=== PATIENT | female | born 1935 | race Caucasian/White ===

== ENCOUNTER 2018-08-01 14:00 | Inpatient (IN) | payer OTHER ==
[2018-08-01] MEDS ORDERED: Nitroglycerin TAB 0.4 MG* 0.4 MG TAB SL ONE (15:15)
[2018-08-01] MEDS ORDERED: Aspirin 81 mg CHEW TAB* 81 MG TAB.CHEW PO ONE (15:15)
[2018-08-01 15:33] LABS: ABS Basophils 0 10^3/ul (0-0.2); ABS Eosinophils 0.1 10^3/ul (0-0.6); ABS Lymphocytes 2.5 10^3/ul (1.0-4.8); ABS Monocytes 0.6 10^3/ul (0-0.8); ABS Neutrophils 3.7 10^3/ul (1.5-7.7); ABS Nucleated RBC 0 10^3/ul; Eosinophil % 1.2 %; Hematocrit 37 % (35-47); Hemoglobin 12.7 g/dl (12.0-16.0); Lymphocyte % 36.4 %; Mean Corpuscular HGB Conc 34 g/dl (31-36); Mean Corpuscular Hemoglobin 30 pg (27-31); Mean Corpuscular Volume 88 fL (80-97); Nucleated Red Blood Cells % 0; Platelet Count 200 10^3/ul (150-450); Red Blood Count 4.25 10^6/ul (4.00-5.40); Red Cell Distribution Width 14 % (10.5-15); White Blood Count 6.9 10^3/ul (3.5-10.8)
[2018-08-01 15:39] LABS: Activated Partial Thrombo Time 29.1 seconds (26.0-36.3); INR 0.9 (0.77-1.02)
--- NOTE | 2018-08-01 15:44 | ED ---
HPI Chest Pain - HPI Summary HPI Summary: An 83 y/o female presents to [facility] with a chief complaint of CP which she describes as a pressure since 07/30/18. She claims her pain worsens with deep breaths. She currently feels tachycardic. She rates her pain as 6/10. She has a Hx of CA, bypass and had a cardiac cath in August 2017 which reportedly did not find any issues. The patient also has a Hx of depression, but has not been taking her medication. She also c/o SOB and had PNA a few years ago. She does not take water pills. She denies pain or swelling in legs, Fever, Chills, Erythema (eyes), Sore throat, Cough, Abdominal pain, Vomiting, Nausea,Dysuria, Hematuria, Myalgia, Edema, Rash and Dizziness. 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 - History of Current Complaint Chief Complaint: EDShortnessOfBreath Time Seen by Provider: 08/01/18 14:30 Hx Obtained From: Patient, Family/Flight Agent Onset/Duration: Started Days Ago, Still Present Timing: Constant Initial Severity: Moderate Current Severity: Moderate Pain Intensity: 6 Pain Scale Used: 0-10 Numeric Chest Pain Location: Diffuse Chest Pain Radiates: No Character: Pressure/Squeezing Aggravating Factor(s): Deep Breaths Alleviating Factor(s): Nothing Associated Signs and Symptoms: Positive: Shortness of Breath. Negative: Dizziness, Fever, Chills, Nausea, Cough, Vomiting, Edema - Allergy/Home Medications Allergies/Adverse Reactions: Allergies Allergy/AdvReac Type Severity Reaction Status Date / Time Penicillins Allergy Unknown Verified 08/01/18 14:22 Reaction Details Home Medications: Home Medications Allopurinol TAB* [Zyloprim 100 MG TAB*] 200 mg PO DAILY 08/01/18 [History Confirmed 08/01/18] Aspirin EC TAB* [Ecotrin EC Low Dose 81 MG*] 81 mg PO DAILY 08/01/18 [History Confirmed 08/01/18] Citalopram TAB* [Celexa TAB*] 20 mg PO DAILY 08/01/18 [History Confirmed ] Nitroglycerin 0.3 MG/HR PATCH* [Nitroglycerin 7.5 MG PATCH*] 1 patch TRANSDERM DAILY 08/01/18 [History Confirmed 08/01/18] traZODone TAB* [Desyrel TAB*] 50 mg PO BEDTIME 08/01/18 [History Confirmed 08/01] PMH/Surg Hx/FS Hx/Imm Hx Cardiovascular History: Reports: Hx Angina, Hx Coronary Artery Disease, Hx Hypercholesterolemia, Hx Hypertension, Hx Myocardial Infarction - Immunization History Immunizations Up to Date: Yes Infectious Disease History: No Infectious Disease History: Denies: Traveled Outside the [place] in Last 30 Days - Family History Known Family History: Positive: Unknown - Pt reports parents young and is unsure of FHx - Social History Alcohol Use: None Substance Use Type: Reports: None Smoking Status (MU): Never Smoked Tobacco Have You Smoked in the Last Year: No Review of Systems Negative: Fever, Chills Negative: Erythema Negative: Sore Throat Positive: Chest Pain Positive: Shortness Of Breath. Negative: Cough Negative: Abdominal Pain, Vomiting, Nausea Negative: dysuria, hematuria Negative: Myalgia - leg, Edema - leg Negative: Rash Neurological: Negative - dizziness All Other Systems Reviewed And Are Negative: Yes Physical Exam - Summary Physical Exam Summary: Constitutional: Well-developed, Well-nourished, Alert. (-) Distressed Skin: Warm, Dry HENT: Normocephalic; Atraumatic Eyes: Conjunctiva normal Neck: Musculoskeletal ROM normal neck. (-) JVD, (-) Stridor, (-) Tracheal deviation Cardio: Rhythm regular, rate normal, Heart sounds normal; Intact distal pulses; The pedal pulses are 2+ and symmetric. Radial pulses are 2+ and symmetric. (-) Murmur Pulmonary/Chest wall: Effort normal. (-) Respiratory distress, (-) Wheezes, (+) Rales in both lungs Abd: Soft, (-) epigastric tenderness, (-) Distension, (-) Guarding, (-) Rebound Musculoskeletal: (-) Edema Lymph: (-) Cervical adenopathy Neuro: Alert, Oriented x3 Psych: Mood and affect Normal Triage Information Reviewed: Yes Vital Signs On Initial Exam: Initial Vitals Temp Pulse Resp BP Pulse Ox 97.8 F 94 18 134/66 97 08/01/18 14:17 08/01/18 14:17 08/01/18 14:17 08/01/18 14:17 08/01/18 14:17 Vital Signs Reviewed: Yes Diagnostics - Vital Signs Vital Signs Temp Pulse Resp BP Pulse Ox 08/01/18 14:17 97.8 F 94 18 134/66 97 - Laboratory Lab Results: Lab Results 08/01/18 Range/Units 15:12 WBC 6.9 (3.5-10.8) 10^3/ul RBC 4.25 (4.00-5.40) 10^6/ul Hgb 12.7 (12.0-16.0) g/dl Hct 37 (35-47) % MCV 88 (80-97) fL MCH 30 (27-31) pg MCHC 34 (31-36) g/dl RDW 14 (10.5-15) % Plt Count 200 (150-450) 10^3/ul MPV 8.0 (7.4-10.4) fL Neut % (Auto) 53.4 % Lymph % (Auto) 36.4 % [place] % (Auto) 8.5 % Eos % (Auto) 1.2 % Baso % (Auto) 0.5 % Absolute Neuts (auto) 3.7 (1.5-7.7) 10^3/ul Absolute Lymphs (auto) 2.5 (1.0-4.8) 10^3/ul Absolute Monos (auto) 0.6 (0-0.8) 10^3/ul Absolute Eos (auto) 0.1 (0-0.6) 10^3/ul Absolute Basos (auto) 0 (0-0.2) 10^3/ul Absolute Nucleated RBC 0 10^3/ul Nucleated RBC % 0 Result Diagrams: 08/04/18 06:00 08/04/18 05:59 Lab Statement: Any lab studies that have been ordered have been reviewed, and results considered in the medical decision making process. - Radiology CXR Radiology Interpretation Completed By: Radiologist Summary of Radiographic Findings: No active cardiopulmonary disease is noted. ED physician has reviewed this imaging report. - CT chest/thorax CTA CT Interpretation Completed By: Radiologist Summary of CT Findings: 1. No pulmonary embolism. 2. Patchy groundglass opacity in bilateral lungs. Etiology can be. edema/infectious. ED physician has reviewed this imaging report. - EKG 18:25 Cardiac Rate: NL - 74 bpm EKG Rhythm: Sinus Rhythm Summary of EKG Findings: no STEMI. Re-Evaluation - Re-Evaluation First Eval Re-Evaluation Time: 20:15 Change: Unchanged Comment: Spoke to Pt about results and plan Chest Pain Course/Dx - Course Course Of Treatment: An 83 y/o female presents to [facility] with a chief complaint of CP which she describes as a pressure since 07/30/18. She claims her pain worsens with deep breaths. She rates her pain as 6/10. She has a Hx of CA, bypass and had a cardiac cath in August 2017 which reportedly did not find any issues. The patient also has a Hx of depression, but has not been taking her medication. She also c/o SOB and had PNA a few years ago. She does not take water pills. She denies pain or swelling in legs, Fever, Chills, Erythema (eyes) , Sore throat, Cough, Abdominal pain, Vomiting, Nausea,Dysuria, Hematuria, Myalgia, Edema, Rash and Dizziness. 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 Her Physicial exam was remarkable with rales in both lungs. CXR impression: No active cardiopulmonary disease is noted. Chest/thorax CTA impression: 1. No pulmonary embolism. 2. Patchy groundglass opacity in bilateral lungs. Etiology can be. edema/infectious. EKG showed NSR at 74 bpm. In the ED course the patient was given Aspirin and NTG PO. Lab results obtained and were WNL. Dx: CP , PNA. The patient will be admitted to Dr. Beebe. - Diagnoses Provider Diagnoses: Chest pain, PNA (pneumonia) - Provider Notifications Discussed Care Of Patient With: Anya Beebe Time Discussed With Above Provider: 20:00 Instructed by Provider To: Admit As Inpatient Discharge - Sign-Out/Discharge Documenting (check all that apply): Patient Departure - admit - Discharge Plan Condition: Fair Disposition: ADMITTED TO [facility] - Billing Disposition and Condition Condition: FAIR Disposition: Admitted to [facility] - Attestation Statements Document Initiated by Bere: Yes Documenting Scribe: Raulito Contreras Provider For Whom Bere is Documenting (Include Credential): Ulises Fenton MD Scribe Attestation: Raulito Santos scribed for Ulises Fenton MD on 08/10/18 at 1208. Scribe Documentation Reviewed: Yes Provider Attestation: The documentation as recorded by the Raulito smith accurately reflects the service I personally performed and the decisions made by me, Ulises Fenton MD Status of Scribe Document: Viewed
[2018-08-01 16:02] LABS: Albumin 4.1 g/dL (3.2-5.2); Albumin/Globulin Ratio 1.6 (1-3); BUN/Creatinine Ratio 32.4 (8-20); Calcium 9.5 mg/dL (8.6-10.3); Globulin 2.5 g/dL (2-4); Total Bilirubin 0.4 mg/dL (0.2-1.0); Total Protein 6.6 g/dL (6.4-8.9)
[2018-08-01] MEDS ORDERED: Iodixanol* (CONTRAST) 320 MG/ML 100 ML SDV IV ONE (19:01)
[2018-08-01] MEDS ORDERED: cefTRIAXone(*) 1 GM in NS 0.9% 50 ML* 50 ML IVPB ONE (20:15)
[2018-08-01] MEDS ORDERED: Azithromycin IV(*) 500 MG in NS 0.9% 250 ML* 250 ML IVPB ONE (20:15)
[2018-08-01] MEDS ORDERED: Al Hydrox/Mg Hydrox/Simet LIQ* 30 ML UDC PO PRN (20:50)
[2018-08-01] MEDS ORDERED: Acetaminophen TAB* 325 MG PO PRN (20:50)
[2018-08-01] MEDS ORDERED: Nitroglycerin TAB 0.4 MG* 0.4 MG TAB SL PRN (20:55)
[2018-08-01] MEDS: traZODone TAB* 50 MG TAB PO SCH (22:37)
[2018-08-01] MEDS: amLODIPine TAB* 5 MG PO SCH (22:38)
[2018-08-01] MEDS: Heparin VIAL(*) 5000 UNITS/ML VIAL (FIVE THOUSAND) SUBCUT SCH (22:38)
[2018-08-01 23:31] LABS: Urine Appearance Clear; Urine Bilirubin Negative (Negative); Urine Blood Negative (Negative); Urine Color Straw; Urine Glucose Negative (Negative); Urine Ketones Negative (Negative); Urine Nitrite Negative (Negative); Urine Protein Negative (Negative); Urine Specific Gravity 1.032 (1.010-1.030); Urine Urobilinogen Negative (Negative)
--- NOTE | 2018-08-02 05:01 | HP ---
CC: Dr. Jess Norman.* HISTORY AND PHYSICAL: DATE OF ADMISSION: 08/01/18 PROVIDER: Zarina Everett NP PRIMARY CARE PROVIDER: Dr. Jess Norman. ATTENDING PHYSICIAN WHILE IN THE HOSPITAL: Dr. Uyen Small* (dictated by Zarina Everett NP). CHIEF COMPLAINT: 1. Chest pressure. 2. Shortness of breath. HISTORY OF PRESENT ILLNESS: History of present illness was obtained from her daughter as the patient only speaks fluent [place]ian. Per the daughter, the patient reports that her blood pressure had been lower than normal and had an increased heart rate in the 90s and was feeling lousy at home. The patient reports that she has had chest pressure x1 week worse for the past 3 days and increased shortness of breath over the past 2 days. The patient reports that it is hard to take a deep breath, it caused increased chest pain. Denies any cough or fever. Denies any chills. Denies any nausea, vomiting, or diarrhea. Denies any gross hematuria or dysuria. Denies any focal weakness or sensory loss. Denies any visual complaints. Denies any dysphagia. Denies any arthralgias or myalgias. Denies any rashes or lesions. Denies any psychosis. Does report increased anxiety. Due to the patient's history of CABG with 5 vessel bypass and her complaint of chest pressure and CT scan that showed bilateral patchy pneumonia we were asked to see and evaluate her for admission. PAST MEDICAL HISTORY: 1. CAD with cardiac bypass. 2. ME in 2002. 3. Mitral valve disease. 4. Gout. 5. Nephrolithiasis. 6. Diabetes type 2. PAST SURGICAL HISTORY: 1. CABG x5 vessel. 2. Appendectomy. 3. Cataract. 4. Carpal tunnel. 5. Kidney stone. MEDICATIONS: Home Medications include: 1. Trazodone 50 mg p.o. at bedtime. 2. Omeprazole 20 mg p.o. daily. 3. Nitroglycerin 0.4 mg sublingual q.5 minutes p.r.n. 4. Nitroglycerin 0.3 patch, one patch transdermally. 5. Metoprolol 75 mg p.o. daily. 6. Losartan 100 mg p.o. daily. 7. Diltiazem 120 mg p.o. daily. 8. Celexa 20 mg p.o. daily. 9. Atorvastatin 20 mg p.o. daily. 10. Amlodipine 5 mg p.o. b.i.d. 11. Aspirin 81 mg p.o. daily. 12. Allopurinol 200 mg p.o. daily. 13. Irbesartan 75 mg p.o. daily. ALLERGIES TO MEDICATIONS: PENICILLIN. FAMILY HISTORY: Mother with a history of stroke and hypertension. No diabetes or cancer reported within the family. SOCIAL HISTORY: The patient denies any alcohol, tobacco, or illicit drug use. She is . She lives alone. Surrogate decision maker in the event she is unable to make her own decisions is her daughter, Mei Darby, her number is [phone]. She is a full code. REVIEW OF SYSTEMS: There is no documented fever. There has been no significant weight change. No double vision. There was no ear discharge, no rhinorrhea. No sore throat. Denies any cough, congestion, or hemoptysis. She does report chest pressure, worse with deep breath and shortness of breath. Denies any nausea, vomiting, or diarrhea. Denies any gross hematuria or dysuria. Denies any focal weakness or sensory loss. No visual complaints. No dysphagia. No arthralgias or myalgias. No rashes or lesions. No depression, but does report increased anxiety. PHYSICAL EXAMINATION GENERAL: At this time, Ms. Gonzalez is an 83-year-old female who appears well, sitting on the stretcher in the emergency room. She does not appear to be in acute distress. VITAL SIGNS: Blood pressure 138/77, heart rate is 72, respirations are 20, O2 saturation 96%, temperature was 97.8. HEENT: Head is atraumatic and normocephalic. Eyes: EOMs are intact. Sclerae anicteric and not pale. Oral mucosa appears to be moist. NECK: Supple. LUNGS: Clear to auscultation bilaterally with a few scattered crackles on the bases. No wheezes or rales. CARDIAC: S1 and S2. Regular rate and rhythm. No murmurs, rubs, or gallops. ABDOMEN: Soft and nontender. Bowel sounds are present x4. EXTREMITIES: Pulses are +2 bilaterally. She has no edema. She is able to move all 4 extremities with 5/5 strength. NEUROLOGIC: She is awake, alert, and oriented x3. Speech is clear, mentation is intact. No gross focal deficits. SKIN: Intact. DIAGNOSTIC STUDIES AND LABORATORY DATA: WBCs were 6.9, RBCs 4.25, hemoglobin was 12.7, hematocrit was 37, platelet count was 200, INR was 0.90, APTT was 29.1 , D- dimer was 85. Sodium 139, potassium 4.0, chloride 111, carbon dioxide was 20, anion gap was 8, BUN was 33, creatinine 1.02, glucose was 104, lactic acid was 0.9, calcium 9.5. AST were 10, ALTs were 8, alkaline phosphatase was 68. Troponin was 0.02 and 0.01. BNP was 92. Procalcitonin was less than 1. She had a chest x-ray. Radiologist Impression: No active cardiopulmonary disease. EKG shows sinus rhythm at a rate of 74. 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 CT of the chest shows no pulmonary embolism, patchy ground glass opacity in bilateral lungs, etiology can be edema versus infectious. ASSESSMENT AND PLAN: Ms. Gonzalez is an 83-year-old female who presented to the emergency room today with complaints of chest pressure x1 week and fluctuation in her blood pressure and heart rate. She will be admitted under observation for: 1. Bilateral pneumonia. I suspect this is related to her shortness of breath and chest pressure she has experienced over the past week. I will place her on azithromycin and ceftriaxone antibiotics. Her procalcitonin was negative. I will send a urine for legionella, Strep pneumoniae, as well as a UA. The patient is not requiring oxygen at this time. Her O2 saturation is 96% on room air. We will continue to monitor overnight and treat symptoms as needed. 2. Chest pressure. We will continue to trend her troponins; at this point her troponins are negative. I will repeat an EKG in the morning. The patient has a STAR score of 4, giving her 20% risk at 14 days of all cause mortality resulting in recurrent ischemia requiring urgent revascularization. If her troponin is to bump, I would recommend considering echocardiogram and further evaluation in the a.m. 3. History of coronary artery disease. I would recommend continuing on aspirin , nitro patch, diltiazem, losartan, atorvastatin as previously prescribed. 4. History of gout. Continue allopurinol 200 mg p.o. daily. 5. Hyperlipidemia. She will continue on atorvastatin as previously prescribed. 6. DVT prophylaxis. I will place her on heparin subcu. 7. Code status. She is a full code. 8. Fluids, electrolytes, and nutrition. She can have a heart-healthy, decaf okay diet. TIME SPENT: Time spent on this admission was 60 minutes, greater than half that time was spent [id number] with the patient obtaining my history and physical, the other half the time was spent going over my plan of care and implementing my plan of care. I discussed this with my attending, Dr. Uyen Small, she is in agreement with my plan. ZARINA EVERETT, GEOVANNI [id number]/[facility] #: [id number] MTDD
[2018-08-02] MEDS: Heparin VIAL(*) 5000 UNITS/ML VIAL (FIVE THOUSAND) SUBCUT SCH ×3 (05:10→22:07)
[2018-08-02 07:00] LABS: ABS Basophils 0 10^3/ul (0-0.2); ABS Eosinophils 0.1 10^3/ul (0-0.6); ABS Lymphocytes 2.4 10^3/ul (1.0-4.8); ABS Monocytes 0.5 10^3/ul (0-0.8); ABS Neutrophils 2.5 10^3/ul (1.5-7.7); ABS Nucleated RBC 0 10^3/ul; Eosinophil % 2.3 %; Hematocrit 36 % (35-47); Lymphocyte % 43.3 %; Mean Corpuscular HGB Conc 34 g/dl (31-36); Mean Corpuscular Hemoglobin 30 pg (27-31); Mean Corpuscular Volume 89 fL (80-97); Mean Platelet Volume 7.9 fL (7.4-10.4); Nucleated Red Blood Cells % 0.3; Platelet Count 167 10^3/ul (150-450); Red Blood Count 4.02 10^6/ul (4.00-5.40); Red Cell Distribution Width 14 % (10.5-15); White Blood Count 5.5 10^3/ul (3.5-10.8)
[2018-08-02 07:18] LABS: BUN/Creatinine Ratio 28.8 (8-20); Calcium 9.1 mg/dL (8.6-10.3); EGFR Non-African American 68.8 (>60); Potassium 4.1 mmol/L (3.5-5.0)
[2018-08-02] MEDS: Aspirin EC TAB* 81 MG TAB.EC PO SCH (08:22)
[2018-08-02] MEDS: Allopurinol TAB* 100 MG PO SCH (08:23)
[2018-08-02] MEDS: Citalopram TAB* 20 MG PO SCH (08:23)
[2018-08-02] MEDS: Omeprazole CAP (NF) 20 MG CAP.DR PO SCH (08:23)
[2018-08-02] MEDS: amLODIPine TAB* 5 MG PO SCH ×2 (08:23→21:08)
[2018-08-02] MEDS: Nitroglycerin 0.3 MG/HR PATCH* (7.5 MG) TRANSDERM SCH (08:24)
[2018-08-02] MEDS: Atorvastatin* 20 MG TAB PO SCH (08:24)
[2018-08-02] MEDS ORDERED: Metoprolol Tartrate TAB* 50 mg PO SCH (09:00)
[2018-08-02] MEDS ORDERED: Diltiazem CD CAP* 120 MG PO SCH (09:00)
[2018-08-02] MEDS ORDERED: Losartan TAB* 25 MG PO SCH ×2 (09:00)
[2018-08-02] MEDS ORDERED: Azithromycin TAB* 250 MG PO SCH (09:00)
[2018-08-02 09:23] LABS: C Reactive Protein 1.11 mg/L (<8.01)
[2018-08-02] MEDS ORDERED: Atropine SYRINGE* 0.1 MG/ML 10 ML SYRINGE (1 MG) IV PUSH SCH (14:00)
--- NOTE | 2018-08-02 14:09 | PN ---
Subjective Date of Service: 08/02/18 Interval History: Pt started having occasional asymptomatic sinus pauses, felt well, denied CPP/ SOB. Went to bathroom by herself (detached personal alarm) and got in asystole with subsequent syncope x 2. when regained consciousness(LOC lasted seconds) pt was in NAD, denies CP, neurologically intact, 02 sat 96% on RA. Pacer pads were applied and pt was transferred to ICU Objective Active Medications: Acetaminophen (Tylenol Tab*) 650 mg PO Q4H PRN PRN Reason: FEVER/PAIN Al Hydrox/Mg Hydrox/Simethicone (Maalox Plus*) 30 ml PO Q6H PRN PRN Reason: INDIGESTION Allopurinol (Zyloprim Tab*) 200 mg PO DAILY [facility] Last Admin: 08/02/18 08:23 Dose: 200 mg Amlodipine Besylate (Norvasc Tab*) 5 mg PO BID [facility] Aspirin (Aspirin Ec Tab*) 81 mg PO DAILY [facility] Last Admin: 08/02/18 08:22 Dose: 81 mg Atorvastatin Calcium (Lipitor*) 20 mg PO DAILY [facility] Last Admin: 08/02/18 08:24 Dose: 20 mg Atropine Sulfate (Atropine Syringe*) 0.5 mg IV PUSH Q1H [facility] Citalopram Hydrobromide (Celexa Tab*) 20 mg PO DAILY [facility] Last Admin: 08/02/18 08:23 Dose: 20 mg Heparin Sodium (Porcine) (Heparin Vial(*)) 5,000 units SUBCUT Q8HR [facility] Last Admin: 08/02/18 13:34 Dose: 5,000 units Nitroglycerin (Nitroglycerin 7.5 Mg Patch*) 1 patch TRANSDERM DAILY [facility] Last Admin: 08/02/18 08:24 Dose: 1 patch Nitroglycerin (Nitroglycerin Tab 0.4 Mg*) 0.4 mg SL Q5M PRN PRN Reason: chest pain Omeprazole (Prilosec Cap*) 20 mg PO DAILY@0730 [facility] Last Admin: 08/02/18 08:23 Dose: 20 mg Pharmacy Profile Note (Nitro Patch/Oint Remove*) 1 note PATCH OFF BEDTIME [facility] Trazodone HCl (Desyrel Tab*) 50 mg PO BEDTIME [facility] Last Admin: 08/01/18 22:37 Dose: 50 mg Vital Signs - 8 hr 08/02/18 08/02/1808/02/18 07:25 08:01 11:39 Temperature 97.3 F 97.8 F Pulse Rate 66 72 Respiratory 16 20 16 Rate Blood Pressure 124/55 101/56 (mmHg) O2 Sat by Pulse 98 95 Oximetry 08/02/18 13:02 Temperature 97.6 F Pulse Rate 68 Respiratory 14 Rate Blood Pressure 112/60 (mmHg) O2 Sat by Pulse 95 Oximetry Oxygen Devices in Use Now: None Appearance: 83 yo F in nAD, aAOx3 Eyes: No Scleral Icterus, PERRLA Ears/Nose/Mouth/Throat: NL Teeth, Lips, Gums, Mucous Membranes Moist Neck: NL Appearance and Movements; NL JVP, Trachea Midline Respiratory: Symmetrical Chest Expansion and Respiratory Effort, Clear to Auscultation Cardiovascular: NL Sounds; No Murmurs; No JVD, RRR Abdominal: NL Sounds; No Tenderness; No Distention Lymphatic: No Cervical Adenopathy Extremities: No Edema, No Clubbing, Cyanosis Skin: No Rash or Ulcers, No Nodules or Sclerosis Neurological: Alert and Oriented x 3, NL Muscle Strength and Tone, - - primarly irish speaking Result Diagrams: 08/02/18 06:53 08/02/18 06:53 Additional Lab and Data: Lab Results 08/01/18 Range/Units 15:12 WBC 6.9 (3.5-10.8) 10^3/ul RBC 4.25 (4.00-5.40) 10^6/ul Hgb 12.7 (12.0-16.0) g/dl Hct 37 (35-47) % MCV 88 (80-97) fL MCH 30 (27-31) pg MCHC 34 (31-36) g/dl RDW 14 (10.5-15) % Plt Count 200 (150-450) 10^3/ul MPV 8.0 (7.4-10.4) fL Neut % (Auto) 53.4 % Lymph % (Auto) 36.4 % [place] % (Auto) 8.5 % Eos % (Auto) 1.2 % Baso % (Auto) 0.5 % Absolute Neuts (auto) 3.7 (1.5-7.7) 10^3/ul Absolute Lymphs (auto) 2.5 (1.0-4.8) 10^3/ul Absolute Monos (auto) 0.6 (0-0.8) 10^3/ul Absolute Eos (auto) 0.1 (0-0.6) 10^3/ul Absolute Basos (auto) 0 (0-0.2) 10^3/ul Absolute Nucleated RBC 0 10^3/ul Nucleated RBC % 0 Assess/Plan/Problems-Billing Assessment: 83 yo F with h/o CAD, CABG 2009,(cath in 10/17 :PEÑALOZA to LAD patent, graft to diagonal and lateral branch patent, graft to OM occluded, LAD, RCA both occluded proximally, collaterals from LAD to RCA, left main 60% distal lesion), chronic angina(SOB and or CP 10 min after walking, 2 pillows at night, uses nitro frequently), HTN, gout, kidney stones, glucose intolerance presented with CP/SOB. - Patient Problems (1) Chest pain Comment: due to chronic angina. troponins neg so far. (2) SOB (shortness of breath) Comment: due to symptoms of CAD CTA shows patchy ground glass opacity, but CRP and procalcitonin neg. will stop Azithro/Ceftriaxone (3) Asystole Comment: and subsequent syncope on 08/02/18 AM Pt transferred to ICU. Lytes OK. will f/u trop, TSH Dr. Palomares consulted. Cardizem, losartan, lopressor -held Azithro could contribute to arrythmias and was d/c'd CT brrain ordered since pt hit head when syncope occured (4) DVT prophylaxis Comment: HSQ Status and Disposition: OBV changed to inpatient
[2018-08-02 14:15] LABS: TSH (Thyroid Stimulating Horm) 2.76 mcIU/mL (0.34-5.60)
[2018-08-02] MEDS ORDERED: Atropine SYRINGE* 0.1 MG/ML 10 ML SYRINGE (1 MG) IV PUSH PRN (15:00)
[2018-08-02 15:48] LABS: Magnesium 1.6 mg/dL (1.9-2.7)
[2018-08-02] MEDS ORDERED: Diazepam TAB(*) 5 MG PO ONE (18:23)
[2018-08-02] MEDS ORDERED: cefTRIAXone(*) 1 GM in NS 0.9% 50 ML* 50 ML IVPB SCH (21:00)
[2018-08-02] MEDS: traZODone TAB* 50 MG TAB PO SCH (21:08)
--- NOTE | 2018-08-02 21:10 | CONS ---
CC: Dr. Link Gamino; Dr. Norman * CARDIOLOGY CONSULTATION: DATE OF CONSULT: 08/02/18 INDICATION FOR CONSULTATION: Asystole, syncope. HISTORY OF PRESENT ILLNESS: The patient is an 83-year-old female with a history of hypertension, history of coronary artery disease, coronary artery bypass surgery who was admitted to the hospital with cough and shortness of breath. She was ultimately diagnosed with pneumonia. She was started on antibiotics. While in the hospital, she had progressively lengthening NC interval and also had episodes of non-conducted P waves. When I was evaluating the patient on the floor, she had a 9- second run of asystole at which time she had a syncopal episode in the bathroom. Before we were able to get out of the bathroom, she had a second episode of 6 seconds of asystole. Ultimately, she was put back on the stretcher and transported down to the intensive care unit. Since being in the intensive care unit, she has had no further episodes of asystole. The patient speaks only Bangladeshi, so I could not get any history from the patient. All history is from the daughter and past medical records. PAST MEDICAL HISTORY: Significant for: 1. Coronary artery disease. 2. Coronary artery bypass surgery in 2009. At that time, she had 5-vessel bypass. 3. She had a repeat cardiac catheterization in September 2017. At that time, her PEÑALOZA to her LAD was patent, saphenous vein graft to the diagonal was patent , saphenous vein graft to the posterolateral branch was patent, and saphenous vein graft to the OM was occluded. Her minto LAD and circumflex artery were occluded. Right coronary artery was occluded. There were collaterals from the LAD to the right coronary artery. OUTPATIENT MEDICATIONS: 1. Nitroglycerin patch. 2. Amlodipine 5 mg a day. 3. Irbesartan 75 mg a day. 4. Metoprolol tartrate 100 mg b.i.d. 5. Diltiazem ER 120 mg a day. 6. Atorvastatin 20 mg a day. 7. Aspirin 81 mg a day. 8. Allopurinol 100 mg a day. 9. Trazodone 50 mg a day. ALLERGIES: To PENICILLIN. SOCIAL HISTORY: She lives with her daughter. Again, she does not speak any Argentine. Denies any tobacco or alcohol use. REVIEW OF SYSTEMS: Could not be done as she does not speak any Argentine. PHYSICAL EXAM: Height is 5 feet 4 inches, weight is 166 pounds. Temperature 97.8, heart rate is 65, blood pressure 128/70, respiratory rate is 14. Sclerae anicteric. Oropharynx is pink without erythema. Carotids are 2+ without bruits. JVD is normal. Thyroid is normal. Cardiac Exam: S1, S2 without any murmurs, rubs, or gallops. Lungs: Clear to auscultation bilaterally. There is no dullness to percussion. Abdomen is soft, nontender, nondistended with normoactive bowel sounds. Extremities show no edema. She has 2+ pulses throughout. The patient is awake, alert, and oriented. LABORATORY/DIAGNOSTIC STUDIES: CBC within normal limits. Chemistry is within normal limits. Troponins are negative x3. TSH 2.79. INR is 0.9. The patient did have an echocardiogram in September 2017, which showed normal LV function with ejection fraction of 55%, diastolic dysfunction, moderate mitral regurgitation. IMPRESSION: This is an 83-year-old female with a history of coronary artery disease who was admitted to the hospital with pneumonia. While in the hospital , she had 2 syncopal episodes associated with long runs of asystole. The question is whether her worsening of her cardiac conduction could have been secondary to her antibiotics. The patient was on azithromycin, which is possibly because of conduction abnormalities. Because of the patient's underlying coronary artery disease and need for both beta- blockers and calcium channel blockers for symptom relief, it is my recommendation that the patient undergo permanent pacemaker implantation because of her episodes. I think if we consider stopping these medications, the patient's angina will be much worse and more difficult to control. I discussed this with the patient's daughter and she agrees to proceed. The patient will likely undergo permanent pacemaker implantation by Dr. De La Torre in the morning. [id number]/[facility] #: [id number] [facility]
[2018-08-02] MEDS: Nitro Patch/OINT Remove PATCH OFF SCH (21:18)
[2018-08-02] MEDS ORDERED: NS 0.9% 1000 ML* 1,000 ML IV SCH (23:55)
[2018-08-03] MEDS: Heparin VIAL(*) 5000 UNITS/ML VIAL (FIVE THOUSAND) SUBCUT SCH ×3 (05:46→21:05)
[2018-08-03 06:12] LABS: ABS Basophils 0 10^3/ul (0-0.2); ABS Eosinophils 0.1 10^3/ul (0-0.6); ABS Lymphocytes 2.4 10^3/ul (1.0-4.8); ABS Monocytes 0.5 10^3/ul (0-0.8); ABS Neutrophils 3.4 10^3/ul (1.5-7.7); ABS Nucleated RBC 0 10^3/ul; Eosinophil % 2.3 %; Hematocrit 34 % (35-47); Hemoglobin 11.6 g/dl (12.0-16.0); Lymphocyte % 36.8 %; Mean Corpuscular HGB Conc 34 g/dl (31-36); Mean Corpuscular Hemoglobin 30 pg (27-31); Mean Corpuscular Volume 88 fL (80-97); Mean Platelet Volume 8.6 fL (7.4-10.4); Nucleated Red Blood Cells % 0.2; Platelet Count 159 10^3/ul (150-450); Red Blood Count 3.87 10^6/ul (4.00-5.40); Red Cell Distribution Width 14 % (10.5-15); White Blood Count 6.4 10^3/ul (3.5-10.8)
[2018-08-03 07:45] LABS: Calcium 8.8 mg/dL (8.6-10.3); Potassium 3.8 mmol/L (3.5-5.0)
[2018-08-03 07:50] LABS: BUN/Creatinine Ratio 29.2 (8-20); EGFR Non-African American 60.9 (>60)
[2018-08-03] MEDS ORDERED: Diazepam TAB(*) 5 MG PO ONE (08:00)
[2018-08-03] MEDS ORDERED: Clindamycin 900 MG/D5W BAG(*) 900 MG/50 ML BAG IVPB ONE ×2 (08:00→11:00)
[2018-08-03] MEDS ORDERED: Magnesium Sulfate 2 GM IV* 2 GM/50 ML BAG IVPB ONE (09:07)
[2018-08-03] MEDS: Nitroglycerin 0.3 MG/HR PATCH* (7.5 MG) TRANSDERM SCH (09:20)
[2018-08-03] MEDS ORDERED: Diazepam TAB(*) 5 MG PO PRN (10:03)
[2018-08-03] MEDS ORDERED: fentaNYL* 50 MCG/ML 2 ML VIAL (100 MCG VIAL) ONE (10:06)
[2018-08-03] MEDS ORDERED: Midazolam* 1 MG/ML 5 ML VIAL (5 MG) ONE (10:06)
[2018-08-03] MEDS ORDERED: Naloxone* 0.4 MG/ML 1 ML VIAL ONE (10:06)
[2018-08-03] MEDS ORDERED: Iohexol 300* (CONTRAST) 10 ML SDV ONE (10:07)
[2018-08-03] MEDS ORDERED: Flumazenil* 0.1 MG/ML 5 ML MDV ONE (10:07)
[2018-08-03] MEDS ORDERED: Lidocaine 1% INJ* 10 MG/ML 30 ML SDV ONE (10:17)
--- NOTE | 2018-08-03 13:48 | PN ---
Subjective Date of Service: 08/03/18 - CC: syncope Interval History: I talked to the patient with her daughter Mei hawk. Not dizzy, no recurrent syncopal episodes, no chest pain. Medications Active Medications: Acetaminophen (Tylenol Tab*) 650 mg PO Q4H PRN PRN Reason: FEVER/PAIN Al Hydrox/Mg Hydrox/Simethicone (Maalox Plus*) 30 ml PO Q6H PRN PRN Reason: INDIGESTION Allopurinol (Zyloprim Tab*) 200 mg PO DAILY [facility] Last Admin: 08/02/18 08:23 Dose: 200 mg Amlodipine Besylate (Norvasc Tab*) 5 mg PO BID [facility] Last Admin: 08/02/18 21:08 Dose: 5 mg Aspirin (Aspirin Ec Tab*) 81 mg PO DAILY [facility] Last Admin: 08/02/18 08:22 Dose: 81 mg Atorvastatin Calcium (Lipitor*) 20 mg PO DAILY [facility] Last Admin: 08/02/18 08:24 Dose: 20 mg Atropine Sulfate (Atropine Syringe*) 0.5 mg IV PUSH .SEE COMMENTS PRN PRN Reason: SEE COMMENTS Citalopram Hydrobromide (Celexa Tab*) 20 mg PO DAILY [facility] Last Admin: 08/02/18 08:23 Dose: 20 mg Diazepam (Valium Tab(*)) 5 mg PO ONCALL PRN PRN 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 Stop: 08/03/18 17:00 Heparin Sodium (Porcine) (Heparin Vial(*)) 5,000 units SUBCUT Q8HR [facility] Last Admin: 08/03/18 05:46 Dose: 5,000 units Sodium Chloride (Ns 0.9% 1000 Ml*) 1,000 mls @ 75 mls/hr IV PER RATE [facility] Last Admin: 08/02/18 23:36 Dose: 75 mls/hr Sodium Chloride (Ns 0.9% 1000 Ml*) 1,000 mls @ 100 mls/hr IV PER RATE [facility] Clindamycin HCl/Dextrose (Cleocin 300 Mg Ivpemix(*)) 300 mg in 50 mls @ 200 mls /hr IV Q8H [facility] Stop: 08/05/18 12:00 Nitroglycerin (Nitroglycerin 7.5 Mg Patch*) 1 patch TRANSDERM DAILY [facility] Last Admin: 08/03/18 09:20 Dose: Not Given Nitroglycerin (Nitroglycerin Tab 0.4 Mg*) 0.4 mg SL Q5M PRN PRN Reason: chest pain Omeprazole (Prilosec Cap*) 20 mg PO DAILY@0730 [facility] Last Admin: 08/02/18 08:23 Dose: 20 mg Pharmacy Profile Note (Nitro Patch/Oint Remove*) 1 note PATCH OFF BEDTIME [facility] Last Admin: 08/02/18 21:18 Dose: Not Given Trazodone HCl (Desyrel Tab*) 50 mg PO BEDTIME [facility] Last Admin: 08/02/18 21:08 Dose: 50 mg Objective Vital Signs: Temp Pulse Resp BP Pulse Ox 96.1 F 77 17 123/62 94 08/03/18 07:57 08/03/18 13:01 08/03/18 13:01 08/03/18 13:01 08/03/18 13:01 Oxygen Devices in Use Now: Nasal Cannula Appearance: older woman, reading in bed, no distress. Eyes: No Scleral Icterus, PERRLA Ears/Nose/Mouth/Throat: Mucous Membranes Moist Neck: NL Appearance and Movements; NL JVP Respiratory: Symmetrical Chest Expansion and Respiratory Effort, Clear to Auscultation Cardiovascular: NL Sounds; No Murmurs; No JVD, RRR Abdominal: NL Sounds; No Tenderness; No Distention, No Hepatosplenomegaly Skin: No Rash or Ulcers Neurological: Alert and Oriented x 3 Lines/Tubes/Other Access: Clean, Dry and Intact Peripheral IV Laboratory Results: 08/03/18 05:50 08/03/18 05:50 INR (Anticoag Therapy) 0.90 (0.77-1.02) 08/01/18 15:13 APTT 29.1 seconds (26.0-36.3) 08/01/18 15:13 Total Bilirubin 0.40 mg/dL (0.2-1.0) 08/01/18 15:12 AST 10 U/L (13-39) L 08/01/18 15:12 ALT 8 U/L (7-52) 08/01/18 15:12 Alkaline Phosphatase 68 U/L (34-104) 08/01/18 15:12 B-Natriuretic Peptide 92 pg/mL (<=100) 08/01/18 15:13 Total Protein 6.6 g/dL (6.4-8.9) 08/01/18 15:12 Albumin 4.1 g/dL (3.2-5.2) 08/01/18 15:12 Globulin 2.5 g/dL (2-4) 08/01/18 15:12 Albumin/Globulin Ratio 1.6 (1-3) 08/01/18 15:12 TSH 2.76 mcIU/mL (0.34-5.60) 08/02/18 06:53 08/01/18 08/01/18 08/02/18 15:12 21:11 00:40 Troponin I 0.02 0.01 0.02 08/02/18 08/02/18 15:15 20:10 Troponin I 0.01 0.01 EKG Data: Telemetry strips: Several episodes of long sinus pauses. Assessment/Plan 83 yo with CAD, presented with pneumonia and had a witnessed syncopal event with long sinus pause. Cardizem and beta dc were held with improvement. Plan was to implant dual chamber pacemaker and resume antianginal meds. Extensive discussions with the patient and her daughter about the pacer implant , details, indications, risks and benefits. Pt underwent an uneventful implant. Post implant CXR shows good lead placement and no pneumothorax. Will resume metoprolol at a lower dose and titrate if needed.
--- NOTE | 2018-08-03 16:58 | PN ---
Subjective Date of Service: 08/03/18 Interval History: Pt feels well, no dizziness, no CP, No SOB, seen this AM prior to pacemaker Objective Active Medications: Acetaminophen (Tylenol Tab*) 650 mg PO Q4H PRN PRN Reason: FEVER/PAIN Al Hydrox/Mg Hydrox/Simethicone (Maalox Plus*) 30 ml PO Q6H PRN PRN Reason: INDIGESTION Allopurinol (Zyloprim Tab*) 200 mg PO DAILY [facility] Last Admin: 08/02/18 08:23 Dose: 200 mg Amlodipine Besylate (Norvasc Tab*) 5 mg PO BID [facility] Last Admin: 08/02/18 21:08 Dose: 5 mg Aspirin (Aspirin Ec Tab*) 81 mg PO DAILY [facility] Last Admin: 08/02/18 08:22 Dose: 81 mg Atorvastatin Calcium (Lipitor*) 20 mg PO DAILY [facility] Last Admin: 08/02/18 08:24 Dose: 20 mg Atropine Sulfate (Atropine Syringe*) 0.5 mg IV PUSH .SEE COMMENTS PRN PRN Reason: SEE COMMENTS Citalopram Hydrobromide (Celexa Tab*) 20 mg PO DAILY [facility] Last Admin: 08/02/18 08:23 Dose: 20 mg Diazepam (Valium Tab(*)) 5 mg PO ONCALL PRN PRN Reason: [employer]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 Stop: 08/03/18 17:00 Heparin Sodium (Porcine) (Heparin Vial(*)) 5,000 units SUBCUT Q8HR [facility] Last Admin: 08/03/18 14:36 Dose: 5,000 units Sodium Chloride (Ns 0.9% 1000 Ml*) 1,000 mls @ 75 mls/hr IV PER RATE [facility] Last Admin: 08/02/18 23:36 Dose: 75 mls/hr Sodium Chloride (Ns 0.9% 1000 Ml*) 1,000 mls @ 100 mls/hr IV PER RATE [facility] Clindamycin HCl/Dextrose (Cleocin 300 Mg Ivpemix(*)) 300 mg in 50 mls @ 200 mls /hr IV Q8H [facility] Stop: 08/05/18 12:00 Nitroglycerin (Nitroglycerin 7.5 Mg Patch*) 1 patch TRANSDERM DAILY [facility] Last Admin: 08/03/18 09:20 Dose: Not Given Nitroglycerin (Nitroglycerin Tab 0.4 Mg*) 0.4 mg SL Q5M PRN PRN Reason: chest pain Omeprazole (Prilosec Cap*) 20 mg PO DAILY@0730 [facility] Last Admin: 08/02/18 08:23 Dose: 20 mg Pharmacy Profile Note (Nitro Patch/Oint Remove*) 1 note PATCH OFF BEDTIME [facility] Last Admin: 08/02/18 21:18 Dose: Not Given Trazodone HCl (Desyrel Tab*) 50 mg PO BEDTIME [facility] Last Admin: 08/02/18 21:08 Dose: 50 mg Vital Signs - 8 hr 08/03/18 08/03/18 08/03/18 09:00 09:01 09:51 Temperature Pulse Rate 84 82 Respiratory 19 22 14 Rate Blood Pressure 148/71 (mmHg) O2 Sat by Pulse 97 94 Oximetry 08/03/18 08/03/18 08/03/18 10:00 12:30 12:31 Temperature Pulse Rate 63 85 88 Respiratory 14 15 20 Rate Blood Pressure 122/70 (mmHg) O2 Sat by Pulse 99 96 95 Oximetry 08/03/18 08/03/18 08/03/18 13:00 13:01 14:00 Temperature Pulse Rate 76 77 70 Respiratory 11 17 16 Rate Blood Pressure 123/62 129/63 (mmHg) O2 Sat by Pulse 95 94 92 Oximetry 08/03/18 08/03/18 15:00 16:00 Temperature 97.8 F Pulse Rate 76 Respiratory 12 Rate Blood Pressure 134/74 (mmHg) O2 Sat by Pulse 98 Oximetry Oxygen Devices in Use Now: Nasal Cannula Appearance: 83 yo F in NAD, AAOx3 Eyes: No Scleral Icterus, PERRLA Ears/Nose/Mouth/Throat: NL Teeth, Lips, Gums, Mucous Membranes Moist Neck: NL Appearance and Movements; NL JVP, Trachea Midline Respiratory: Symmetrical Chest Expansion and Respiratory Effort, Clear to Auscultation Cardiovascular: NL Sounds; No Murmurs; No JVD, RRR Abdominal: NL Sounds; No Tenderness; No Distention Lymphatic: No Cervical Adenopathy Extremities: No Edema, No Clubbing, Cyanosis Skin: No Rash or Ulcers, No Nodules or Sclerosis Neurological: Alert and Oriented x 3, NL Muscle Strength and Tone Result Diagrams: 08/03/18 05:50 08/03/18 05:50 Additional Lab and Data: Lab Results 08/01/18 Range/Units 15:12 WBC 6.9 (3.5-10.8) 10^3/ul RBC 4.25 (4.00-5.40) 10^6/ul Hgb 12.7 (12.0-16.0) g/dl Hct 37 (35-47) % MCV 88 (80-97) fL MCH 30 (27-31) pg MCHC 34 (31-36) g/dl RDW 14 (10.5-15) % Plt Count 200 (150-450) 10^3/ul MPV 8.0 (7.4-10.4) fL Neut % (Auto) 53.4 % Lymph % (Auto) 36.4 % [place] % (Auto) 8.5 % Eos % (Auto) 1.2 % Baso % (Auto) 0.5 % Absolute Neuts (auto) 3.7 (1.5-7.7) 10^3/ul Absolute Lymphs (auto) 2.5 (1.0-4.8) 10^3/ul Absolute Monos (auto) 0.6 (0-0.8) 10^3/ul Absolute Eos (auto) 0.1 (0-0.6) 10^3/ul Absolute Basos (auto) 0 (0-0.2) 10^3/ul Absolute Nucleated RBC 0 10^3/ul Nucleated RBC % 0 Microbiology and Other Data: Microbiology 08/01/18 16:05 Aerobic Blood Culture - Preliminary Blood Venous No Growth Day 2 Anaerobic Blood Culture - Preliminary No Growth Day 2 08/01/18 15:12 Aerobic Blood Culture - Preliminary Blood Venous No Growth Day 2 Anaerobic Blood Culture - Preliminary No Growth Day 2 08/02/18 02:39 Legionella Urinary Antigen - Final Urine Negative Legionella Antigen Streptococcus pneumoniae Ag Screen - Final Negative S. pneumo Antigen Assess/Plan/Problems-Billing Assessment: 83 yo F with h/o CAD, CABG 2009,(cath in 10/17 :PEÑALOZA to LAD patent, graft to diagonal and lateral branch patent, graft to OM occluded, LAD, RCA both occluded proximally, collaterals from LAD to RCA, left main 60% distal lesion), chronic angina(SOB and or CP 10 min after walking, 2 pillows at night, uses nitro frequently), HTN, gout, kidney stones, glucose intolerance presented with CP/SOB. - Patient Problems (1) Chest pain Comment: due to chronic angina. troponins neg so far. (2) SOB (shortness of breath) Comment: due to symptoms of CAD CTA shows patchy ground glass opacity, but CRP and procalcitonin neg. will stop Azithro/Ceftriaxone . Pt used to f/u with Dr. Perry(Pul) in the past for " lung scarring". (3) Asystole Comment: and subsequent syncope on 08/02/18 AM Pt transferred to ICU 08/02/18. [place]ytes OK. F/u trop OK, TSH WNL Dr. Palomares/Britt consulted. Cardizem, losartan, lopressor -held Azithro could contribute to arrythmias and was d/c'd on 08/02/18 Pacer today (4) DVT prophylaxis Comment: HSQ Status and Disposition: inpatient
[2018-08-03] MEDS ORDERED: Omeprazole CAP (NF) 20 MG CAP.DR ONE (17:09)
[2018-08-03] MEDS ORDERED: Aspirin EC TAB* 81 MG TAB.EC ONE (17:09)
[2018-08-03] MEDS ORDERED: Citalopram TAB* 20 MG ONE (17:09)
[2018-08-03] MEDS ORDERED: Atorvastatin* 20 MG TAB ONE (17:10)
[2018-08-03] MEDS ORDERED: amLODIPine TAB* 5 MG ONE (17:10)
[2018-08-03] MEDS: Atorvastatin* 20 MG TAB PO SCH (17:13)
[2018-08-03] MEDS: Citalopram TAB* 20 MG PO SCH (17:13)
[2018-08-03] MEDS: Aspirin EC TAB* 81 MG TAB.EC PO SCH (17:13)
[2018-08-03] MEDS: Omeprazole CAP (NF) 20 MG CAP.DR PO SCH (17:13)
[2018-08-03] MEDS: amLODIPine TAB* 5 MG PO SCH ×2 (17:13→19:08)
[2018-08-03] MEDS: Allopurinol TAB* 100 MG PO SCH (17:15)
[2018-08-03] MEDS: Clindamycin 300 MG IVPREMIX(* 300 MG/50 ML SDV IV SCH (18:29)
[2018-08-03] MEDS: Nitro Patch/OINT Remove PATCH OFF SCH (21:04)
[2018-08-03] MEDS: traZODone TAB* 50 MG TAB PO SCH (21:05)
[2018-08-03] MEDS: Metoprolol Tartrate TAB* 25 MG PO SCH (21:05)
[2018-08-03] MEDS: NS 0.9% 1000 ML* 1,000 ML IV SCH (21:15)
[2018-08-04] MEDS: NS 0.9% 1000 ML* 1,000 ML IV SCH (01:27)
[2018-08-04] MEDS: Clindamycin 300 MG IVPREMIX(* 300 MG/50 ML SDV IV SCH ×2 (01:27→09:34)
[2018-08-04] MEDS: Heparin VIAL(*) 5000 UNITS/ML VIAL (FIVE THOUSAND) SUBCUT SCH (05:54)
[2018-08-04 06:08] LABS: ABS Basophils 0 10^3/ul (0-0.2); ABS Eosinophils 0.1 10^3/ul (0-0.6); ABS Lymphocytes 1.5 10^3/ul (1.0-4.8); ABS Monocytes 0.5 10^3/ul (0-0.8); ABS Neutrophils 4.9 10^3/ul (1.5-7.7); ABS Nucleated RBC 0 10^3/ul; Eosinophil % 1.6 %; Hematocrit 35 % (35-47); Hemoglobin 11.9 g/dl (12.0-16.0); Lymphocyte % 21.2 %; Mean Corpuscular HGB Conc 34 g/dl (31-36); Mean Corpuscular Hemoglobin 30 pg (27-31); Mean Corpuscular Volume 88 fL (80-97); Nucleated Red Blood Cells % 0.1; Platelet Count 162 10^3/ul (150-450); Red Blood Count 3.97 10^6/ul (4.00-5.40); Red Cell Distribution Width 14 % (10.5-15)
[2018-08-04 06:25] LABS: BUN/Creatinine Ratio 21.4 (8-20); Calcium 8.5 mg/dL (8.6-10.3); EGFR Non-African American 80.3 (>60); Magnesium 1.7 mg/dL (1.9-2.7); Potassium 3.9 mmol/L (3.5-5.0)
[2018-08-04] MEDS ORDERED: Magnesium Oxide TAB* 400 MG PO SCH (09:00)
[2018-08-04] MEDS ORDERED: NS 0.9% 100 ML* 100 ML ONE (09:15)
[2018-08-04] MEDS ORDERED: Magnesium Sulfate IV* 3 GM in NS 0.9% 100 ML* 100 ML IVPB ONE (09:30)
[2018-08-04] MEDS: Metoprolol Tartrate TAB* 25 MG PO SCH (09:36)
[2018-08-04] MEDS: Allopurinol TAB* 100 MG PO SCH (09:36)
[2018-08-04] MEDS: Atorvastatin* 20 MG TAB PO SCH (09:36)
[2018-08-04] MEDS: Omeprazole CAP (NF) 20 MG CAP.DR PO SCH (09:36)
[2018-08-04] MEDS: Citalopram TAB* 20 MG PO SCH (09:36)
[2018-08-04] MEDS: amLODIPine TAB* 5 MG PO SCH (09:36)
[2018-08-04] MEDS: Aspirin EC TAB* 81 MG TAB.EC PO SCH (09:36)
[2018-08-04] MEDS: Nitroglycerin 0.3 MG/HR PATCH* (7.5 MG) TRANSDERM SCH (09:39)
--- NOTE | 2018-08-04 10:39 | PN ---
Subjective Date of Service: 08/04/18 - CC: syncope, s/p pacer implant Interval History: I talked to the patient with her daughter Mie hawk. Mild incisional tenderness. No angina. No dizziness, has not yet walked. Medications Active Medications: Acetaminophen (Tylenol Tab*) 650 mg PO Q4H PRN PRN Reason: FEVER/PAIN Al Hydrox/Mg Hydrox/Simethicone (Maalox Plus*) 30 ml PO Q6H PRN PRN Reason: INDIGESTION Allopurinol (Zyloprim Tab*) 200 mg PO DAILY [facility] Last Admin: 08/04/18 09:36 Dose: 200 mg Amlodipine Besylate (Norvasc Tab*) 5 mg PO BID [facility] Last Admin: 08/04/18 09:36 Dose: Not Given Aspirin (Aspirin Ec Tab*) 81 mg PO DAILY [facility] Last Admin: 08/04/18 09:36 Dose: 81 mg Atorvastatin Calcium (Lipitor*) 20 mg PO DAILY [facility] Last Admin: 08/04/18 09:36 Dose: 20 mg Atropine Sulfate (Atropine Syringe*) 0.5 mg IV PUSH .SEE COMMENTS PRN PRN Reason: SEE COMMENTS Citalopram Hydrobromide (Celexa Tab*) 20 mg PO DAILY [facility] Last Admin: 08/04/18 09:36 Dose: 20 mg Heparin Sodium (Porcine) (Heparin Vial(*)) 5,000 units SUBCUT Q8HR [facility] Last Admin: 08/04/18 05:54 Dose: 5,000 units Clindamycin HCl/Dextrose (Cleocin 300 Mg Ivpemix(*)) 300 mg in 50 mls @ 200 mls /hr IV Q8H [facility] Stop: 08/05/18 12:00 Last Admin: 08/04/18 09:34 Dose: 200 mls/hr Magnesium Sulfate 3 gm/ Sodium (Chloride) 106 mls @ 53 mls/hr IVPB ONCE ONE Stop: 08/04/18 11:29 Magnesium Oxide (Magox 400 Tab*) 800 mg PO DAILY [facility] Last Admin: 08/04/18 09:36 Dose: 800 mg Metoprolol Tartrate (Lopressor Tab*) 25 mg PO BID [facility] Last Admin: 08/04/18 09:36 Dose: 25 mg Nitroglycerin (Nitroglycerin 7.5 Mg Patch*) 1 patch TRANSDERM DAILY [facility] Last Admin: 08/04/18 09:39 Dose: 1 patch Nitroglycerin (Nitroglycerin Tab 0.4 Mg*) 0.4 mg SL Q5M PRN PRN Reason: chest pain Omeprazole (Prilosec Cap*) 20 mg PO DAILY@0730 [facility] Last Admin: 08/04/18 09:36 Dose: 20 mg Pharmacy Profile Note (Nitro Patch/Oint Remove*) 1 note PATCH OFF BEDTIME [facility] Last Admin: 08/03/18 21:04 Dose: Not Given Trazodone HCl (Desyrel Tab*) 50 mg PO BEDTIME [facility] Last Admin: 08/03/18 21:05 Dose: 50 mg Objective Vital Signs: Temp Pulse Resp BP Pulse Ox 97.6 F 72 16 104/58 100 08/04/18 09:06 08/04/18 09:06 08/04/18 09:06 08/04/18 09:06 08/04/18 09:06 Oxygen Devices in Use Now: None, Nasal Cannula Appearance: older woman, lying in bed, no distress. Eyes: No Scleral Icterus, PERRLA Ears/Nose/Mouth/Throat: Mucous Membranes Moist Neck: NL Appearance and Movements; NL JVP Respiratory: Symmetrical Chest Expansion and Respiratory Effort, Clear to Auscultation Cardiovascular: NL Sounds; No Murmurs; No JVD, RRR - Incision left chest no hematoma, no ecchymosis, no signs of infection. Abdominal: NL Sounds; No Tenderness; No Distention, No Hepatosplenomegaly Skin: No Rash or Ulcers Neurological: Alert and Oriented x 3 Lines/Tubes/Other Access: Clean, Dry and Intact Peripheral IV Laboratory Results: 08/04/18 06:00 08/04/18 05:59 INR (Anticoag Therapy) 0.90 (0.77-1.02) 08/01/18 15:13 APTT 29.1 seconds (26.0-36.3) 08/01/18 15:13 Total Bilirubin 0.40 mg/dL (0.2-1.0) 08/01/18 15:12 AST 10 U/L (13-39) L 08/01/18 15:12 ALT 8 U/L (7-52) 08/01/18 15:12 Alkaline Phosphatase 68 U/L (34-104) 08/01/18 15:12 B-Natriuretic Peptide 92 pg/mL (<=100) 08/01/18 15:13 Total Protein 6.6 g/dL (6.4-8.9) 08/01/18 15:12 Albumin 4.1 g/dL (3.2-5.2) 08/01/18 15:12 Globulin 2.5 g/dL (2-4) 08/01/18 15:12 Albumin/Globulin Ratio 1.6 (1-3) 08/01/18 15:12 TSH 2.76 mcIU/mL (0.34-5.60) 08/02/18 06:53 08/01/18 08/01/18 08/02/18 15:12 21:11 00:40 Troponin I 0.02 0.01 0.02 08/02/18 08/02/18 15:15 20:10 Troponin I 0.01 0.01 Diagnostic Imaging: CXR's 08/03/18 and 08/04/18 show good lead placement, no pneumothorax. EKG Data: ECG's good sensing/pacing. Pacer interogation: P waves sensed 4.1 mg, lead impeadence 499 Ohms, A pacing threshold 0.5 V@ 0.4 ms, V lead impedence is 893 Ohms, R wave sising 16.8 mV, V pacing threshold 0.75V @ 0.4 ms Assessment/Plan 83 yo with CAD, presented with dx of possible pneumonia and had a witnessed syncopal event with long sinus pause. Cardizem and beta dc were held with improvement. Pt underwent an uneventful implant. Post implant CXR shows good lead placement and no pneumothorax. BP in low normal range on amlodipine and low dose metoprolol. Pacer -Send home with Clindamycin 150 mg TID x 3 days. -Wound check with Dr De La Torre needed next week. -Follow up with Dr Gamino for full pacer check and follow up 1 month needed. -Good function. CAD+Meds -Pt thinks she had some angina several days ago. -To balance angina and meds and BP, consider decrease in amlodipine to 5 mg hx only, keep NTG patch on days. -If able, double metoprolol to 50 mg BID (still much lower than on admission) .
[2018-08-04 12:08] VITALS: BP 134/63
--- NOTE | 2018-08-05 03:32 | OP ---
CC: Dr. Link Gamino.* DATE OF OPERATION: 08/03/18 - ROOM #440 DATE OF : 39 SURGEON: Cate De La Torre MD ANESTHESIA: MAC. PRE-OP DIAGNOSIS: POST-OP DIAGNOSIS: OPERATIVE PROCEDURE: Dual chamber pacemaker implantation. ESTIMATED BLOOD LOSS: Less than 5 cc. COMPLICATIONS: None. DESCRIPTION OF PROCEDURE: The patient is right-handed. The indications, details of the procedure, risks and benefits were discussed in depth in the presence of her daughter (the patient is Vincentian speaking). The left subclavian fossa was prepped and draped in the usual sterile fashion and time-out was called. Following this, 10 cc of radiopaque dye was injected in the left upper extremity outlining the left axillary and left subclavian vein. The patient then received a total of 4 mg of Versed and 50 mcg of fentanyl for sedation as well as 20 cc of 1% lidocaine for local anesthesia. After local anesthesia, using a 10 blade knife, a 2.5-cm incision was made in the left subclavian fossa using blunt and Bovie dissection. It was extended to the level of the pectoralis muscle. Additional lidocaine was infused inferiorly and using blunt dissection a small pocket was fashioned. Using a modified Seldinger technique, the left subclavian vein was cannulated. Using fluoroscopic guidance, a guidewire inserted into the right atrium. This procedure was repeated with a second guidewire. Using an introducer technique, the right ventricular lead was guided into the right ventricular apex and actively fixed in place. Pacing and sensing thresholds were good and improved with time. Using the second guidewire in a modified Seldinger technique, an atrial lead was guided into the right atrial appendage and actively faxed in place. Pacing and sensing thresholds were checked and found to be good and also improved over time. 10-volt pacing was performed and there was no diaphragmatic pacing. The leads were then sutured to the pocket using 0 silk suture. The pocket was then copiously irrigated with normal saline. Hemostasis was good. The leads were attached to the generator. The generator was placed in the pocket. The pocket was closed using 2 layers of resorbable suture, 2-0 followed by 4-0 followed by jeffrey and an external dressing. FINDINGS: The system is an MRI compatible [employer] System. The device is a [employer] W1DR01, serial number [id number] programmed overnight to DDD with a lower rate of 60 beats a minute. The atrial lead is a [employer] model 5076-45, serial number [id number]. The ventricular lead is a [employer] model 5076-52, serial number [id number]. P waves were sensed at 1.9 millivolts with an atrial lead impedance of 682 ohms and atrial pacing threshold of 1 volt at 0.5 milliseconds. The ventricular lead senses R-waves of 26 millivolts, ventricular lead impedance of 1029 ohms and a ventricular pacing threshold was 1.2 volts at 0.5 milliseconds. The patient was hemodynamically stable throughout the procedure and on transfer to floor. Again, no complications. [id number]/[facility] #: [id number] GUSTAVO
--- NOTE | 2018-08-05 03:40 | DS ---
CC: Dr. Norman; Dr. Farfan; Dr. Gamino; Dr. De La Torre; Dr. Palomares * DISCHARGE SUMMARY: DATE OF ADMISSION: 08/01/18 DATE OF DISCHARGE: 08/04/18 PRIMARY CARE PROVIDER: Dr. Norman. DISCHARGE DIAGNOSES: 1. Chest pain and shortness of breath likely due to chronic angina symptoms. 2. An episode of asystole and syncope due to that, status post pacemaker placement by Dr. De La Torre on 08/03/18. 3. Nonspecific patchy ground glass opacities in bilateral lungs with negative workup for pneumonia including negative CRP and negative procalcitonin. To follow up with Dr. Perry as outpatient as needed. SECONDARY DIAGNOSES: 1. History of extensive coronary artery disease, status post coronary artery bypass grafting; chronic exertional angina. 2. History of nephrolithiasis. 3. History of gout. 4. Hypomagnesemia, detected during the hospital stay. LABORATORY DATA AND STUDIES PERFORMED DURING THE HOSPITAL STAY: Included: On 08/04/18, sodium of 140, potassium 3.9, carbon dioxide 21, BUN 15, creatinine 0.7, magnesium of 1.7. The patient's troponin throughout her hospital stay has ranged from 0.01 to 0.02. TSH was 2.7 on 08/02/18. On 08/04/18, white blood cell count of 7.0, hemoglobin 11.9, hematocrit 35, and platelets of 162. Portable chest x-ray obtained post pacemaker placement on 08/03/18, impression: "No active cardiopulmonary disease is noted. No pneumothorax noted. Pacemaker leads are in place." CT angiogram of the chest obtained on 08/01/18, impression: "No pulmonary embolism. Patchy ground glass opacity in bilateral lungs. Etiology can be edema or infectious." Brain CT obtained on 08/02/18 after syncope and trauma to the head, impression: "No acute intracranial pathology." CONSULTATIONS DURING THE HOSPITAL STAY: Included Dr. Palomares and Dr. De La Torre. PROCEDURES PERFORMED: Pacemaker placement by Dr. De La Torre on 08/03/18. The surgical note had not been transcribed yet with details. HOSPITALIZATION COURSE: Chris Gonzalez is an 83-year-old female with history of significant coronary artery disease with chronic angina symptoms, who presented to the hospital complaining of chest pain and shortness of breath. Her chest pain was the usual angina problem but she noted that her heart rate was faster than usual and she came into the ED for evaluation. Here a CT angiogram was obtained to rule out PE and showed patchy ground glass opacities in bilateral lungs. At that point, the patient was placed on ceftriaxone and azithromycin and admitted to the hospital. On the day after her admission, she was noted to have sinus pauses and shortly thereafter, she had a syncopal episode in the bathroom after a period of asystole was noted on the telemonitor. She had another period of asystole shortly thereafter when she was still on the bathroom floor. She hit her head and she lost consciousness for a few seconds. After she regained consciousness, she was neurologically intact. She was immediately transferred to the intensive care unit for further monitoring. She was observed overnight with no further episodes of arrhythmia. At that point, it was noted that the patient's procalcitonin level and CRP were not elevated and her antibiotics were held. Further more, the patient's daughter stated that the patient had been seen by Dr. Perry from Pulmonology in the past for "lung scarring." The patient also had no symptoms of an infectious process. At this point, the patient was observed in the intensive care unit and the very next day, Dr. De La Torre placed the pacemaker that was on 08/03/18. The patient was observed post pacemaker placement on telemetry monitored bed and was ready to be discharged to home on 08/04/18. Please note that during the patient's post pacemaker placement, it was noted that patient's systolic pressures were in the lower 100s. At that point, her medications were modified to that the patient's diltiazem was stopped as well as irbesartan and losartan. The patient's metoprolol dose was lowered from 50 mg b.i.d. to 25 mg b.i.d. and Norvasc was lowered from 5 mg b.i.d. to 5 mg daily. The remaining medications were unchanged. The patient had no further symptoms of chest pain or shortness of breath during the hospital stay as she is being discharged to home with recommendation to follow up with Dr. De La Torre in approximately a week and Dr. Gamino in approximately a month. PHYSICAL EXAMINATION AT THE TIME OF DISCHARGE: Blood pressure of 104/58, heart rate of 72 and regular, respiratory rate 16, oxygen saturation 96% on room air, temperature 97.6. General: The patient is a very pleasant 83-year-old female, who is primarily Panamanian speaking, who is in no acute distress. Alert, awake, and oriented x3. HEENT: Head atraumatic, normocephalic. Eyes: Pupils equal, round, and reactive to light and accommodation. Oropharynx clear. Mucosa moist. Neck: Supple. No JVD. No bruits bilaterally. Cardiovascular: Regular rate and rhythm. No murmur. Respiratory: Clear to auscultation bilaterally. Abdomen: Soft, nontender. Bowel sounds present in all 4 quadrants. Extremities: There is trace bilateral ankle edema. Pulses +2 bilaterally. No clubbing or cyanosis. On evaluation of the skin, the patient has left subclavian incision stapled with no evidence of dehiscence or hematoma. MEDICATIONS AT DISCHARGE: 1. Allopurinol 200 mg daily. 2. Aspirin 81 mg daily. 3. Atorvastatin 20 mg daily. 4. Celexa 20 mg daily. 5. Nitroglycerin patch 0.3 mg per hour. 6. Metoprolol tartrate 25 mg b.i.d. 7. Omeprazole 20 mg daily. 8. Trazodone 50 mg at bedtime. 9. Norvasc 5 mg daily. 10. Clindamycin 150 mg b.i.d. for 3 days and stop. 11. Mag-Ox 400 mg daily for 10 days and stop. Please note that this is a short summary of the patient's hospitalization. Please refer to further medical records for details. TIME SPENT: Approximately 40 minutes was spent on the patient's discharge. [id number]/[facility] #: [id number] MTDD
== END 2018-08-04 16:40 | disposition home or self-care (01) | DRG 171 ==
LOC: ED 14:00 → MEDTELE 20:50 → OBSVTOIN 08-02 12:00 → ICU 08-02 12:57 → MEDTELE 08-03 19:55
PROVIDERS: ADMIT Pediatrics; ATTEND Internal Medicine
PROC: 02H63JZ Insertion of Pacemaker Lead into Right Atrium, Percutaneous Approach (ICD-10-PCS; 2018-08-03)
PROC: 02HK3JZ Insertion of Pacemaker Lead into Right Ventricle, Percutaneous Approach (ICD-10-PCS; 2018-08-03)
PROC: 4A023N7 Measurement of Cardiac Sampling and Pressure, Left Heart, Percutaneous Approach (ICD-10-PCS; 2018-08-03)
PROC: 0JH606Z Insertion of Pacemaker, Dual Chamber into Chest Subcutaneous Tissue and Fascia, Open Approach (ICD-10-PCS; principal; 2018-08-03 10:15)
DX: I49.5 Sick sinus syndrome (principal); I46.9 Cardiac arrest, cause unspecified; R55 Syncope and collapse; I25.119 Atherosclerotic heart disease of native coronary artery with unspecified angina pectoris; I10 Essential (primary) hypertension; E78.5 Hyperlipidemia, unspecified; M10.9 Gout, unspecified; F32.9 Major depressive disorder, single episode, unspecified; E11.9 Type 2 diabetes mellitus without complications; Z95.1 Presence of aortocoronary bypass graft; Z88.0 Allergy status to penicillin; Z87.442 Personal history of urinary calculi; I25.2 Old myocardial infarction; Z87.01 Personal history of pneumonia (recurrent); Z90.89 Acquired absence of other organs; Z98.49 Cataract extraction status, unspecified eye; Z82.3 Family history of stroke; Z79.82 Long term (current) use of aspirin; Z82.49 Family history of ischemic heart disease and other diseases of the circulatory system; E83.42 Hypomagnesemia
CPT/HCPCS: 33208; 36415; 70450; 71045; 71046; 71275; 80048; 80053; 81003; 83605; 83735; 83880; 84145; 84443; 84484; 85025; 85379; 85610; 85730; 86140; 87040; 87899; 93005; 99156; 99157; 99285; A9270-GY; C1785; C1898; G0378; J0456; J0696; J1644; J2250; J2310; J3010; J3475; Q9967

== ENCOUNTER 2018-09-07 07:59 | Observation (INO) | payer OTHER ==
[2018-09-07] MEDS ORDERED: Clindamycin 600 MG IVPREMIX(* 600 MG/50 ML SDV IV ONE (09:00)
[2018-09-07] MEDS ORDERED: Lidocaine 1% INJ* 10 MG/ML 30 ML SDV ONE (09:29)
[2018-09-07] MEDS ORDERED: Midazolam* 1 MG/ML 5 ML VIAL (5 MG) ONE (09:35)
[2018-09-07] MEDS ORDERED: fentaNYL* 50 MCG/ML 2 ML VIAL (100 MCG VIAL) ONE (09:35)
[2018-09-07] MEDS ORDERED: Nitroglycerin TAB 0.4 MG* 0.4 MG TAB SL PRN (11:18)
[2018-09-07] MEDS ORDERED: traZODone TAB* 50 MG TAB PO PRN (11:18)
[2018-09-07] MEDS: Clindamycin 300 MG IVPREMIX(* 300 MG/50 ML SDV IV SCH ×3 (17:23→20:20)
[2018-09-07] MEDS: Metoprolol Tartrate TAB* 25 MG PO SCH (20:28)
[2018-09-07] MEDS: Allopurinol TAB* 100 MG PO SCH (20:28)
[2018-09-08] MEDS: Clindamycin 300 MG IVPREMIX(* 300 MG/50 ML SDV IV SCH (03:35)
[2018-09-08] MEDS: Metoprolol Tartrate TAB* 25 MG PO SCH (08:50)
[2018-09-08] MEDS: Allopurinol TAB* 100 MG PO SCH (08:51)
[2018-09-08 08:54] VITALS: BP 128/49
[2018-09-08] MEDS ORDERED: Pantoprazole TAB * 40 MG TAB PO SCH (09:00)
[2018-09-08] MEDS ORDERED: amLODIPine TAB* 5 MG PO SCH (09:00)
[2018-09-08] MEDS ORDERED: Aspirin EC TAB* 81 MG TAB.EC PO SCH (09:00)
[2018-09-08] MEDS ORDERED: Citalopram TAB* 20 MG PO SCH (09:00)
[2018-09-08] MEDS ORDERED: Nitroglycerin 0.3 MG/HR PATCH* (7.5 MG) TRANSDERM SCH (09:00)
[2018-09-08] MEDS ORDERED: Magnesium Oxide TAB* 400 MG PO SCH (09:00)
[2018-09-08] MEDS ORDERED: Atorvastatin* 20 MG TAB PO SCH (09:00)
--- NOTE | 2018-09-08 15:28 | DS ---
CC: Dr. Gamino; Dr. Norman * DISCHARGE SUMMARY: DATE OF ADMISSION: 09/07/18 DATE OF DISCHARGE: 09/08/18 HISTORY OF PRESENT ILLNESS AND HOSPITAL COURSE: Mrs. Gonzalez is an 83-year- old woman who underwent a pacemaker implantation in July 2018 for sick sinus syndrome and syncope. The procedure was unremarkable, but on her pacer check, 09/01/18, it was found that although the ventricular lead had good sensing of her R- waves, it would not pace. The patient was admitted 09/07/18 for ventricular lead revision. Outpatient chest x-ray has shown the patient appeared in good position and on fluoro in the operating room, it again appeared in good position but did not capture, R-waves were sensed at 12 millivolts. See operative report, but the lead was repositioned with excellent pacing and sensing thresholds. The patient was hemodynamically stable throughout the procedure and on transfer to the floor. Postoperative chest x-rays the day of the surgery and today, the day after, showed good lead position. Her outpatient x-ray report had described possible congestive heart failure and mild interstitial edema remains documented. PAST MEDICAL HISTORY: The patient has a past medical history of: 1. Sick sinus syndrome, July 2018, status post dual chamber pacer and lead revision as above. 2. Syncope from sinus pauses. 3. Coronary artery disease, [place] in 2012. Bypass surgery in 2009. 4. Pulmonary disease with chronic scarring. 5. Hypertension. 6. Diastolic dysfunction with hypertensive heart disease. 7. Diabetes type 2. PAST SURGICAL HISTORY: Includes: 1. CABG, 12/27/09. 2. Cataract surgery, 2009. 3. Carpal tunnel release, 2009. PHYSICAL EXAMINATION: On exam on the day discharge, the patient's blood pressure is 128/49, pulse of 73 (sinus rhythm). She is 5 feet 4 inches, weighs 170 pounds, with a BMI of 29. General Appearance: Moderately overweight older woman, smiling, speaks [place], was unable to communicate today, but yesterday denied shortness of breath, chest pain, pressure, heaviness, and she has a thumbs up that she is feeling well. She was able to express to me that she had some tenderness at the incision site. Her appetite has been good. HEENT: Mucous membranes moist. Neck: Thick from obesity, but no appreciable thyromegaly or increased JVP. Breath sounds did have some crackles on the bases that do not change with coughing. Coronary: S1, S2, regular. Incision on the left subclavian fossa is free of any evidence of infection. It is mildly tender. No ecchymosis and no hematoma. STUDIES: 1. ECG with magnet shows dual chamber pacing at magnet rate with 1:1 ventricular capture and atrial capture. 2. Chest x-rays show good lead placement and no evidence of pneumothorax and possible interstitial edema. LABORATORY DATA: BNP is pending. Pacemaker interrogation today showed excellent sensing and pacing thresholds. CONCLUSION: Chris Gonzalez is an 83-year-old woman with sick sinus syndrome , syncope, about a month out from dual chamber pacer implantation whose ventricular lead had a micro dislodgement and was unable to pace despite excellent sensing. She has undergone ventricular lead revision with good result. I am not appreciating she is volume overloaded, so we will send her home on her current medications, although BNP is pending. MEDICATIONS AT DISCHARGE: 1. Allopurinol 100 mg b.i.d. 2. Amlodipine 5 mg b.i.d. 3. Aspirin 81 mg a day. 4. Atorvastatin 20 mg a day. 5. Citalopram 20 mg a day. 6. Magnesium oxide 400 mg a day. 7. Metoprolol 25 mg b.i.d. 8. Nitroglycerin patch 0.3 mg daily plus 0.4 mg daily. 9. Omeprazole 20 mg a day. 10. Trazodone 50 mg q.h.s. 11. Clindamycin 300 mg t.i.d. for 4 days. She will follow up for a wound check next week and will get an early pacer check as well this time. [id number]/[facility] #: [id number] MTDD
[2018-09-08] MEDS ORDERED: Nitro Patch/OINT Remove TOPICAL SCH (21:00)
--- NOTE | 2018-09-10 12:38 | OP ---
CC: Dr. Link Gamino * DATE OF OPERATION: 09/07/18 - ROOM #450 DATE OF : 39 SURGEON: Cate De La Torre MD ANESTHESIA: MAC. PRE-OP DIAGNOSIS: Microdislodgement of the ventricular lead (good sensing, no pacing). POST-OP DIAGNOSIS: Microdislodgement of the ventricular lead (good sensing, no pacing). OPERATIVE PROCEDURE: Ventricular lead dislodgment. ESTIMATED BLOOD LOSS: Less than 1 cc. COMPLICATIONS: None. The indications, risks and benefits of the procedure had been discussed with the patient at the presence of her daughter. Her daughter acting as a public health and both are amenable to proceeding. DESCRIPTION OF PROCEDURE: The existing device is in the left subclavian fossa. This area was prepped and draped in the usual sterile fashion. A timeout was called. Following this, the patient received local anesthesia in addition to Versed and fentanyl and following this, using a #10 blade knife, an incision was made in existing incision and using Bovie cautery as well as blunt dissection. The existing incision was extended to the level of the device taking great care to avoid injuring leads. When the device was reached, the fibrous material covering this was snipped and taken care again to avoid the leads, it was extended medially and laterally and the device was explanted. Atrial lead and ventricular lead pacing and sensing thresholds were checked with the following results: The atrial lead impedance was 437 ohms with P- waves measured at 4.1 mV and the pacing threshold of 0.5 was found to be good. The ventricular lead impedance was 684 ohms with R waves sensed at 12 mV and unable to capture. The ventricular lead was then unsecured. The sutures on the collar were removed , taking care not to injure the lead. The collar was pulled back, a straight stylet was inserted and the active fixation was retracted and the lead was easily removed from the apex of the right ventricle. It took 3 tries to get the lead into a good place with both good sensing and good pacing thresholds. The lead was then secured to the pocket taking care that adequate flap was placed. Pacing and sensing thresholds were checked for both leads, found to be good. The pocket was copiously irrigated. An antibiotic pouch was placed in the pocket and the device was placed in the pocket. We again checked thresholds with the device in the pocket and they were good and the incision was then closed using 2 layers of absorbable suture, 2-0 followed by 4-0, followed by jeffrey and an external dressing. FINDINGS: The system is a ID Quantique MRI compatible system. The device is a [employer]tronic F[employer] Farm XT DR MRI compatible W1DR1, serial number [id number]. The atrial lead is a Medtronic model 5076, serial number [id number]. The ventricular lead is a Medtronic model 5076, serial number [id number]. The post revision findings: The atrial lead impedance was 437 ohms , atrial pacing threshold was 0.625 V at 0.4 ms with P-wave sense of 4.1 mV. The ventricular lead impedance was 931 ohms with a ventricular pacing threshold of 0.5 V at 0.4 ms with P-wave sense at 12 mV. The patient was hemodynamically stable throughout the procedure and on transfer to the floor, there were no complications. [id number]/[facility] #: [id number] GUSTAVO
== END 2018-09-08 12:06 | disposition home or self-care (01) ==
LOC: CHICATH 07:59 → MEDTELE 11:46 → INTOOBSV 11:46
PROVIDERS: ADMIT Specialist; ATTEND Specialist
DX: I49.5 Sick sinus syndrome (principal); Z95.0 Presence of cardiac pacemaker; R55 Syncope and collapse; I46.9 Cardiac arrest, cause unspecified; I25.119 Atherosclerotic heart disease of native coronary artery with unspecified angina pectoris; I25.10 Atherosclerotic heart disease of native coronary artery without angina pectoris; I25.2 Old myocardial infarction; J44.9 Chronic obstructive pulmonary disease, unspecified; I11.0 Hypertensive heart disease with heart failure; I50.30 Unspecified diastolic (congestive) heart failure; E11.9 Type 2 diabetes mellitus without complications; R60.9 Edema, unspecified
CPT/HCPCS: 33215; 36415; 71045; 71046; 83735; 93005; 96374; 96375; 96376; 99156; 99157; A9270-GY; C1785; G0378; J2250; J3010

== ENCOUNTER 2018-10-07 16:16 | Emergency (ER) | payer OTHER ==
--- NOTE | 2018-10-07 16:27 | ED ---
HPI Cardiac - HPI Summary HPI Summary: Patient is a 83 y/o F presenting to ED via ambulance with complaints of increased heart rate and chest pain that she characterizes as a pressure. Patient only speaks Senegalese, soft hat binder was used to gather HPI. Sx are reported to have onset yesterday in the morning and have progressively worsened. She denies dizziness, SOB, N/V. PMHx of pacemaker. EMS reports rate of 110 BPM. On triage, pain is denied, nothing is noted to aggravate/alleviate Sx. Home medications and allergies are reviewed. - History of Current Complaint Stated Complaint: HIGH HEART RATE Time Seen by Provider: 10/07/18 16:20 Hx Obtained From: Patient, Electrophysiology Technologist Onset/Duration: Started Days Ago - yesterday, Still Present, Worse Since Timing: Constant, Lasting Days - yesterday Pain Intensity: 0 Pain Scale Used: 0-10 Numeric Character: Pressure/Squeezing Aggravating Factor(s): Nothing Alleviating Factor(s): Nothing Associated Signs and Symptoms: Positive: Chest Pain, Palpitations. Negative: Dizziness, Shortness of Breath, Nausea, Vomiting - Additional Pertinent History Primary Care Physician: AZUL - Allergy/Home Medications Allergies/Adverse Reactions: Allergies Allergy/AdvReac Type Severity Reaction Status Date / Time Penicillins Allergy Unknown Verified 08/01/18 14:22 Reaction Details Home Medications: Home Medications Aspirin TAB* [Aspirin 325 MG TAB*] 325 mg PO DAILY 10/07/18 [History Confirmed 10/07/18] Citalopram TAB* [CeleXA TAB*] 20 mg PO DAILY 10/07/18 [History Confirmed ] Irbesartan (NF) [Avapro (NF)] 75 mg PO DAILY 10/07/18 [History Confirmed ] Nitroglycerin [Nitro-Dur] 0.3 mg TOPICAL DAILY 10/07/18 [History Confirmed 10/07] traZODone TAB* [Desyrel TAB*] 50 mg PO BEDTIME 10/07/18 [History Confirmed 10/07] PMH/Surg Hx/FS Hx/Imm Hx Endocrine/Hematology History: Denies: Hx Diabetes Cardiovascular History: Reports: Hx Angina, Hx Coronary Artery Disease, Hx Hypercholesterolemia, Hx Hypertension, Hx Myocardial Infarction, Hx Pacemaker/ ICD - 08/16/18 Respiratory History: Reports: Hx Pneumonia History: Reports: Hx Kidney Stones Denies: Hx Renal Disease Musculoskeletal History: Reports: Hx Gout Sensory History: Reports: Hx Cataracts - hx cataract (removal), Hx Contacts or Glasses, Hx Hearing Aid, Hx Hearing Problem Denies: Hx Eye Injury, Hx Eye Prosthesis, Hx Glaucoma, Hx Legally Blind, Hx Macular Degeneration, Hx Vision Problem Comment Only: Hx Deafness - Yes, Rt ear Opthamlomology History: Reports: Hx Cataracts - hx cataract (removal), Hx Contacts or Glasses Denies: Hx Eye Injury, Hx Eye Prosthesis, Hx Glaucoma, Hx Legally Blind, Hx Macular Degeneration, Hx Vision Problem Neurological History: Denies: Hx Dementia, Hx Developmental Delay, Hx Headaches, Hx Migraine, Hx Nerve Disease, Hx Seizures, Hx Spinal Cord Injury, Hx Transient Ischemic Attacks (TIA) Psychiatric History: Reports: Hx Depression Denies: Hx Anxiety, Hx Attention Deficit Hyperactivity Disorder - Surgical History Surgery Procedure, Year, and Place: tonsellectomy appendectomy, removal kidney stone (2008) Infectious Disease History: Denies: Hx Clostridium Difficile, Hx Hepatitis, Hx of Known/Suspected MRSA, Hx Shingles, Hx Tuberculosis, Hx Known/Suspected VRE, Hx Known/Suspected VRSA - Family History Known Family History: Positive: Unknown - Pt reports parents young and is unsure of FHx - Social History Alcohol Use: None Substance Use Type: Reports: None Hx Tobacco Use: No Smoking Status (MU): Never Smoked Tobacco Have You Smoked in the Last Year: No Review of Systems Positive: Palpitations, Chest Pain Negative: Shortness Of Breath Negative: Vomiting, Nausea Neurological: Other - NEGATIVE - DIZZINESS All Other Systems Reviewed And Are Negative: Yes Physical Exam - Summary Physical Exam Summary: VITAL SIGNS: Reviewed. GENERAL: Patient is a well-developed and nourished female who is lying comfortable in the stretcher. Patient is not in any acute respiratory distress. HEAD AND FACE: No signs of trauma. No ecchymosis, hematomas or skull depressions. No sinus tenderness. EYES: PERRLA, EOMI x 2, No injected conjunctiva, no nystagmus. EARS: Hearing grossly intact. Ear canals and tympanic membranes are within normal limits. MOUTH: Oropharynx within normal limits. NECK: Supple, trachea is midline, no adenopathy, no JVD, no carotid bruit, no c- spine tenderness, neck with full ROM. CHEST: Symmetric, no tenderness at palpation LUNGS: Clear to auscultation bilaterally. No wheezing or crackles. CVS: Irregular rate and rhythm, S1 and S2 present, no murmurs or gallops appreciated. ABDOMEN: Soft, non-tender. No signs of distention. No rebound no guarding, and no masses palpated. Bowel sounds are normal. EXTREMITIES: FROM in all major joints, no edema, no cyanosis or clubbing. NEURO: Alert and oriented x 3. No acute neurological deficits. Speech is normal and follows commands. SKIN: Dry and warm Triage Information Reviewed: Yes Vital Signs On Initial Exam: Initial Vitals Temp Pulse Resp BP Pulse Ox 97.7 F 100 12 156/77 97 10/07/18 16:27 10/07/18 16:27 10/07/18 16:27 10/07/18 16:27 10/07/18 16:27 Vital Signs Reviewed: Yes Diagnostics - Laboratory Result Diagrams: 10/07/18 17:31 10/07/18 17:31 Lab Statement: Any lab studies that have been ordered have been reviewed, and results considered in the medical decision making process. - Radiology CXR Radiology Interpretation Completed By: Radiologist Summary of Radiographic Findings: IMPRESSION: No active cardiopulmonary disease is noted. Patient is status post changed. sternal thoracotomy. Pacemaker leads are in place. No changes noted since September 08, 2017. This report was reviewed by ED physician. - EKG 1650 Cardiac Rate: NL - rate of 90 BPM EKG Rhythm: Sinus Rhythm Summary of EKG Findings: EKG showed sinus rhythm with rate of 90 BPM, no ST elevation. Re-Evaluation - Re-Evaluation First Eval Re-Evaluation Time: 21:00 Comment: I discussed all the findings and test results with the patient. Patient was instructed to return to the emergency room immediately if any of the symptoms return or worsens. Plan of care was discussed with the patient and understands and agrees. All questions were answered at patient satisfaction. There were no further complaints or concerns. Lung exam before discharge: CTA B/ L. Good air exchange. No wheezing or crackles heard. CVS: S1 and S2 present. No murmurs appreciated. Patient is alert and oriented x 3. Patient is hemodynamically stable. Patient will be discharged home with follow up PCP in the next 2-3 days. Disposition - Course Assessment/Plan: Patient is a 83 y/o F presenting to ED via ambulance with complaints of increased heart rate and chest pain that she characterizes as a pressure. Patient only speaks Senegalese, soft hat binder was used to gather HPI. Sx are reported to have onset yesterday in the morning and have progressively worsened. She denies dizziness, SOB, N/V. PMHx of pacemaker. EMS reports rate of 110 BPM. Blood work without any significant abnormality. Chest x-ray impression: No active Pulmonary disease is noted. Patient is status post change external thoracotomy. Pacemaker leads in place. 2 troponins 4 hours apart as 0.01. Therefore negative. The patient seems to be stable and she has no other complaints. Therefore the patient will be discharged home with follow- up with PCP. I discussed all the findings and test results with the patient. Patient was instructed to return to the emergency room immediately if any of the symptoms return or worsens. Plan of care was discussed with the patient and understands and agrees. All questions were answered at patient satisfaction. There were no further complaints or concerns. Lung exam before discharge: CTA B/ L. Good air exchange. No wheezing or crackles heard. CVS: S1 and S2 present. No murmurs appreciated. Patient is alert and oriented x 3. Patient is hemodynamically stable. Patient will be discharged home with follow up PCP in the next 2-3 days - Differential Dx - Cardiopulmonary Differential Diagnoses - Cardiopulmonary: CAD, CHF, Chest Wall Pain, Pleurisy - Diagnoses Provider Diagnoses: Atypical chest pain Discharge - Sign-Out/Discharge Documenting (check all that apply): Patient Departure - discharge Patient Received Moderate/Deep Sedation with Procedure: No - NO PROCEDURES DONE - Discharge Plan Condition: Stable Disposition: HOME Patient Education Materials: Chest Pain (ED) Referrals: Jess Norman MD [Primary Care Provider] - 3 Days Additional Instructions: RETURN TO EMERGENCY DEPARTMENT FOR ANY NEW OR WORSENING SYMPTOMS. FOLLOW UP WITH PRIMARY CARE PHYSICIAN WITHIN THREE DAYS. - Billing Disposition and Condition Condition: STABLE Disposition: Home - Attestation Statements Document Initiated by Scribe: Yes Documenting Scribe: KAMI DIAZ Provider For Whom Scribe is Documenting (Include Credential): SYED BROWN MD Scribe Attestation: IKAMI , scribed for SYED BROWN MD on 10/08/18 at 1115. Scribe Documentation Reviewed: Yes Provider Attestation: The documentation as recorded by the scribe, KAMI DIAZ accurately reflects the service I personally performed and the decisions made by me, SYED BROWN MD Status of Scribe Document: Viewed
--- OUTSIDE RECORDS SUMMARY | 2018-10-07 16:53 | XMS REPORT | Continuity of Care Document ---
:1935 External Reference #:[id number] Author Name Nakia Cordova Care Team Providers Name Role Phone Leonidas Norman MD Primary Care Physician Unavailable Payers Type Date Identification Numbers Payment Provider Subscriber Policy Number: [id number] Juan Gonzalez Group Number: [id number] [address] PayID: [id number] [place] [address] Advance Directives Description No Information Available Problems Date Description Provider Status Onset: 12/11/2013 Chest pain [facility] Schedule Active Onset: 12/11/2013 Coronary arteriosclerosis [facility] Schedule Active Onset: 12/11/2013 Mitral valve disorder [facility] Schedule Active Onset: 01/02/2014 Pure hypercholesterolemia RODDY Phelan Active Onset: 01/02/2014 Type 2 diabetes mellitus RODDY Phelan Active Onset: 08/01/2018 Pneumonia Zarina Everett NP Active Onset: 08/01/2018 Hyperlipidemia Zarina Everett NP Active Onset: 08/03/2018 Cardiac arrest Anya Beebe M.D. Active Onset: 08/03/2018 Angina pectoris Anya Beebe M.D. Active Onset: 08/04/2018 Dyspnea Anya Beebe M.D. Active Onset: 08/04/2018 Syncope and collapse Anya Beebe M.D. Active Onset: 08/04/2018 Other nonspecific abnormal finding of Anya Beebe M.D. 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 Tobacco Use Start: Unknown Never Smoked Cigarettes ETOH Use Denies alcohol use Tobacco Use Start: Unknown Patient has never smoked Recreational Drug Use Denies Drug Use Smoking Status Reviewed: 09/13/18 Patient has never smoked Exercise Type/Frequency Exercises regularly walks daily, depends on weather Allergies, Adverse Reactions, Alerts Date Description Reaction Status Severity Comments 06/04/2010 Penicillin has been ineffective in past but no Active rash or other allergic n Medications Medication Date Status Form Strength Qnty SIG Indications Ordering Provider Magnesium-Oxide 08/09/ Active Tablets 400(241.3 1 by mouth Unknown 2018 mg) mg every day Metoprolol 08/09/ Active Tablets 25mg 1 by mouth Unknown Tartrate 2018 twice a day Citalopram 08/09/ Active Tablets 20mg 1 by mouth Unknown Hydrobromide 2018 every day Nitro-Dur 11/05/ Active Patches 0.3mg/HR 60uni apply one I25.119 Link 2017 24HR ts patch daily Nawaf Gamino, for 12 M.D. hours and remove at night. Amlodipine 09/28/ Active Tablets 5mg 180ta 1 by mouth Link Besylate 2018 bs once a day Nawaf Gamino M.D. Atorvastatin 01/02/ Active Tablets 20mg take 1 Other Calcium 2015 tablet at Ordering bedtime Provider Nitrostat / Active Tablets 0.4mg 30tab one sl Link 0000 Sub s q5min up to Nawaf Gamino, 3 doses as M.D. needed Aspirin / Active 81mg 1 po qd Unknown 0000 Allopurinol / Active Tablets 100mg 90tab 1 by mouth Other 0000 s 2 times a Ordering day Provider Trazodone HCL / Active Tablets 50mg 30tab 1 tablet at Other 0000 s bedtime as Ordering needed Provider Irbesartan 09/28/ Hx Tablets 75mg 90tab 1 tab by Link 2018 - s mouth every Nawaf Gamino, 08/09/ day M.D. 2018 Nitroglycerin 09/22/ Hx Patches 0.4mg/HR 30uni place one Link 2017 - 24HR ts patch in Nawaf Gamino, 09/22/ the morning M.DUmair 2016 and remove at night after 12 hours Metoprolol 03/25/ Hx Tablets 50mg 360ta 2 tablets Link Tartrate 2015 - bs by mouth Nawaf Gamino, 08/09/ twice a day M.D. 2017 Diltiazem HCL 01/03/ Hx Caps ER 120mg 90cap 1 by mouth I25.118 Link ER 2014 - 24HR s every day Nawaf Gamino, M.D. 2017 Lopressor 01/03/ Hx Tablets 100mg 100ta 1/2 by Link 2014 - bs mouth twice Nawaf Gamino, 03/25/ a day M.D. 2015 Nitroglycerin 01/02/ Hx Patches 0.2mg/HR 90uni apply one Link 2013 - 24HR ts to chest Nawaf Gamino, 11/05/ wall daily M.D. 2017 in the morning and take off in at night Nitroglycerin 11/29/ Hx Patches 0.1mg/HR 30uni 1 patch Link 2013 24HR ts applied to Nawaf Gamino, 01/02/ chest wall M.D. 2013 daily in the am and take off in pm Pantoprazole 11/29/ Hx Tablets DR 40mg 30tab 1 by mouth Link Sodium 2013 - s every day Nawaf Gamino, M.D. 2014 Antibiotic 06/04/ Hx prescribed Amita 05/30 [place], unknown for D.O. kidney stone last dose today 06/04 Nitro-Dur 11/14/ Hx Patches 0.2mg/HR 30uni 1 patch qd Link 2009 - 24HR ts Nawaf Gamino, M.D. 2009 on in the am, off in the pm Losartan / Hx Tablets 100mg 90tab 1/2 po bid Unknown Potassium 0000 - s 2017 Amlodipine / Hx Tablets 10mg 30tab 1 po qd Unknown Besylate 0000 - s 2017 Metoprolol / Hx Tablets 100mg 60tab 1 po bid Unknown Tartrate 0000 - s 2014 Simvastatin 00/00/ Hx Tablets 20mg 90tab 1 po qhs Unknown 0000 s Ibuprofen /00/ Hx Tablets 800mg 90tab po tid prn Unknown 0000 s Percocet / Hx Tablets 5-325mg 40tab 1-2 po q4h Unknown 0000 s prn need to clarify with pts daughter Atorvastatin 00/ Hx Tablets 10mg 1 by mouth Other Calcium 0000 - every day Ordering 01/03/ Provider 2014 Colc[place] 00/ Hx Tablets 0.6mg 1 by mouth Other 0000 - every day Ordering Provider 2014 Losartan 00/ Hx Tablets 100mg 90tab 1 by mouth Other Potassium 0000 - s every day Ordering Provider 2017 Lopressor / Hx Tablets 100mg 1 and 1/2 Unknown 0000 - PO bid 2014 Omeprazole / Hx Capsules 20mg 1 by mouth Unknown 0000 - DR every day 2017 Immunizations Description No Information Available Vital Signs Date Vital Result Comment 09/13/2018 8:56am Height 66 inches 5'6" Weight 170.00 lb with shoes Heart Rate 60 /min BP Systolic Sitting 114 mmHg lue reg cuff BP Diastolic Sitting 58 mmHg lue reg cuff BP Systolic Standing 120 mmHg lue reg cuff BP Diastolic Standing 58 mmHg lue reg cuff Respiratory Rate 14 /min BMI (Body Mass Index) 27.4 kg/m2 Ejection Fraction 55-60% echo. 10/01/17 09/01/2018 3:45pm Height 66 inches 5'6" Weight 174.00 lb Heart Rate 74 /min BP Systolic Sitting 120 mmHg Lue reg cuff BP Diastolic Sitting 58 mmHg Lue reg cuff BMI (Body Mass Index) 28.1 kg/m2 Ejection Fraction 55-60% Echo 10/01/17 08/10/2018 9:09am Height 66 inches 5'6" Weight 171.38 lb with shoes, sweater Heart Rate 84 /min rt radial, regular BP Systolic Sitting 135 mmHg rt arm BP Diastolic Sitting 68 mmHg rt arm BMI (Body Mass Index) 27.7 kg/m2 Ejection Fraction 55-60% echo 10/01/17 01/11/2018 12:57pm Height 66 inches 5'6" Weight 169.12 lb Heart Rate 92 /min BP Systolic Sitting 130 mmHg LA, reg BP Diastolic Sitting 72 mmHg LA, reg BMI (Body Mass Index) 27.3 kg/m2 Ejection Fraction 55%-60% 10/01/2017 11/05/2017 8:03am Height 66 inches 5'6" Weight 169.00 lb with shoes Heart Rate 82 /min BP Systolic Sitting 128 mmHg Rue reg cuff BP Diastolic Sitting 70 mmHg Rue reg cuff Respiratory Rate 16 /min BMI (Body Mass Index) 27.3 kg/m2 Ejection Fraction 55-60% 10/01/2017-echo 09/28/2017 8:13am Height 66 inches 5'6" Weight 172.75 lb with shoes Heart Rate 70 /min BP Systolic Sitting 136 mmHg LA Reg Cuff BP Diastolic Sitting 80 mmHg LA Reg Cuff BMI (Body Mass Index) 27.9 kg/m2 Ejection Fraction 60% stress test 09/17/17 08/19/2017 3:43pm Height 66 inches 5'6" Weight 172.00 lb w/shoes Heart Rate 80 /min BP Systolic Sitting 154 mmHg LA reg cuff BP Diastolic Sitting 84 mmHg LA reg cuff BMI (Body Mass Index) 27.8 kg/m2 Ejection Fraction 50-55% Echo 03/04/16 09/22/2016 12:46pm Height 66 inches 5'6" Weight 175.00 lb with shoes Heart Rate 88 /min BP Systolic Sitting 146 mmHg Lue lg cuff BP Diastolic Sitting 80 mmHg Lue lg cuff BP Systolic Standing 124 mmHg LUe lg cuff "dizzy" BP Diastolic Standing 80 mmHg LUe lg cuff "dizzy" Respiratory Rate 17 /min BMI (Body Mass Index) 28.2 kg/m2 03/25/2016 8:28am Height 66 inches 5'6" Weight 172.75 lb w/o shoes Heart Rate 88 /min BP Systolic Sitting 148 mmHg LA reg cuff BP Diastolic Sitting 72 mmHg LA reg cuff BMI (Body Mass Index) 27.9 kg/m2 Ejection Fraction 50% - 55% echo 03/04/16 01/15/2016 9:03am Height 66 inches 5'6" Weight 173.00 lb Heart Rate 76 /min BP Systolic Sitting 122 mmHg LA, regular BP Diastolic Sitting 76 mmHg LA, regular BMI (Body Mass Index) 27.9 kg/m2 Ejection Fraction 60-65% echo 02/19/15 03/07/2015 9:01am Height 66 inches 5'6" Weight 179.25 lb w/ shoes Heart Rate 74 /min BP Systolic Sitting 130 mmHg LA, reg BP Diastolic Sitting 72 mmHg LA, reg BMI (Body Mass Index) 28.9 kg/m2 Ejection Fraction 60-65% 02/19/15 ECHO 01/03/2015 11:35am Height 66 inches 5'6" Weight 184.00 lb Heart Rate 80 /min BP Systolic 158 mmHg LA reg BP Diastolic 82 mmHg LA reg BP Systolic Sitting 128 mmHg la repeat BP Diastolic Sitting 71 mmHg la repeat BMI (Body Mass Index) 29.7 kg/m2 Ejection Fraction 45-50% 12/11/13 ECHO 01/02/2014 8:35am Height 66 inches 5'6" Weight 185.00 lb Heart Rate 68 /min BP Systolic Sitting 130 mmHg BP Diastolic Sitting 75 mmHg BMI (Body Mass Index) 29.9 kg/m2 11/29/2013 8:18am Height 66 inches 5'6" Weight 179.00 lb Heart Rate 70 /min BP Systolic Sitting 126 mmHg BP Diastolic Sitting 66 mmHg Respiratory Rate 16 /min BMI (Body Mass Index) 28.9 kg/m2 12/11/2010 10:02am Height 66 inches 5'6" Weight 180.00 lb Heart Rate 80 /min BP Systolic 134 mmHg BP Diastolic 78 mmHg BMI (Body Mass Index) 29.0 kg/m2 06/04/2010 10:24am Weight 181.00 lb Heart Rate 66 /min BP Systolic Sitting 150 mmHg left arm, right arm 142/84 BP Diastolic Sitting 86 mmHg left arm, right arm 142/84 BP Systolic Standing 144 mmHg right arm BP Diastolic Standing 88 mmHg right arm Results Test Date Facility Test Result H/L Range Note Laboratory test 09/07/2018 [facility] Magnesium 1.9 mg/dL N 1.9-2.[address] [place] [address] [phone] Lipid Panel - J[facility] 09/28/2017 [facility] Creatine 19 U/L N 10- [address] Kinase(CK) [place] [address] [phone] Comp Metabolic 09/28/2017 [facility] Sodium 140 mmol/L N 133- [address] [place] [address] [phone] Potassium 4.9 mmol/L N 3.5-5.0 Chloride 108 mmol/L N 101-111 Co2 Carbon Dioxide 27 mmol/L N 22-32 Anion Gap 5 mmol/L N 2-11 Glucose 103 mg/dL High 70-100 Blood Urea Nitrogen 20 mg/dL N 6-24 Creatinine 0.84 mg/dL N 0.51-0.95 BUN/Creatinine Ratio 23.8 High 8-20 Calcium 9.1 mg/dL N 8.6-10.3 Total Protein 5.9 g/dL Low 6.4-8.9 Albumin 3.8 g/dL N 3.2-5.2 Globulin 2.1 g/dL N 2-4 Albumin/Globulin Ratio 1.8 N 1-3 Total Bilirubin 0.50 mg/dL N 0.2-1.0 Alkaline Phosphatase 57 U/L N 34-104 Alt 7 U/L N 7-52 Ast 8 U/L Low 13-39 Egfr Non- 65.2 >60 Egfr 83.9 >60 2 Lipid Profile 09/28/2017 [facility] Triglycerides 120 mg/dL 3 (Trig/Chol/HDL) [address] [place] [address] [phone] Cholesterol 126 mg/dL 4 HDL Cholesterol 42.7 mg/dL 5 LDL Cholesterol 59 mg/dL 6 Laboratory test 09/28/2017 [facility] Troponin-I 0.01 ng/mL < 0.04 [address] (TnI) [place] [address] [phone] CBC Auto Diff 09/28/2017 [facility] White Blood 6.0 N 3.5- 10.[address] Count 10^3/[place] [address] [phone] Red Blood Count 4.70 10^6/uL N 4.0-5.4 Hemoglobin 14.0 g/dL N 12.0-16.0 Hematocrit 42 % N 35-47 Mean Corpuscular Volume 89 fL N 80-97 Mean Corpuscular Hemoglobin 30 pg N 27-31 Mean Corpuscular HGB Conc 34 g/dL N 31-36 Red Cell Distribution Width 14 % N 10.5-15 Platelet Count 187 10^3/uL N 150-450 Mean Platelet Volume 8 um3 N 7.4-10.4 Abs Neutrophils 2.7 10^3/uL N 1.5-7.7 Abs Lymphocytes 2.7 10^3/uL N 1.0-4.8 Abs Monocytes 0.5 10^3/uL N 0-0.8 Abs Eosinophils 0.1 10^3/uL N 0-0.6 Abs Basophils 0 10^3/uL N 0-0.2 Abs Nucleated RBC 0 10^3/uL Granulocyte % 45.2 % N 38-83 Lymphocyte % 45.3 % N 25-47 Monocyte % 7.7 % N 1-9 Eosinophil % 1.2 % N 0-6 Basophil % 0.6 % N 0-2 Nucleated Red Blood Cells % 0.1 Cath Panel 09/28/2017 [facility] Partial 30.8 seconds N 26.0- 36.[address] [place] [address] PTT [phone] Inr/Protime 09/28/2017 [facility] Inr 0.88 N 0.77-1.[address] [place] [address] [phone] CBC Auto 01/03/2015 [facility] White Blood 7.4 10^3/uL N 4.8- 10.[address] [place] [address] [phone] Red Blood Count 4.51 10^6/uL N 4.0-5.4 Hemoglobin 13.4 g/dL N 12.0-16.0 Hematocrit 40 % N 35-47 Mean Corpuscular Volume 88 fL N 80-97 Mean Corpuscular Hemoglobin 30 pg N 27-31 Mean Corpuscular HGB Conc 34 g/dL N 31-36 Red Cell Distribution Width 14 % N 10.5-15 Platelet Count 194 10^3/uL N 150-450 Mean Platelet Volume 9 um3 N 7.4-10.4 Abs Neutrophils 3.7 10^3/uL N 1.5-7.7 Abs Lymphocytes 3.0 10^3/uL N 1.0-4.8 Abs Monocytes 0.6 10^3/uL N 0-0.8 Abs Eosinophils 0.1 10^3/uL N 0-0.6 Abs Basophils 0 10^3/uL N 0-0.2 Abs Nucleated RBC 0.01 10^3/uL N Granulocyte % 49.3 % N 38-83 Lymphocyte % 40.7 % N 25-47 Monocyte % 8.1 % N 1-9 Eosinophil % 1.5 % N 0-6 Basophil % 0.4 % N 0-2 Nucleated Red Blood Cells % 0.1 N Lipid Panel - 01/03/2015 [facility] Creatine Kinase 31 U/L N 10-[address] [place] [address] [phone] Comp Metabolic 01/03/2015 [facility] Sodium 141 mmol/L N 133- 145 Panel [address] [place] [address] [phone] Potassium 4.4 mmol/L N 3.5-5.0 Chloride 109 mmol/L N 101-111 Co2 Carbon Dioxide 25 mmol/L N 22-32 Anion Gap 7 mmol/L N 2-11 Glucose 118 mg/dL High 70-100 Blood Urea Nitrogen 22 mg/dL N 6-24 Creatinine 0.83 mg/dL N 0.51-0.95 BUN/Creatinine Ratio 26.5 High 8-20 Calcium 9.5 mg/dL N 8.6-10.3 Total Protein 6.4 g/dL N 6.4-8.9 Albumin 4.2 g/dL N 3.2-5.2 Globulin 2.2 g/dL N 2-4 Albumin/Globulin Ratio 1.9 N 1-3 Total Bilirubin 0.50 mg/dL N 0.2-1.0 Alkaline Phosphatase 66 U/L N 34-104 Alt 11 U/L N 7-52 Ast 10 U/L Low 13-39 Egfr Non- 66.7 N >60 Egfr 85.7 N >60 9 Lipid Profile 01/03/2015 [facility] Triglycerides 173 mg/dL N 10 (Trig/Chol/HDL) [address] [place] [address] [phone] Cholesterol 123 mg/dL N 11 HDL Cholesterol 40.6 mg/dL N 12 LDL Cholesterol 48 mg/dL N 13 Laboratory test 01/03/2015 [facility] Troponin I 0.01 ng/mL N <0.03 14 finding [address] [place] [address] [phone] 1 FASTING Copy Result to: LEONIDAS NORMAN ([id number]) 2 Because ethnic data is not always readily available, this report includes an eGFR for both -Americans and non- Americans. The National Kidney Disease Education Program (NKDEP) does not endorse the use of the MDRD equation for patients that are not between the ages of 18 and 70, are , have extremes of body size, muscle mass, or nutritional status, or are non- or non-. According to the National Kidney Foundation, irrespective of diagnosis, the stage of the disease is based on the level of kidney function: Stage Description GFR(mL/min/1.73 m(2)) 1 Kidney damage with normal or decreased GFR 90 2 Kidney damage with mild decrease in GFR 60-89 3 Moderate decrease in GFR 30-59 4 Severe decrease in GFR 15-29 5 Kidney failure <15 (or dialysis) 3 Desirable: <150 Borderline High: 150-199 High: 200-499 Very High: >500 4 Desirable: <200 Borderline High: 200-239 High: >239 5 Low: <40 Desirable: 40-60 High: >60 6 Desirable: <100 Near Optimal: 100-129 Borderline High: 130-159 High: 160-189 Very High: >189 7 FASTING Copy Result to: LEONIDAS NORMAN ([id number]) 8 FASTING Copy Result to: LEONIDAS NORMAN ([id number]) 9 Because ethnic data is not always readily available, this report includes an eGFR for both -Americans and non- Americans. The National Kidney Disease Education Program (NKDEP) does not endorse the use of the MDRD equation for patients that are not between the ages of 18 and 70, are , have extremes of body size, muscle mass, or nutritional status, or are non- or non-. According to the National Kidney Foundation, irrespective of diagnosis, the stage of the disease is based on the level of kidney function: Stage Description GFR(mL/min/1.73 m(2)) 1 Kidney damage with normal or decreased GFR 90 2 Kidney damage with mild decrease in GFR 60-89 3 Moderate decrease in GFR 30-59 4 Severe decrease in GFR 15-29 5 Kidney failure <15 (or dialysis) 10 Desirable <150 Borderline high 150-199 High 200-499 Very High >500 11 Desirable <200 Borderline high 200-239 High >239 12 Low <40 Desirable: 40-60 High: >60 13 Desirable: <100 mg/dL Near Optimal: 100-129 mg/dL Borderline High: 130-159 mg/dL High: 160-189 mg/dL Very High: >189 mg/dL 14 Reference Range and Interpretation: TnI (ng/mL) Interpretation Less Than 0.03 ng/mL Not supportive of diagnosis of DC 0.03 - 0.50 ng/mL Indeterminate: suggest serial studies if clinically indicated. Greater than 0.5 ng/mL Consistent with diagnosis of DC Procedures Date Code Description Status 09/01/2018 26470 Pace Maker Eval W/Iterative Adjment Dual Lead Completed 09/01/2018 61601 Pace Maker Eval W/Iterative Adjment Dual Lead Completed 08/04/2018 75507 Pace Maker Eval W/Iterative Adjment Dual Lead Completed 08/03/2018 07969 Perm Pacemaker Av Sequential Atrial And Ventricular Completed 11/05/2017 88611 EKG Tracing & Interpretation Completed 11/05/2017 73577 EKG Tracing & Interpretation Completed 10/01/2017 22147 ECHO Transthorasic Realtime 2D W Doppler & Color Flow Hosp Completed 09/28/2017 96955 EKG Tracing & Interpretation Completed 09/17/2017 58770 Treadmill Interp/Report Only Completed 09/17/2017 35790 Stress Test Supervsn W/Out I/R Completed 08/19/2017 67018 EKG Tracing & Interpretation Completed 03/04/2016 95127 ECHO Transthoracic, Real-Time 2D With Doppler And Color Completed Flow 01/15/2016 41449 EKG Tracing & Interpretation Completed 02/19/2015 10460 ECHO Transthoracic, Real-Time 2D With Doppler And Color Completed Flow 01/03/2015 15342 EKG Tracing & Interpretation Completed 01/17/2014 03581 Treadmill Interp/Report Only Completed 01/17/2014 49324 Stress Test Supervsn W/Out I/R Completed 12/11/2013 81442 ECHO Transthoracic, Real-Time 2D With Doppler And Color Completed Flow 11/29/2013 51885 EKG Tracing & Interpretation Completed 02/09/2013 19666 Polysomnography Sleep Staging 4+ Parameters Completed 02/12/2011 81315 Carpal Tunnel Release Completed 12/15/2010 69387 Carpal Tunnel Release Completed 06/04/2010 13281 EKG Tracing & Interpretation Completed 11/12/2009 62926 Treadmill Interp/Report Only Completed 11/12/2009 85094 Stress Test Supervsn W/Out I/R Completed Encounters Type Date Location Provider Dx Diagnosis Office Visit 08/10/2018 [facility] Leslie Aly, I10 Essential ( primary) 9:00a N.P. hypertension I25.119 [facility] heart disease of [place] cor art w [facility] ang pctrs E78.00 Pure hypercholesterolemia, unspecified I44.0 Atrioventricular block, first degree Z95.0 Presence of cardiac pacemaker Office Visit 08/04/2018 3:09p [facility] Cate De La Torre, I46.9 Cardiac arrest, Of Georges Canales cause unspecified R55 Syncope and collapse Z95.0 Presence of cardiac pacemaker I25.10 [facility] heart disease of [place] coronary artery w/o [facility] pctrs [facility] R07.9 Chest pain, 8:47a Assoc,pc M.DUmair unspecified Hospitalists R06.02 Shortness of breath I20.8 Other forms of angina pectoris I46.9 Cardiac arrest, cause unspecified R55 Syncope and collapse R91.8 Other nonspecific abnormal finding of lung field [facility], R07.9 Chest pain, 8:46a Assoc,melany Canales unspecified Hospitalists I46.9 Cardiac arrest, cause unspecified I20.8 Other forms of angina pectoris Office Visit 08/02/2018 3:06p [facility] Moe Ornelas I46.9 Cardiac arrest, Of Georges Palomares M.D. cause unspecified R55 Syncope and collapse I25.10 [facility] heart disease [facility] [place] [facility] 08/02/2018 8:46a [facility] Anya Beebe, R07.89 Other chest Assoc,melany Canales pain Hospitalists I46.9 Cardiac arrest, cause unspecified I20.8 Other forms of angina pectoris Office Visit 08/01/2018 [facility] Zarina J18.9 Pneumonia, 8:45a Assoc,melany Everett NP unspecified Hospitalists organism R07.89 Other chest pain E78.5 Hyperlipidemia, unspecified Office Visit 01/11/2018 1:00p [facility] Link Mccracken R07.9 Chest pain, Ally Gamino unspecified I25.2 Old myocardial infarction I10 Essential (primary) hypertension I25.119 [facility] heart disease of [place] cor art w [facility] pctrs E78.00 Pure hypercholesterolemia, unspecified Office Visit 11/05/2017 8:30a [facility] Leslie MyersUmair R07.9 Chest pain, Of Postmaster Foster, N.P. unspecified I10 Essential (primary) hypertension I25.119 [facility] heart disease of [place] cor art w uns ang pctrs E78.00 Pure hypercholesterolemia, unspecified Office Visit 09/28/2017 8:20a [facility] Link FUmair R07.9 Chest pain, Ally Gamino unspecified I42.9 Cardiomyopathy, unspecified I10 Essential (primary) hypertension I25.119 [facility] heart disease of [place] cor art w uns ang pctrs E78.00 Pure hypercholesterolemia, unspecified Office Visit 08/19/2017 [facility] Link Mccracken I42.9 Cardiomyopathy, 3:40p Cardiology Ally Gamino unspecified I10 Essential (primary) hypertension I25.118 [facility] heart disease of [place] cor art w [facility] ang pctrs E78.00 Pure hypercholesterolemia, unspecified I25.119 [facility] heart disease of [place] cor art w [facility] ang pctrs I44.0 Atrioventricular block, first degree I25.2 Old myocardial infarction Office Visit 09/22/2016 1:00p [facility] RODDY Phelan I25.119 [facility] heart Of Postmaster disease of [place] cor art w [facility] ang pctrs I10 Essential (primary) hypertension R06.00 Dyspnea, unspecified R07.9 Chest pain, unspecified Office Visit 03/25/2016 8:30a [facility] RODDY Phelan I25.119 [facility]scl heart disease of [place] cor art w [facility] ang pctrs I10 Essential (primary) hypertension I42.9 Cardiomyopathy, unspecified Office Visit 01/15/2016 9:00a [facility] Link Mccracken I25.118 [facility] heart Ally Gamino disease of [place] cor art w [facility] ang pctrs I34.0 Nonrheumatic mitral (valve) insufficiency R06.00 Dyspnea, unspecified Office Visit 03/07/2015 Anu Delgado 414.01 Coronary 9:00a Cardiology RODDY Atherosclerosis [place] 424.0 Mitral Valve Disorder 272.0 Hypercholesterolemia Pure 401.1 Hypertension Benign 327.23 Obstructive Sleep Apnea Adult & Pediatric Office Visit 01/03/2015 Anu Mccracken 414.01 Coronary 11:30a Cardiology Ally Gamino Atherosclerosis [place] 272.0 Hypercholesterolemia Pure 250.00 Diabetes Mellitus W/O Compl Type II Or Unspec Controlled 424.0 Mitral Valve Disorder 786.50 Pain Chest Unspec Office Visit 01/02/2014 8:30a [facility] RODDY Phelan 786.50 Pain Chest Unspec 414.01 Coronary Atherosclerosis [place] 272.0 Hypercholesterolemia Pure 250.00 Diabetes Mellitus W/O Compl Type II Or Unspec Controlled Office Visit 11/29/2013 [facility] Link Mccracken 414.01 Coronary 8:40a Cardiology Ally Gamino Atherosclerosis [place] 401.1 Hypertension Benign 786.50 Pain Chest Unspec 272.0 Hypercholesterolemia Pure 250.00 Diabetes Mellitus W/O Compl Type II Or Unspec Controlled Office 12/11/2010 [facility] Janneth 354.0 Carpal Tunnel Visit 9:30a Services Of Ally [place] Syndrome C.M.A. Office 06/04/2010 [facility] Amita Swann, 414.01 Coronary Visit 10:20a Cardiology D.OUmair Atherosclerosis [place] 412 Myocardial Infarction Old 401.1 Hypertension Benign 592.0 Calculus Of Kidney 272.4 Hyperlipidemia Other Unspec V72.81 Examination Preoperative Cardiovascular Office Visit 11/12/2009 [facility] Link Mccracken 414.01 Coronary 11:00a Cardiology Ally Gamino Atherosclerosis [place] 786.50 Pain Chest Unspec 412 Myocardial Infarction Old 401.1 Hypertension Benign Plan of Treatment Future Appointment(s):09/26/2018 9:00 am - [facility] - Leslie Aly, N.P.Z95.0 Presence of cardiac pacemakerRecommendations:[facility] PRN ok to have [id number] Essential ( primary) hypertensionFollow up:PO check 3-4 weeks OV [facility] 12/2018Recommendations: BP controlled on lower dose of airasermxjJ62.119 Atherosclerotic heart disease of [place] coronary artery withRecommendations:If you have any further chest pain let us know; We could restart lower dose of the nitro patch.E78.00 Pure hypercholesterolemia, eculdmhdmlaP20.0 Atrioventricular block, first degree
--- OUTSIDE RECORDS SUMMARY | 2018-10-07 16:53 | XMS REPORT | Continuity of Care Document ---
:1935 External Reference #:[id number] Author Name Vonda Reyes Care Team Providers Name Role Phone Leonidas Norman MD Primary Care Physician Unavailable Payers Type Date Identification Numbers Payment Provider Subscriber Policy Number: [id number] Juan Gonzalez Group Number: [id number] [address] PayID: [id number] [place] [address] Advance Directives Description No Information Available Problems Date Description Provider Status Onset: 12/11/2013 Chest pain [place] [facility] Schedule Active Onset: 12/11/2013 Coronary arteriosclerosis [place] [facility] Schedule Active Onset: 12/11/2013 Mitral valve disorder [place] [facility] Schedule Active Onset: 01/02/2014 Pure hypercholesterolemia [...] Use Denies Drug Use Smoking Status Reviewed: 09/01/18 Patient has never smoked Exercise Type/Frequency Exercises [...] s mouth every Nawaf Gamino, 08/09/ day M.DUmair 2018 Nitroglycerin 09/22/ Hx Patches 0.4mg/HR 30uni place one Link 2017 - 24HR ts patch in Nwaaf Gamino, 09/22/ the morning M.DUmair 2016 and [...] Patches 0.1mg/HR 30uni 1 patch Link 2013 - 24HR ts applied to Nawaf Gamino, 01/02/ [...] 100mg 60tab 1 po bid Unknown Tartrate - s 2014 Simvastatin /00/ Hx Tablets 20mg 90tab 1 po qhs Unknown 0000 s Ibuprofen 00/ Hx Tablets 800mg 90tab po tid prn Unknown 0000 s Percocet / Hx Tablets 5-325mg 40tab 1-2 po q4h Unknown 0000 s prn need to clarify with pts daughter Atorvastatin 00/00/ Hx Tablets 10mg 1 by mouth Other Calcium 0000 - every day Ordering 01/03/ Provider 2014 Colcrys 0000/ Hx Tablets 0.6mg 1 by mouth Other 0000 - every day Ordering Provider 2014 Losartan 0000/ Hx Tablets 100mg 90tab 1 by mouth Other Potassium 0000 - s every day Ordering 09/28/ Provider 2018 Lopressor / Hx Tablets 100mg 1 and 1/2 Unknown 0000 - PO bid 2014 Omeprazole / Hx Capsules 20mg 1 by mouth Unknown 0000 - DR every day 2017 Immunizations Description No Information Available Vital Signs Date Vital Result Comment 09/01/2018 3:45pm Height 66 inches 5'6" Weight [...] Result H/L Range Note Laboratory test 09/07/2018 [facility] Magnesium 1.9 mg/dL N 1.9-2.7 finding [address] [place] [address] [phone] Lipid Panel - JFM 09/28/2017 [facility] Creatine 19 U/L N 10- 223 1 101 [facility] Kinase(CK) [place] [address] [phone] Comp Metabolic 09/28/2017 [facility] Sodium 140 mmol/L N 133- [address] [place] [address] [phone] Potassium 4.9 mmol/L N 3.5-5.0 Chloride 108 [...] Egfr 83.9 >60 2 Lipid Profile 09/28/2017 [facility] Triglycerides 120 mg/dL 3 (Trig/Chol/HDL) [address] [place] [address] [phone] Cholesterol 126 mg/dL 4 HDL Cholesterol 42.7 mg/dL 5 LDL Cholesterol 59 mg/dL 6 Laboratory test 09/28/2017 [facility] Troponin-I 0.01 ng/mL < 0.[address] (TnI) [place] [address] [phone] CBC Auto Diff 09/28/2017 [facility] White Blood 6.0 N 3.5- 10.[address] Count 10^3/[place] [address] [phone] Red Blood Count 4.70 10^6/uL N 4.0-5.4 [...] Blood Cells % 0.1 Cath Panel 09/28/2017 [facility] Partial 30.8 seconds N 26.0- 36.[address] [place] [address] PTT [phone] Inr/Protime 09/28/2017 [facility] Inr 0.88 N 0.77-1.[address] [place] [address] [phone] CBC Auto 01/03/2015 [facility] White Blood 7.4 10^3/uL N 4.8- 10.[address] [place] [address] [phone] Red Blood Count 4.51 10^6/uL N 4.0-5.4 [...] % 0.1 N Lipid Panel - 01/03/2015 [facility] Creatine Kinase 31 U/L N 10-[address] [place] [address] [phone] Comp Metabolic 01/03/2015 [facility] Sodium 141 mmol/L N 133- 145 Panel [address] [place] [address] [phone] Potassium 4.4 mmol/L N 3.5-5.0 Chloride 109 [...] 85.7 N >60 9 Lipid Profile 01/03/2015 [facility] Triglycerides 173 mg/dL N 10 (Trig/Chol/HDL) [address] [place] [address] [phone] Cholesterol 123 mg/dL N 11 HDL Cholesterol 40.6 mg/dL N 12 LDL Cholesterol 48 mg/dL N 13 Laboratory test 01/03/2015 [facility] Troponin I 0.01 ng/mL N <0.03 14 finding [address] [place] [address] [phone] 1 FASTING Copy Result to: LEONIDAS NORMAN ([id number]) 2 Because ethnic data is not always [...] High: >189 7 FASTING Copy Result to: SHAKIRASHILPILEONIDAS ([id number]) 8 FASTING Copy Result to: LEONIDAS NORMAN ([id number]) 9 Because ethnic data is not always [...] 0.03 ng/mL Not supportive of diagnosis of [place] 0.03 - 0.50 ng/mL Indeterminate: suggest serial studies if clinically indicated. Greater than 0.5 ng/mL Consistent with diagnosis of [place] Procedures Date Code Description Status 09/01/2018 61760 Pace Maker Eval W/Iterative Adjment Dual Lead Completed 09/01/2018 45012 Pace Maker Eval W/Iterative Adjment Dual Lead Completed 08/04/2018 46459 Pace Maker Eval W/Iterative Adjment Dual Lead Completed 08/03/2018 57054 Perm Pacemaker Av Sequential Atrial And Ventricular Completed 11/05/2017 69980 EKG Tracing & Interpretation Completed 11/05/2017 14092 EKG Tracing & Interpretation Completed 10/01/2017 20648 ECHO Transthorasic Realtime 2D W Doppler & Color Flow Hosp Completed 09/28/2017 59602 EKG Tracing & Interpretation Completed 09/17/2017 44526 Treadmill Interp/Report Only Completed 09/17/2017 65299 Stress Test Supervsn W/Out I/R Completed 08/19/2017 40780 EKG Tracing & Interpretation Completed 03/04/2016 12217 ECHO Transthoracic, Real-Time 2D With Doppler And Color Completed Flow 01/15/2016 29238 EKG Tracing & Interpretation Completed 02/19/2015 36492 ECHO Transthoracic, Real-Time 2D With Doppler And Color Completed Flow 01/03/2015 22788 EKG Tracing & Interpretation Completed 01/17/2014 17356 Treadmill Interp/Report Only Completed 01/17/2014 22532 Stress Test Supervsn W/Out I/R Completed 12/11/2013 63571 ECHO Transthoracic, Real-Time 2D With Doppler And Color Completed Flow 11/29/2013 85567 EKG Tracing & Interpretation Completed 02/09/2013 14912 Polysomnography Sleep Staging 4+ Parameters Completed 02/12/2011 68755 Carpal Tunnel Release Completed 12/15/2010 55173 Carpal Tunnel Release Completed 06/04/2010 26903 EKG Tracing & Interpretation Completed 11/12/2009 67509 Treadmill Interp/Report Only Completed 11/12/2009 80567 Stress Test Supervsn W/Out I/R Completed Encounters Type Date Location Provider Dx Diagnosis Office Visit 08/10/2018 [facility] Leslie Aly, I10 Essential ( primary) 9:00a N.P. hypertension I25.119 Athscl heart disease of [place] cor art w unsp ang pctrs E78.00 Pure hypercholesterolemia, unspecified I44.0 Atrioventricular block, first degree Z95.0 Presence of cardiac pacemaker Office Visit 08/04/2018 3:09p [facility] Cate De La Torre, I46.9 Cardiac arrest, Of Perl Developer M.D. cause unspecified R55 Syncope and collapse Z95.0 Presence of cardiac pacemaker I25.10 Athscl heart disease of [place] coronary artery w/o ang pctrs Office Visit 08/04/2018 [facility] Anya Beebe, R07.9 Chest pain, 8:47a Assoc,melany Canales unspecified Hospitalists R06.02 Shortness of breath I20.8 Other forms of angina pectoris I46.9 Cardiac arrest, cause unspecified R55 Syncope and collapse R91.8 Other nonspecific abnormal finding of lung field Office Visit 08/03/2018 [facility] Anya Beebe, R07.9 Chest pain, 8:46a Assocmelany M.D. unspecified Hospitalists I46.9 Cardiac arrest, cause unspecified I20.8 Other forms of angina pectoris Office Visit 08/02/2018 3:06p [facility] Moe Ornelas I46.9 Cardiac arrest, Of Georges Palomares M.D. cause unspecified R55 Syncope and collapse I25.10 Athscl heart disease of [place] coronary artery w/o [facility] pctrs Office Visit 08/02/2018 8:46a [facility] Anya Mcclainhn, R07.89 Other chest Assoc,melany Canales pain Hospitalists I46.9 Cardiac arrest, cause unspecified I20.8 Other forms of angina pectoris Office Visit 08/01/2018 [facility] Zarina J18.9 Pneumonia, 8:45a Assoc,melany Everett NP unspecified Hospitalists organism R07.89 Other chest pain E78.5 Hyperlipidemia, unspecified Office Visit 01/11/2018 1:00p [facility] Link Mccracken R07.9 Chest painStevenson M.D. unspecified I25.2 Old myocardial infarction I10 Essential (primary) hypertension I25.119 Athscl heart disease of [place] cor art w [facility] pctrs E78.00 Pure hypercholesterolemia, unspecified Office Visit 11/05/2017 8:30a [facility] Leslie Alfonso R07.9 Chest pain, Of Georges Aly NUmairPUmair unspecified I10 Essential (primary) hypertension I25.119 Athscl heart disease of [place] cor art w [facility] pctrs E78.00 Pure hypercholesterolemia, unspecified Office Visit 09/28/2017 8:20a [facility] Link Mccracken R07.9 Chest pain, Ally Gamino unspecified I42.9 Cardiomyopathy, unspecified I10 Essential (primary) hypertension I25.119 Athscl heart disease of [place] cor art w [facility] pctrs E78.00 Pure hypercholesterolemia, unspecified Office Visit 08/19/2017 Anu Mccracken I42.9 Cardiomyopathy, 3:40p Cardiology Ally Gamino unspecified I10 Essential (primary) hypertension I25.118 Athscl heart disease of [place] cor art w [facility] pctrs E78.00 Pure hypercholesterolemia, unspecified I25.119 Athscl heart disease of [place] cor art w [facility] pctrs I44.0 Atrioventricular block, first degree I25.2 Old myocardial infarction Office Visit 09/22/2016 1:00p [facility] RODDY Phelan I25.119 [place] heart Of Perl Developer disease of [place] cor art w [facility] pctrs I10 Essential (primary) hypertension R06.00 Dyspnea, unspecified R07.9 Chest pain, unspecified Office Visit 03/25/2016 8:30a [facility] RODDY Phelan I25.119 Athscl heart disease of [place] cor art w [facility] pctrs I10 Essential (primary) hypertension I42.9 Cardiomyopathy, unspecified Office Visit 01/15/2016 9:00a [facility] Link Mccracken I25.118 Athtxl heart Ally Gamino disease of [place] cor art w [facility] pctrs I34.0 Nonrheumatic mitral (valve) insufficiency R06.00 Dyspnea, unspecified Office Visit 03/07/2015 Anu Delgado, 414.01 Coronary 9:00a Cardiology RODDY Atherosclerosis [place] 424.0 Mitral Valve Disorder 272.0 Hypercholesterolemia Pure 401.1 Hypertension Benign 327.23 Obstructive Sleep Apnea Adult & Pediatric Office Visit 01/03/2015 Anu Mccracken 414.01 Coronary 11:30a Eloisa Gamino M.D. Atherosclerosis [place] 272.0 Hypercholesterolemia Pure 250.00 Diabetes Mellitus W/O Compl Type II Or Unspec Controlled 424.0 Mitral Valve Disorder 786.50 Pain Chest Unspec Office Visit 01/02/2014 8:30a [facility] RODDY Phelan 786.50 Pain Chest Unspec 414.01 Coronary Atherosclerosis [place] 272.0 Hypercholesterolemia Pure 250.00 Diabetes Mellitus W/O Compl Type II Or Unspec Controlled Office Visit 11/29/2013 Anu Mccracken 414.01 Coronary 8:40a Cardiology Ally Gamino Atherosclerosis [place] 401.1 Hypertension Benign 786.50 Pain Chest Unspec 272.0 Hypercholesterolemia Pure 250.00 Diabetes Mellitus W/O Compl Type II Or Unspec Controlled Office 12/11/2010 Orthopedic Janneth 354.0 Carpal Tunnel Visit 9:30a Services Of Ally Durham Syndrome C.M.A. Office 06/04/2010 Anu Amita Swann, 414.01 Coronary Visit 10:20a Cardiology D.OUmair Atherosclerosis [place] 412 Myocardial Infarction Old 401.1 Hypertension Benign 592.0 Calculus Of Kidney 272.4 Hyperlipidemia Other Unspec V72.81 Examination Preoperative Cardiovascular Office Visit 11/12/2009 Anu Mccracken 414.01 Coronary 11:00a Cardiology Ally Gamino Atherosclerosis [place] 786.50 Pain Chest Unspec 412 Myocardial Infarction Old 401.1 Hypertension Benign Plan of Treatment Future Appointment(s):09/13/2018 9:00 am - Leslie Aly N.PUmair at [facility]09/01/2018 - Link Gamino M.D.I10 Essential (primary) pcfkqsxvfzeeU97.119 Atherosclerotic heart disease of [place] coronary artery withI46.9 Cardiac arrest, cause rtuedoldqqsE16 Syncope and mjoxkmopZ57.5 Sick sinus syndromeNew Orders:Implant Pacemaker, Ordered: 09/01/18R60.9 Edema, unspecifiedFollow up:luna Nelson 2 -3 weeks. ov JFM 4 mRecommendations:reduce amlodipine to 5 mg qd. luna Nelson 2 -3 weeks.
--- OUTSIDE RECORDS SUMMARY | 2018-10-07 16:53 | XMS REPORT | Continuity of Care Document ---
:1935 External Reference #:[id number] Author Name Vonda Reyes Care Team Providers Name Role Phone Leonidas Norman MD Primary Care Physician Unavailable Payers Type Date Identification Numbers Payment Provider Subscriber Policy Number: [id number] Juan Gonzalez Group Number: [id number] [address] PayID: [id number] [place] [address] Advance Directives Description No Information Available Problems Date Description Provider Status Onset: 12/11/2013 Chest pain [place] [facility] Schedule Active Onset: 12/11/2013 Coronary arteriosclerosis [facility] Schedule Active Onset: 12/11/2013 Mitral valve disorder [place] [facility] Schedule Active Onset: 01/02/2014 Pure hypercholesterolemia [...] Result H/L Range Note Laboratory test 09/07/2018 [facility] Magnesium 1.9 mg/dL N 1.9-2.7 finding [address] [place] [address] [phone] Lipid Panel - JFM 09/28/2017 [facility] Creatine 19 U/L N 10- 223 1 101 [facility] Kinase(CK) [place] [address] [phone] Comp Metabolic 09/28/2017 [facility] Sodium 140 mmol/L N 133- [address] [place] [address] [phone] Potassium 4.9 mmol/L N 3.5-5.0 Chloride 108 [...] Egfr 83.9 >60 2 Lipid Profile 09/28/2017 [facility] Triglycerides 120 mg/dL 3 (Trig/Chol/HDL) [address] [place] [address] [phone] Cholesterol 126 mg/dL 4 HDL Cholesterol 42.7 mg/dL 5 LDL Cholesterol 59 mg/dL 6 Laboratory test 09/28/2017 [facility] Troponin-I 0.01 ng/mL < 0.[address] (TnI) [place] [address] [phone] CBC Auto Diff 09/28/2017 [facility] White Blood 6.0 N 3.5- 10.[address] Count 10^3/[place] [address] [phone] Red Blood Count 4.70 10^6/uL N 4.0-5.4 [...] Blood Cells % 0.1 Cath Panel 09/28/2017 [facility] Partial 30.8 seconds N 26.0- 36.[address] [place] [address] PTT [phone] Inr/Protime 09/28/2017 [facility] Inr 0.88 N 0.77-1.[address] [place] [address] [phone] CBC Auto 01/03/2015 [facility] White Blood 7.4 10^3/uL N 4.8- 10.[address] [place] [address] [phone] Red Blood Count 4.51 10^6/uL N 4.0-5.4 [...] % 0.1 N Lipid Panel - 01/03/2015 [facility] Creatine Kinase 31 U/L N 10-[address] [place] [address] [phone] Comp Metabolic 01/03/2015 [facility] Sodium 141 mmol/L N 133- 145 Panel [address] [place] [address] [phone] Potassium 4.4 mmol/L N 3.5-5.0 Chloride 109 [...] 85.7 N >60 9 Lipid Profile 01/03/2015 [facility] Triglycerides 173 mg/dL N 10 (Trig/Chol/HDL) [address] [place] [address] [phone] Cholesterol 123 mg/dL N 11 HDL Cholesterol 40.6 mg/dL N 12 LDL Cholesterol 48 mg/dL N 13 Laboratory test 01/03/2015 [facility] Troponin I 0.01 ng/mL N <0.03 14 finding [address] [place] [address] [phone] 1 FASTING Copy Result to: LEONIDAS NORMAN ([id number]) 2 Because ethnic data is not always [...] >189 7 FASTING Copy Result to: SHAKIRASHILPILEONIDAS ([id number]) 8 FASTING Copy Result to: LEONIDAS NORMAN ([id number]) 9 Because ethnic data is not always [...] 0.03 ng/mL Not supportive of diagnosis of [place] 0.03 - 0.50 ng/mL Indeterminate: suggest serial studies if clinically indicated. Greater than 0.5 ng/mL Consistent with diagnosis of [place] Procedures Date Code Description Status 09/01/2018 55708 Pace Maker Eval W/Iterative Adjment Dual Lead Completed 09/01/2018 54104 Pace Maker Eval W/Iterative Adjment Dual Lead Completed 08/04/2018 69568 Pace Maker Eval W/Iterative Adjment Dual Lead Completed 08/03/2018 06250 Perm Pacemaker Av Sequential Atrial And Ventricular Completed 11/05/2017 42690 EKG Tracing & Interpretation Completed 11/05/2017 64253 EKG Tracing & Interpretation Completed 10/01/2017 75964 ECHO Transthorasic Realtime 2D W Doppler & Color Flow Hosp Completed 09/28/2017 90018 EKG Tracing & Interpretation Completed 09/17/2017 08692 Treadmill Interp/Report Only Completed 09/17/2017 71015 Stress Test Supervsn W/Out I/R Completed 08/19/2017 05637 EKG Tracing & Interpretation Completed 03/04/2016 98882 ECHO Transthoracic, Real-Time 2D With Doppler And Color Completed Flow 01/15/2016 32211 EKG Tracing & Interpretation Completed 02/19/2015 00698 ECHO Transthoracic, Real-Time 2D With Doppler And Color Completed Flow 01/03/2015 77043 EKG Tracing & Interpretation Completed 01/17/2014 33191 Treadmill Interp/Report Only Completed 01/17/2014 59604 Stress Test Supervsn W/Out I/R Completed 12/11/2013 34892 ECHO Transthoracic, Real-Time 2D With Doppler And Color Completed Flow 11/29/2013 62113 EKG Tracing & Interpretation Completed 02/09/2013 61425 Polysomnography Sleep Staging 4+ Parameters Completed 02/12/2011 36861 Carpal Tunnel Release Completed 12/15/2010 84002 Carpal Tunnel Release Completed 06/04/2010 26409 EKG Tracing & Interpretation Completed 11/12/2009 24138 Treadmill Interp/Report Only Completed 11/12/2009 20843 Stress Test Supervsn W/Out I/R Completed Encounters Type Date Location Provider Dx Diagnosis Office Visit 08/10/2018 [facility] Leslie Aly, I10 Essential ( primary) 9:00a N.P. hypertension I25.119 Athscl heart disease of [place] cor art w unsp ang pctrs E78.00 Pure hypercholesterolemia, unspecified I44.0 Atrioventricular block, first degree Z95.0 Presence of cardiac pacemaker Office Visit 08/04/2018 3:09p [facility] Cate De La Torre, I46.9 Cardiac arrest, Of Skein Inspector M.D. cause unspecified R55 Syncope and collapse Z95.0 Presence of cardiac pacemaker I25.10 Athscl heart disease of [place] coronary artery w/o ang pctrs Office Visit 08/04/2018 [facility] Anya Beebe, R07.9 Chest pain, 8:47a Assoc,melany Canales unspecified Hospitalists R06.02 Shortness of breath I20.8 Other forms of angina pectoris I46.9 Cardiac arrest, cause unspecified R55 Syncope and collapse R91.8 Other nonspecific abnormal finding of lung field Office Visit 08/03/2018 [facility] Anya Beebe, R07.9 Chest pain, 8:46a Assocmelany M.D. unspecified Hospitalists I46.9 Cardiac arrest, cause unspecified I20.8 Other forms of angina pectoris Office Visit 08/02/2018 3:06p [facility] Moe Ornelas I46.9 Cardiac arrest, Of Georges Palomares M.D. cause unspecified R55 Syncope and collapse I25.10 Athscl heart disease of [place] coronary artery w/o [facility] pctrs Office Visit 08/02/2018 8:46a [facility] Anya Mcclainhn, R07.89 Other chest Assoc,melany Canales pain Hospitalists I46.9 Cardiac arrest, cause unspecified I20.8 Other forms of angina pectoris Office Visit 08/01/2018 [facility] Zarina J18.9 Pneumonia, 8:45a Assoc,melany Everett NP unspecified Hospitalists organism R07.89 Other chest pain E78.5 Hyperlipidemia, unspecified Office Visit 01/11/2018 1:00p [facility] Link Mccracken R07.9 Chest painStevenson M.D. unspecified I25.2 Old myocardial infarction I10 Essential (primary) hypertension I25.119 Athscl heart disease of [place] cor art w [facility] pctrs E78.00 Pure hypercholesterolemia, unspecified Office Visit 11/05/2017 8:30a [facility] Leslie Alfonso R07.9 Chest pain, Of Georges Aly NUmairPUmair unspecified I10 Essential (primary) hypertension I25.119 Athscl heart disease of [place] cor art w [facility] pctrs E78.00 Pure hypercholesterolemia, unspecified Office Visit 09/28/2017 8:20a [facility] Link Mccracken R07.9 Chest pain, Ally Gamino unspecified I42.9 Cardiomyopathy, unspecified I10 Essential (primary) hypertension I25.119 Athscl heart disease of [place] cor art w [facility] pctrs E78.00 Pure hypercholesterolemia, unspecified Office Visit 08/19/2017 Anu Mccracken I42.9 Cardiomyopathy, 3:40p Cardiology Ally Gamino unspecified I10 Essential (primary) hypertension I25.118 Athscl heart disease of [place] cor art w [facility] pctrs E78.00 Pure hypercholesterolemia, unspecified I25.119 Athscl heart disease of [place] cor art w [facility] pctrs I44.0 Atrioventricular block, first degree I25.2 Old myocardial infarction Office Visit 09/22/2016 1:00p [facility] RODDY Phelan I25.119 Aths[place] heart Of Skein Inspector disease of [place] cor art w [facility] pctrs I10 Essential (primary) hypertension R06.00 Dyspnea, unspecified R07.9 Chest pain, unspecified Office Visit 03/25/2016 8:30a [facility] RODDY Phelan I25.119 Athscl heart disease of [place] cor art w [facility] pctrs I10 Essential (primary) hypertension I42.9 Cardiomyopathy, unspecified Office Visit 01/15/2016 9:00a [facility] Link Mccracken I25.118 [place] heart Ally Gamino disease of [place] cor art w [facility] pctrs I34.0 Nonrheumatic mitral (valve) insufficiency R06.00 Dyspnea, unspecified Office Visit 03/07/2015 Anu Delgado, 414.01 Coronary 9:00a Cardiology RODDY Atherosclerosis [place] 424.0 Mitral Valve Disorder 272.0 Hypercholesterolemia Pure 401.1 Hypertension Benign 327.23 Obstructive Sleep Apnea Adult & Pediatric Office Visit 01/03/2015 Anu Mccracken 414.01 Coronary 11:30a Eloisa Gamino M.D. Atherosclerosis [place] 272.0 Hypercholesterolemia Pure 250.00 Diabetes Mellitus W/O Compl Type II Or Unspec Controlled 424.0 Mitral Valve Disorder 786.50 Pain Chest Unspec Office Visit 01/02/2014 8:30a [facility] RODDY Phelan 786.50 Pain Chest Unspec 414.01 Coronary Atherosclerosis [place] 272.0 Hypercholesterolemia Pure 250.00 Diabetes Mellitus W/O Compl Type II Or Unspec Controlled Office Visit 11/29/2013 Anu Mccracken 414.01 Coronary 8:40a Cardiology Ally Gamino Atherosclerosis [place] 401.1 Hypertension Benign 786.50 Pain Chest Unspec 272.0 Hypercholesterolemia Pure 250.00 Diabetes Mellitus W/O Compl Type II Or Unspec Controlled Office 12/11/2010 Orthopedic Janneth 354.0 Carpal Tunnel Visit 9:30a Services Of Ally [place] Syndrome C.M.A. Office 06/04/2010 Anu Amita Swann, 414.01 Coronary Visit 10:20a Cardiology D.OUmair Atherosclerosis [place] 412 Myocardial Infarction Old 401.1 Hypertension Benign 592.0 Calculus Of Kidney 272.4 Hyperlipidemia Other Unspec V72.81 Examination Preoperative Cardiovascular Office Visit 11/12/2009 [facility] Mccracken 414.01 Coronary 11:00a Cardiology Ally Gamino Atherosclerosis [place] 786.50 Pain Chest Unspec 412 Myocardial Infarction Old 401.1 Hypertension Benign Plan of Treatment Future Appointment(s):09/13/2018 3:00 pm - [facility] Link Gamino M.D.I10 Essential (primary) oishravqddojD63.119 Atherosclerotic heart disease of [place] coronary artery withI46.9 Cardiac arrest, cause iziicnxrixaT93 Syncope and iuxdgdkjL73.5 Sick sinus syndromeNew Orders:Implant Pacemaker, Ordered: 09/01/18R60.9 Edema, unspecifiedFollow up:luna Nelson 2 -3 weeks. ov JFM 4 mRecommendations:reduce amlodipine to 5 mg qd. luna Nelson 2 -3 weeks.
--- OUTSIDE RECORDS SUMMARY | 2018-10-07 16:53 | XMS REPORT | Continuity of Care Document ---
:1935 External Reference #:[id number] Author Name Vonda Reyes Care Team Providers Name Role Phone Leonidas Norman MD Primary Care Physician Unavailable Payers Type Date Identification Numbers Payment Provider Subscriber Policy Number: [id number] Juan Gonzalez Group Number: [id number] [address] PayID: [id number] [place] [address] Advance Directives Description No Information Available Problems Date Description Provider Status Onset: 12/11/2013 Chest pain [facility] Schedule Active Onset: 12/11/2013 Coronary arteriosclerosis [facility] Schedule Active Onset: 12/11/2013 Mitral valve disorder [facility] Schedule Active Onset: 01/02/2014 Pure hypercholesterolemia [...] Result H/L Range Note Laboratory test 09/07/2018 [facility] Magnesium 1.9 mg/dL N 1.9-2.7 finding [address] [place] [address] [phone] Lipid Panel - JFM 09/28/2017 [facility] Creatine 19 U/L N 10- 223 1 101 [facility] Kinase(CK) [place] [address] [phone] Comp Metabolic 09/28/2017 [facility] Sodium 140 mmol/L N 133- [address] [place] [address] [phone] Potassium 4.9 mmol/L N 3.5-5.0 Chloride 108 [...] Egfr 83.9 >60 2 Lipid Profile 09/28/2017 [facility] Triglycerides 120 mg/dL 3 (Trig/Chol/HDL) [address] [place] [address] [phone] Cholesterol 126 mg/dL 4 HDL Cholesterol 42.7 mg/dL 5 LDL Cholesterol 59 mg/dL 6 Laboratory test 09/28/2017 [facility] Troponin-I 0.01 ng/mL < 0.[address] (TnI) [place] [address] [phone] CBC Auto Diff 09/28/2017 [facility] White Blood 6.0 N 3.5- 10.[address] Count 10^3/[place] [address] [phone] Red Blood Count 4.70 10^6/uL N 4.0-5.4 [...] Blood Cells % 0.1 Cath Panel 09/28/2017 [facility] Partial 30.8 seconds N 26.0- 36.[address] [place] [address] PTT [phone] Inr/Protime 09/28/2017 [facility] Inr 0.88 N 0.77-1.[address] [place] [address] [phone] CBC Auto 01/03/2015 [facility] White Blood 7.4 10^3/uL N 4.8- 10.[address] [place] [address] [phone] Red Blood Count 4.51 10^6/uL N 4.0-5.4 [...] % 0.1 N Lipid Panel - 01/03/2015 [facility] Creatine Kinase 31 U/L N 10-[address] [place] [address] [phone] Comp Metabolic 01/03/2015 [facility] Sodium 141 mmol/L N 133- 145 Panel [address] [place] [address] [phone] Potassium 4.4 mmol/L N 3.5-5.0 Chloride 109 [...] 85.7 N >60 9 Lipid Profile 01/03/2015 [facility] Triglycerides 173 mg/dL N 10 (Trig/Chol/HDL) [address] [place] [address] [phone] Cholesterol 123 mg/dL N 11 HDL Cholesterol 40.6 mg/dL N 12 LDL Cholesterol 48 mg/dL N 13 Laboratory test 01/03/2015 [facility] Troponin I 0.01 ng/mL N <0.03 14 finding [address] [place] [address] [phone] 1 FASTING Copy Result to: LEONIDAS NORMAN ([id number]) 2 Because ethnic data is not always [...] >189 7 FASTING Copy Result to: SHAKIRASHILPILEONIDAS ([id number]) 8 FASTING Copy Result to: LEONIDAS NORMAN ([id number]) 9 Because ethnic data is not always [...] 0.03 ng/mL Not supportive of diagnosis of [place] 0.03 - 0.50 ng/mL Indeterminate: suggest serial studies if clinically indicated. Greater than 0.5 ng/mL Consistent with diagnosis of [place] Procedures Date Code Description Status 09/01/2018 43663 Pace Maker Eval W/Iterative Adjment Dual Lead Completed 09/01/2018 47187 Pace Maker Eval W/Iterative Adjment Dual Lead Completed 08/04/2018 62275 Pace Maker Eval W/Iterative Adjment Dual Lead Completed 08/03/2018 39992 Perm Pacemaker Av Sequential Atrial And Ventricular Completed 11/05/2017 52994 EKG Tracing & Interpretation Completed 11/05/2017 76996 EKG Tracing & Interpretation Completed 10/01/2017 33293 ECHO Transthorasic Realtime 2D W Doppler & Color Flow Hosp Completed 09/28/2017 22139 EKG Tracing & Interpretation Completed 09/17/2017 38836 Treadmill Interp/Report Only Completed 09/17/2017 69272 Stress Test Supervsn W/Out I/R Completed 08/19/2017 53491 EKG Tracing & Interpretation Completed 03/04/2016 69176 ECHO Transthoracic, Real-Time 2D With Doppler And Color Completed Flow 01/15/2016 53656 EKG Tracing & Interpretation Completed 02/19/2015 25013 ECHO Transthoracic, Real-Time 2D With Doppler And Color Completed Flow 01/03/2015 27783 EKG Tracing & Interpretation Completed 01/17/2014 42447 Treadmill Interp/Report Only Completed 01/17/2014 90460 Stress Test Supervsn W/Out I/R Completed 12/11/2013 02634 ECHO Transthoracic, Real-Time 2D With Doppler And Color Completed Flow 11/29/2013 80437 EKG Tracing & Interpretation Completed 02/09/2013 01476 Polysomnography Sleep Staging 4+ Parameters Completed 02/12/2011 37642 Carpal Tunnel Release Completed 12/15/2010 16716 Carpal Tunnel Release Completed 06/04/2010 84670 EKG Tracing & Interpretation Completed 11/12/2009 91174 Treadmill Interp/Report Only Completed 11/12/2009 59398 Stress Test Supervsn W/Out I/R Completed Encounters Type Date Location Provider Dx Diagnosis Office Visit 08/10/2018 [facility] Leslie Aly, I10 Essential ( primary) 9:00a N.P. hypertension I25.119 [place] heart disease of [place] cor art w unsp ang pctrs E78.00 Pure hypercholesterolemia, unspecified I44.0 Atrioventricular block, first degree Z95.0 Presence of cardiac pacemaker Office Visit 08/04/2018 3:09p [facility] Cate De La Torre, I46.9 Cardiac arrest, Of Hammer Runner M.D. cause unspecified R55 Syncope and collapse Z95.0 Presence of cardiac pacemaker I25.10 [place] heart disease of [place] coronary artery w/o ang pctrs Office Visit 08/04/2018 [facility] Anya Beebe, R07.9 Chest pain, 8:47a Assoc,melany Canales unspecified Hospitalists R06.02 Shortness of breath I20.8 Other forms of angina pectoris I46.9 Cardiac arrest, cause unspecified R55 Syncope and collapse R91.8 Other nonspecific abnormal finding of lung field Office Visit 08/03/2018 [facility] Anya Beebe, R07.9 Chest pain, 8:46a Assocmelany M.D. unspecified Hospitalists I46.9 Cardiac arrest, cause unspecified I20.8 Other forms of angina pectoris Office Visit 08/02/2018 3:06p [facility] Moe Ornelas I46.9 Cardiac arrest, Of Georges Palomares M.D. cause unspecified R55 Syncope and collapse I25.10 [place] heart disease of [place]emat[place] coronary artery w/o [facility] pctrs Office Visit 08/02/2018 8:46a [facility] Anya Mcclainhn, R07.89 Other chest Assoc,melany Canales pain Hospitalists I46.9 Cardiac arrest, cause unspecified I20.8 Other forms of angina pectoris Office Visit 08/01/2018 [facility] Zarina J18.9 Pneumonia, 8:45a Assoc,melany Everett NP unspecified Hospitalists organism R07.89 Other chest pain E78.5 Hyperlipidemia, unspecified Office Visit 01/11/2018 1:00p [facility] Link Mccracken R07.9 Chest painStevenson M.D. unspecified I25.2 Old myocardial infarction I10 Essential (primary) hypertension I25.119 [place] heart disease of [place] cor art w [facility] pctrs E78.00 Pure hypercholesterolemia, unspecified Office Visit 11/05/2017 8:30a [facility] Leslie Alfonso R07.9 Chest pain, Of Georges Aly NUmairPUmair unspecified I10 Essential (primary) hypertension I25.119 [place] heart disease of [place] cor art w [facility] pctrs E78.00 Pure hypercholesterolemia, unspecified Office Visit 09/28/2017 8:20a [facility] Link Mccracken R07.9 Chest pain, Ally Gamino unspecified I42.9 Cardiomyopathy, unspecified I10 Essential (primary) hypertension I25.119 [place] heart disease of [place]ole[place] cor art w [facility] pctrs E78.00 Pure hypercholesterolemia, unspecified Office Visit 08/19/2017 Anu Mccracken I42.9 Cardiomyopathy, 3:40p Cardiology Ally Gamion unspecified I10 Essential (primary) hypertension I25.118 [place] heart disease of [place]ematole[place] cor art w [facility] pctrs E78.00 Pure hypercholesterolemia, unspecified I25.119 [place] heart disease of [place]ematole[place] cor art w [facility] pctrs I44.0 Atrioventricular block, first degree I25.2 Old myocardial infarction Office Visit 09/22/2016 1:00p [facility] RODDY Phelan I25.119 [place] heart Of Hammer Runner disease of habematolel cor art w [facility] pctrs I10 Essential (primary) hypertension R06.00 Dyspnea, unspecified R07.9 Chest pain, unspecified Office Visit 03/25/2016 8:30a [facility] RODDY Phelan I25.119 [place] heart disease of [place]ole[place] cor art w [facility] pctrs I10 Essential (primary) hypertension I42.9 Cardiomyopathy, unspecified Office Visit 01/15/2016 9:00a [facility] Link Mccracken I25.118 [place] heart Ally Gamino disease of habematolel cor art w [facility] pctrs I34.0 Nonrheumatic mitral (valve) insufficiency R06.00 Dyspnea, unspecified Office Visit 03/07/2015 Anu Delgado, 414.01 Coronary 9:00a Cardiology RODDY Atherosclerosis [place] 424.0 Mitral Valve Disorder 272.0 Hypercholesterolemia Pure 401.1 Hypertension Benign 327.23 Obstructive Sleep Apnea Adult & Pediatric Office Visit 01/03/2015 Anu Mccracken 414.01 Coronary 11:30a Eloisa Gamino M.D. Atherosclerosis [place] 272.0 Hypercholesterolemia Pure 250.00 Diabetes Mellitus W/O Compl Type II Or Unspec Controlled 424.0 Mitral Valve Disorder 786.50 Pain Chest Unspec Office Visit 01/02/2014 8:30a [facility] RODDY Phelan 786.50 Pain Chest Unspec 414.01 Coronary Atherosclerosis [place] 272.0 Hypercholesterolemia Pure 250.00 Diabetes Mellitus W/O Compl Type II Or Unspec Controlled Office Visit 11/29/2013 Anu Mccracken 414.01 Coronary 8:40a Cardiology Ally Gamino Atherosclerosis [place] 401.1 Hypertension Benign 786.50 Pain Chest Unspec 272.0 Hypercholesterolemia Pure 250.00 Diabetes Mellitus W/O Compl Type II Or Unspec Controlled Office 12/11/2010 Orthopedic Janneth 354.0 Carpal Tunnel Visit 9:30a Services Of Ally [place] Syndrome C.M.A. Office 06/04/2010 Anu Amita Swann, 414.01 Coronary Visit 10:20a Cardiology D.OUmair Atherosclerosis [place] 412 Myocardial Infarction Old 401.1 Hypertension Benign 592.0 Calculus Of Kidney 272.4 Hyperlipidemia Other Unspec V72.81 Examination Preoperative Cardiovascular Office Visit 11/12/2009 [place] [place] 414.01 Coronary 11:00a Cardiology Ally Gamino Atherosclerosis [place] 786.50 Pain Chest Unspec 412 Myocardial Infarction Old 401.1 Hypertension Benign Plan of Treatment Future Appointment(s):09/13/2018 3:00 pm - Leslie [facility]ly N.PUmair at [facility]09/01/2018 - Link Gamino M.D.I10 Essential (primary) hyoonexbspfrZ57.119 Atherosclerotic heart disease of habematole[place] coronary artery withI46.9 Cardiac arrest, cause ipymynhazqrO48 Syncope and fneskrkwB59.5 Sick sinus syndromeNew Orders:Implant Pacemaker, Ordered: 09/01/18R60.9 Edema, unspecifiedFollow up:luna Nelson 2 -3 weeks. ov JFM 4 mRecommendations:reduce amlodipine to 5 mg qd. luna Nelson 2 -3 weeks.
[2018-10-07 17:41] LABS: ABS Basophils 0 10^3/ul (0-0.2); ABS Eosinophils 0.1 10^3/ul (0-0.6); ABS Monocytes 0.6 10^3/ul (0-0.8); ABS Neutrophils 3.6 10^3/ul (1.5-7.7); ABS Nucleated RBC 0 10^3/ul; Eosinophil % 1.4 %; Hematocrit 37 % (35-47); Hemoglobin 12.4 g/dl (12.0-16.0); Lymphocyte % 32.1 %; Mean Corpuscular HGB Conc 33 g/dl (31-36); Mean Corpuscular Hemoglobin 30 pg (27-31); Mean Corpuscular Volume 88 fL (80-97); Nucleated Red Blood Cells % 0; Platelet Count 163 10^3/ul (150-450); Red Blood Count 4.21 10^6/ul (4.00-5.40); Red Cell Distribution Width 14 % (10.5-15); White Blood Count 6.3 10^3/ul (3.5-10.8)
[2018-10-07 17:54] LABS: Activated Partial Thrombo Time 28.9 seconds (26.0-36.3); INR 0.91 (0.77-1.02)
[2018-10-07 17:59] LABS: Albumin/Globulin Ratio 1.7 (1-3); BUN/Creatinine Ratio 24.2 (8-20); Calcium 9.5 mg/dL (8.6-10.3); EGFR African American 65.1 (>60); EGFR Non-African American 53.8 (>60); Globulin 2.4 g/dL (2-4); Potassium 4.3 mmol/L (3.5-5.0); Total Bilirubin 0.4 mg/dL (0.2-1.0); Total Protein 6.4 g/dL (6.4-8.9)
[2018-10-07 18:02] LABS: Troponin I 0.01 ng/mL (<0.04)
[2018-10-07 18:03] LABS: Myoglobin 40.2 ng/mL (14.3-65.8)
[2018-10-07 18:04] LABS: CKMB ng/mL 1.8 ng/mL (0.6-6.3)
[2018-10-07 18:21] LABS: TSH (Thyroid Stimulating Horm) 1.99 mcIU/mL (0.34-5.60)
[2018-10-07 19:31] LABS: Urine Appearance Clear; Urine Bilirubin Negative (Negative); Urine Blood Negative (Negative); Urine Color Yellow; Urine Glucose Negative (Negative); Urine Ketones Negative (Negative); Urine Nitrite Negative (Negative); Urine Protein Negative (Negative); Urine Specific Gravity 1.018 (1.010-1.030); Urine Urobilinogen Negative (Negative)
[2018-10-07 21:13] VITALS: BP 142/70
== END 2018-10-07 21:18 | disposition home or self-care (01) ==
LOC: ED 16:16
DX: R07.89 Other chest pain (principal); R00.2 Palpitations; Z88.0 Allergy status to penicillin; I25.10 Atherosclerotic heart disease of native coronary artery without angina pectoris; I25.2 Old myocardial infarction; Z95.0 Presence of cardiac pacemaker; Z87.442 Personal history of urinary calculi; I10 Essential (primary) hypertension; Z79.82 Long term (current) use of aspirin
CPT/HCPCS: 36415; 71046; 80053; 81003; 82550; 82553; 83605; 83874; 83880; 84443; 84484; 85025; 85610; 85730; 93005; 99283

== ENCOUNTER 2023-04-05 10:01 | Inpatient (IN) ==
[2023-04-05 11:17] LABS: Urine Appearance Cloudy; Urine Bacteria Absent (Absent); Urine Bilirubin Negative (Negative); Urine Blood 1+ (Negative); Urine Color Yellow; Urine Glucose Negative (Negative); Urine Ketones Negative (Negative); Urine Nitrite Negative (Negative); Urine Protein 1+(30 mg/dL) (Negative); Urine Red Blood Cell 1+(3-5/hpf) (Absent); Urine Specific Gravity 1.006 (1.002-1.030); Urine Squamous Epithelial Cell Present (Absent); Urine Urobilinogen Negative (Negative); Urine White Blood Cell Trace(0-5/hpf) (Absent)
[2023-04-05 11:17] LABS: ABS Eosinophils 0.1 10^3/uL (0.0-0.5); ABS Lymphocytes 1.4 10^3/uL (1.0-4.8); ABS Monocytes 0.5 10^3/uL (0.0-0.9); ABS Nucleated RBC 0.02 10^3/ul; Eosinophil % 1.1 %; Hematocrit 35.2 % (35-45); Hemoglobin 11.5 g/dL (11.5-14.3); Lymphocyte % 23.7 %; Mean Corpuscular Hemoglobin 28.1 pg (27-33); Mean Corpuscular Hgb Conc 32.6 g/dL (31-36); Mean Corpuscular Volume 86.2 fL (80-97); Mean Platelet Volume 7.9 fL (7.5-11.2); Nucleated Red Blood Cells % 0.3 /100 WBC (0.0-0.4); Platelet Count 220 10^3/uL (150-450); Red Blood Count 4.09 10^6/uL (3.63-4.92); Red Cell Distribution Width 17.4 % (12-17)
[2023-04-05] MEDS ORDERED: Furosemide 40 mg/4 ml IV VIAL IV SLOW PU ONE (11:23)
[2023-04-05 11:32] LABS: ALT 11 U/L (7-52); Albumin 3.8 g/dL (3.2-5.2); Albumin/Globulin Ratio 1.4 (1-3); Alkaline Phosphatase 77 U/L (35-149); Blood Urea Nitrogen 21 mg/dL (6-24); CO2 Carbon Dioxide 22 mmol/L (22-32); Chloride 111 mmol/L (101-111); Creatinine, Serum 0.96 mg/dL (0.51-0.95); Globulin 2.7 g/dL (2-4); Glucose 102 mg/dL (70-100); Lipase 16 U/L (11.0-82.0); Magnesium 1.7 mg/dL (1.9-2.7); Sodium 142 mmol/L (135-145); Total Protein 6.5 g/dL (6.4-8.9); eGFR CKD-EPI 57.6 (>60)
[2023-04-05 11:34] LABS: Anion Gap 9 mmol/L (2-16)
[2023-04-05 11:39] LABS: High Sens Troponin Baseline 32 pg/mL (<15)
[2023-04-05 11:48] LABS: INR 1.98 (0.88-1.18)
[2023-04-05 12:57] LABS: High Sensitivity Troponin 1 Hr 33 pg/mL (<15)
[2023-04-05] MEDS ORDERED: Iodixanol (CONTRAST) 320 MG/ML 100 ML SDV IV ONE (13:45)
[2023-04-05 13:47] LABS: Potassium Redraw 3.9 mmol/L (3.5-5.0)
[2023-04-05 15:40] LABS: ABS Eosinophils 0.1 10^3/uL (0.0-0.5); ABS Lymphocytes 2.4 10^3/uL (1.0-4.8); ABS Monocytes 0.5 10^3/uL (0.0-0.9); ABS Neutrophils 3.8 10^3/uL (1.5-7.6); Eosinophil % 1.2 %; Hematocrit 37.9 % (35-45); Hemoglobin 12.4 g/dL (11.5-14.3); Lymphocyte % 34.8 %; Mean Corpuscular Hgb Conc 32.6 g/dL (31-36); Mean Corpuscular Volume 85.9 fL (80-97); Mean Platelet Volume 7.9 fL (7.5-11.2); Platelet Count 248 10^3/uL (150-450); Red Blood Count 4.41 10^6/uL (3.63-4.92); Red Cell Distribution Width 17.3 % (12-17); White Blood Count 6.8 10^3/uL (3.8-11.8)
[2023-04-05] MEDS ORDERED: Heparin 5000 UNITS/ML 1 mL VIAL IV SCH (16:00)
[2023-04-05 16:08] LABS: Creatinine, Serum 1.06 mg/dL (0.51-0.95); eGFR CKD-EPI 51.2 (>60)
[2023-04-05] MEDS: Heparin DRIP 25,000 UNITS BAG 25,000 UNITS/500 ML BAG IV SCH (16:25)
[2023-04-05] MEDS ORDERED: Magnesium Sulfate IV 3 GM in NS 0.9% 100 ml BAG 100 ML IVPB ONE (17:26)
[2023-04-05] MEDS ORDERED: Magnesium Sulfate 2 gm BAG 2 GM/50 ML BAG IV ONE (18:00)
[2023-04-05] MEDS ORDERED: Magnesium Sulfate IV 1GM/100ML 1 GM/100 ML BAG IV ONE (19:00)
[2023-04-06 05:45] LABS: ABS Eosinophils 0.1 10^3/uL (0.0-0.5); ABS Lymphocytes 2.1 10^3/uL (1.0-4.8); ABS Monocytes 0.5 10^3/uL (0.0-0.9); ABS Neutrophils 2.4 10^3/uL (1.5-7.6); ABS Nucleated RBC 0.01 10^3/ul; Eosinophil % 2.1 %; Hematocrit 32.6 % (35-45); Hemoglobin 10.9 g/dL (11.5-14.3); Lymphocyte % 40.9 %; Mean Corpuscular Hemoglobin 28.4 pg (27-33); Mean Corpuscular Hgb Conc 33.6 g/dL (31-36); Mean Corpuscular Volume 84.4 fL (80-97); Mean Platelet Volume 7.9 fL (7.5-11.2); Nucleated Red Blood Cells % 0.3 /100 WBC (0.0-0.4); Platelet Count 200 10^3/uL (150-450); Red Blood Count 3.86 10^6/uL (3.63-4.92); Red Cell Distribution Width 17.1 % (12-17); White Blood Count 5.1 10^3/uL (3.8-11.8)
[2023-04-06 06:01] LABS: Calcium 8.9 mg/dL (8.6-10.3); Creatinine, Serum 1.1 mg/dL (0.51-0.95); Potassium 3.4 mmol/L (3.5-5.0); eGFR CKD-EPI 48.9 (>60)
[2023-04-06] MEDS ORDERED: Potassium Chlor 20 meq TAB.ER PO ONE (07:48)
[2023-04-06] MEDS ORDERED: Warfarin per PHARMACY **NOTE FOLLOW UP SCH (12:00)
[2023-04-06 13:11] LABS: Activated Partial Thrombo Time 99.1 seconds (26.0-38.0); INR 1.4 (0.88-1.18)
[2023-04-06] MEDS ORDERED: Sulfur Hexaflouride MICROSPHR 25 MG VIAL ONE (14:01)
[2023-04-06] MEDS ORDERED: LORazepam 2 mg VIAL 1 ml ONE (14:38)
[2023-04-06 15:19] LABS: ABS Eosinophils 0.1 10^3/uL (0.0-0.5); ABS Lymphocytes 1.9 10^3/uL (1.0-4.8); ABS Monocytes 0.4 10^3/uL (0.0-0.9); ABS Neutrophils 3.5 10^3/uL (1.5-7.6); Eosinophil % 1.1 %; Hematocrit 34.1 % (35-45); Hemoglobin 11.4 g/dL (11.5-14.3); Lymphocyte % 32.3 %; Mean Corpuscular Hemoglobin 28.4 pg (27-33); Mean Corpuscular Hgb Conc 33.3 g/dL (31-36); Mean Corpuscular Volume 85.4 fL (80-97); Mean Platelet Volume 7.8 fL (7.5-11.2); Platelet Count 225 10^3/uL (150-450); Red Blood Count 3.99 10^6/uL (3.63-4.92); Red Cell Distribution Width 17.7 % (12-17); White Blood Count 5.9 10^3/uL (3.8-11.8)
[2023-04-06 15:43] LABS: Albumin 3.8 g/dL (3.2-5.2); Albumin/Globulin Ratio 1.4 (1-3); Calcium 8.9 mg/dL (8.6-10.3); Creatinine, Serum 1.01 mg/dL (0.51-0.95); Globulin 2.7 g/dL (2-4); Total Bilirubin 0.8 mg/dL (0.2-1.0); Total Protein 6.5 g/dL (6.4-8.9); eGFR CKD-EPI 54.2 (>60)
[2023-04-06] MEDS: Warfarin DAILY REMINDER **NOTE FOLLOW UP SCH (19:09)
[2023-04-06] MEDS: Heparin DRIP 25,000 UNITS BAG 25,000 UNITS/500 ML BAG IV SCH (19:13)
[2023-04-07 04:47] LABS: ABS Eosinophils 0.1 10^3/uL (0.0-0.5); ABS Lymphocytes 1.9 10^3/uL (1.0-4.8); ABS Monocytes 0.5 10^3/uL (0.0-0.9); ABS Neutrophils 2.6 10^3/uL (1.5-7.6); Eosinophil % 1.7 %; Hematocrit 30.4 % (35-45); Hemoglobin 10.3 g/dL (11.5-14.3); Lymphocyte % 37.8 %; Mean Corpuscular Hemoglobin 28.8 pg (27-33); Mean Corpuscular Hgb Conc 33.9 g/dL (31-36); Mean Corpuscular Volume 84.8 fL (80-97); Mean Platelet Volume 7.6 fL (7.5-11.2); Platelet Count 189 10^3/uL (150-450); Red Blood Count 3.58 10^6/uL (3.63-4.92); White Blood Count 5.1 10^3/uL (3.8-11.8)
[2023-04-07 04:52] LABS: INR 1.39 (0.88-1.18)
[2023-04-07 05:02] LABS: Creatinine, Serum 1.04 mg/dL (0.51-0.95); eGFR CKD-EPI 52.3 (>60)
[2023-04-07] MEDS: Warfarin DAILY REMINDER **NOTE FOLLOW UP SCH (17:09)
[2023-04-08 05:50] LABS: ABS Eosinophils 0.1 10^3/uL (0.0-0.5); ABS Monocytes 0.5 10^3/uL (0.0-0.9); ABS Neutrophils 2.3 10^3/uL (1.5-7.6); ABS Nucleated RBC 0.01 10^3/ul; Eosinophil % 2.4 %; Hematocrit 31.9 % (35-45); Hemoglobin 10.6 g/dL (11.5-14.3); Lymphocyte % 39.9 %; Mean Corpuscular Hemoglobin 28.5 pg (27-33); Mean Corpuscular Hgb Conc 33.3 g/dL (31-36); Mean Corpuscular Volume 85.7 fL (80-97); Mean Platelet Volume 7.8 fL (7.5-11.2); Nucleated Red Blood Cells % 0.2 /100 WBC (0.0-0.4); Platelet Count 185 10^3/uL (150-450); Red Blood Count 3.73 10^6/uL (3.63-4.92); Red Cell Distribution Width 17.1 % (12-17); White Blood Count 4.9 10^3/uL (3.8-11.8)
[2023-04-08 06:02] LABS: INR 1.36 (0.88-1.18)
[2023-04-08] MEDS: Heparin DRIP 25,000 UNITS BAG 25,000 UNITS/500 ML BAG IV SCH (07:43)
[2023-04-08] MEDS ORDERED: Furosemide 40 mg/4 ml IV VIAL IV ONE (10:12)
[2023-04-08] MEDS ORDERED: Furosemide 20 mg/2 ml IV VIAL IV ONE (10:18)
[2023-04-08] MEDS: Warfarin DAILY REMINDER **NOTE FOLLOW UP SCH (16:47)
[2023-04-08] MEDS ORDERED: Senna TAB 8.6 mg TAB PO PRN (16:56)
[2023-04-09 05:59] LABS: ABS Eosinophils 0.1 10^3/uL (0.0-0.5); ABS Lymphocytes 2.3 10^3/uL (1.0-4.8); ABS Monocytes 0.5 10^3/uL (0.0-0.9); Eosinophil % 2.2 %; Hematocrit 32.4 % (35-45); Hemoglobin 10.7 g/dL (11.5-14.3); Lymphocyte % 38.3 %; Mean Corpuscular Hemoglobin 28.4 pg (27-33); Mean Corpuscular Hgb Conc 32.9 g/dL (31-36); Mean Corpuscular Volume 86.2 fL (80-97); Mean Platelet Volume 8.1 fL (7.5-11.2); Platelet Count 193 10^3/uL (150-450); Red Blood Count 3.76 10^6/uL (3.63-4.92); White Blood Count 5.9 10^3/uL (3.8-11.8)
[2023-04-09 06:12] LABS: Activated Partial Thrombo Time 79.8 seconds (26.0-38.0); INR 1.76 (0.88-1.18)
[2023-04-09 06:20] LABS: Calcium 8.7 mg/dL (8.6-10.3); Creatinine, Serum 0.92 mg/dL (0.51-0.95); Magnesium 1.6 mg/dL (1.9-2.7); Potassium 3.9 mmol/L (3.5-5.0); eGFR CKD-EPI 60.6 (>60)
[2023-04-09] MEDS ORDERED: Magnesium Sulfate IV 3 GM in NS 0.9% 100 ml BAG 100 ML IVPB ONE (07:27)
[2023-04-09] MEDS ORDERED: Potassium Chlor 20 meq TAB.ER PO ONE (07:27)
[2023-04-09] MEDS ORDERED: Furosemide 40 mg/4 ml IV VIAL IV SLOW PU ONE (09:33)
[2023-04-09] MEDS ORDERED: Furosemide 20 mg/2 ml IV VIAL IV ONE (15:28)
[2023-04-09] MEDS: Heparin DRIP 25,000 UNITS BAG 25,000 UNITS/500 ML BAG IV SCH (17:16)
[2023-04-09 18:15] LABS: Beta 2 Glycoprotein IgG <9.4 SGU
[2023-04-09 18:29] LABS: Phospholipid Ab IgG < 9.4 GPL; Phospholipid Ab IgM, S < 9.4 MPL
[2023-04-10 05:46] LABS: ABS Eosinophils 0.1 10^3/uL (0.0-0.5); ABS Lymphocytes 2.3 10^3/uL (1.0-4.8); ABS Monocytes 0.5 10^3/uL (0.0-0.9); ABS Neutrophils 3.6 10^3/uL (1.5-7.6); ABS Nucleated RBC 0.01 10^3/ul; Eosinophil % 1.7 %; Hemoglobin 11.4 g/dL (11.5-14.3); Lymphocyte % 35.4 %; Mean Corpuscular Hemoglobin 27.8 pg (27-33); Mean Corpuscular Hgb Conc 32.5 g/dL (31-36); Mean Corpuscular Volume 85.5 fL (80-97); Mean Platelet Volume 7.8 fL (7.5-11.2); Nucleated Red Blood Cells % 0.1 /100 WBC (0.0-0.4); Platelet Count 206 10^3/uL (150-450); Red Cell Distribution Width 16.6 % (12-17); White Blood Count 6.5 10^3/uL (3.8-11.8)
[2023-04-10 06:00] LABS: Creatinine, Serum 0.97 mg/dL (0.51-0.95); Potassium 4.2 mmol/L (3.5-5.0); eGFR CKD-EPI 56.9 (>60)
[2023-04-10 06:19] LABS: INR 2.89 (0.88-1.18)
[2023-04-10 06:21] LABS: Activated Partial Thrombo Time 145.8 seconds (26.0-38.0)
[2023-04-10] MEDS: Warfarin DAILY REMINDER **NOTE FOLLOW UP SCH ×2 (08:43→18:25)
[2023-04-10] MEDS: Furosemide 20 mg/2 ml IV VIAL IV SLOW PU ONE ×2 (08:47→10:05)
[2023-04-11 05:54] LABS: Activated Partial Thrombo Time 78.6 seconds (26.0-38.0); INR 3.36 (0.88-1.18)
[2023-04-11 06:03] LABS: Creatinine, Serum 0.99 mg/dL (0.51-0.95); Magnesium 1.9 mg/dL (1.9-2.7); Potassium 4.4 mmol/L (3.5-5.0); eGFR CKD-EPI 55.5 (>60)
[2023-04-11 11:26] VITALS: BP 109/48
== END 2023-04-11 12:30 | disposition home health service (06) | DRG 134 ==
LOC: EDHOLD 10:01 → ED 10:01 → SUATTDRO 15:28 → MED 16:40 → ICU 04-06 15:04 → MEDTELE 04-07 18:25
PROVIDERS: ADMIT Internal Medicine; ATTEND Family Medicine

== ENCOUNTER 2023-09-14 16:42 | Observation (INO) ==
[2023-09-14 18:22] LABS: ABS Lymphocytes 1.6 10^3/uL (1.0-4.8); ABS Monocytes 1.4 10^3/uL (0.0-0.9); ABS Nucleated RBC 0.02 10^3/ul; Eosinophil % 0.2 %; Hematocrit 34.6 % (35-45); Hemoglobin 11.4 g/dL (11.5-14.3); Lymphocyte % 14.7 %; Mean Corpuscular Hemoglobin 28.8 pg (27-33); Mean Corpuscular Hgb Conc 32.9 g/dL (31-36); Mean Corpuscular Volume 87.6 fL (80-97); Mean Platelet Volume 8.4 fL (7.5-11.2); Nucleated Red Blood Cells % 0.2 %/100WBC (0.0-0.8); Platelet Count 224 10^3/uL (150-450); Red Blood Count 3.95 10^6/uL (3.63-4.92); Red Cell Distribution Width 15.6 % (12-17); White Blood Count 11.1 10^3/uL (3.8-11.8)
[2023-09-14 18:29] LABS: Urine Appearance Cloudy; Urine Bilirubin Negative (Negative); Urine Blood 2+ (Negative); Urine Color Amber; Urine Glucose Negative (Negative); Urine Ketones Negative (Negative); Urine Nitrite Negative (Negative); Urine Protein 2+(100 mg/dL) (Negative); Urine Specific Gravity 1.021 (1.002-1.030); Urine Urobilinogen Negative (Negative)
[2023-09-14 18:38] LABS: Urine Bacteria 3+ (Absent); Urine Red Blood Cell 2+(6-10/hpf) (Absent); Urine Squamous Epithelial Cell Present (Absent); Urine White Blood Cell 2+(11-20/hpf) (Absent)
[2023-09-14 18:42] LABS: Albumin 3.8 g/dL (3.2-5.2); Albumin/Globulin Ratio 1.1 (1-3); C Reactive Protein 189.82 mg/L (<8.01); Calcium 8.9 mg/dL (8.6-10.3); Creatinine, Serum 1.25 mg/dL (0.51-0.95); Globulin 3.6 g/dL (2-4); Potassium 3.8 mmol/L (3.5-5.0); Total Bilirubin 0.7 mg/dL (0.2-1.0); Total Protein 7.4 g/dL (6.4-8.9)
[2023-09-15] MEDS ORDERED: Albuterol/Ipratropium NEB.SOL (2.5/0.5 MG) 3 ML NEB.SOLN INH ONE (00:33)
[2023-09-15] MEDS ORDERED: DOXYcycline 100 MG in NS 0.9% 250 ml 250 ML IVPB ONE (00:36)
[2023-09-15] MEDS ORDERED: cefTRIAXone 1 gm/50 mL D5W 1 GM/50 ML BAG IV ONE (01:10)
[2023-09-15 02:33] LABS: INR 2.42 (0.83-1.13)
[2023-09-15] MEDS ORDERED: Warfarin per PHARMACY **NOTE FOLLOW UP SCH (03:00)
[2023-09-15 06:43] LABS: ABS Lymphocytes 1.8 10^3/uL (1.0-4.8); ABS Monocytes 1.3 10^3/uL (0.0-0.9); Eosinophil % 0.2 %; Hematocrit 32.5 % (35-45); Hemoglobin 10.6 g/dL (11.5-14.3); Lymphocyte % 16.1 %; Mean Corpuscular Hemoglobin 28.7 pg (27-33); Mean Corpuscular Hgb Conc 32.7 g/dL (31-36); Mean Corpuscular Volume 87.7 fL (80-97); Mean Platelet Volume 8.3 fL (7.5-11.2); Platelet Count 208 10^3/uL (150-450); Red Blood Count 3.71 10^6/uL (3.63-4.92); Red Cell Distribution Width 15.5 % (12-17); White Blood Count 11.1 10^3/uL (3.8-11.8)
[2023-09-15 06:49] LABS: INR 2.44 (0.83-1.13)
[2023-09-15 06:59] LABS: Calcium 8.7 mg/dL (8.6-10.3); Creatinine, Serum 0.97 mg/dL (0.51-0.95); Potassium 3.5 mmol/L (3.5-5.0); eGFR CKD-EPI 56.9 (>60)
[2023-09-15] MEDS ORDERED: Cholestyramine Resin 4 GM POWDER PO SCH (12:00)
[2023-09-15] MEDS: DOXYcycline 100 MG in NS 0.9% 250 ml 250 ML IVPB SCH (15:14)
[2023-09-15] MEDS: Warfarin DAILY REMINDER **NOTE FOLLOW UP SCH (20:18)
[2023-09-15] MEDS: Cholestyramine Resin 4 GM POWDER PO SCH (21:58)
[2023-09-16] MEDS ORDERED: cefTRIAXone 1 gm/50 mL D5W 1 GM/50 ML BAG IV SCH (01:00)
[2023-09-16] MEDS: DOXYcycline 100 MG in NS 0.9% 250 ml 250 ML IVPB SCH ×2 (01:37→13:32)
[2023-09-16 06:07] LABS: Hematocrit 32.1 % (35-45); Hemoglobin 10.5 g/dL (11.5-14.3); Mean Corpuscular Hemoglobin 28.4 pg (27-33); Mean Corpuscular Hgb Conc 32.8 g/dL (31-36); Mean Corpuscular Volume 86.7 fL (80-97); Mean Platelet Volume 8.4 fL (7.5-11.2); Platelet Count 215 10^3/uL (150-450); Red Cell Distribution Width 15.4 % (12-17); White Blood Count 8.6 10^3/uL (3.8-11.8)
[2023-09-16 06:16] LABS: INR 2.35 (0.83-1.13)
[2023-09-16 06:24] LABS: Calcium 8.5 mg/dL (8.6-10.3); Creatinine, Serum 0.91 mg/dL (0.51-0.95); Potassium 3.9 mmol/L (3.5-5.0); eGFR CKD-EPI 61.4 (>60)
[2023-09-16] MEDS: Cholestyramine Resin 4 GM POWDER PO SCH (12:19)
[2023-09-16 13:43] VITALS: BP 149/64
[2023-09-16] MEDS: Warfarin DAILY REMINDER **NOTE FOLLOW UP SCH (16:14)
== END 2023-09-16 16:35 | disposition home or self-care (01) ==
LOC: EDHOLD 16:42 → ED 16:42 → SUATTDRO 09-15 02:14 → EDHOLD 09-15 11:18 → MEDTELE 09-15 12:07
PROVIDERS: ADMIT Internal Medicine; ATTEND Internal Medicine

== ENCOUNTER 2024-09-06 11:04 | Inpatient (IN) ==
[2024-09-06] MEDS: Iodixanol 320 (CONTRAST) 100 ML SDV IV ONE (11:37)
[2024-09-06 11:44] LABS: ABS Lymphocytes 1.6 10^3/uL (1.0-4.8); ABS Monocytes 0.4 10^3/uL (0.0-0.9); ABS Neutrophils 4.5 10^3/uL (1.5-7.6); Eosinophil % 0.7 %; Hematocrit 40.7 % (35-45); Hemoglobin 13.3 g/dL (11.5-14.3); Lymphocyte % 24.6 %; Mean Corpuscular Hemoglobin 28.9 pg (27-33); Mean Corpuscular Hgb Conc 32.6 g/dL (31-36); Mean Corpuscular Volume 88.5 fL (80-97); Mean Platelet Volume 7.8 fL (7.5-11.2); Platelet Count 184 10^3/uL (150-450); Red Blood Count 4.59 10^6/uL (3.63-4.92); Red Cell Distribution Width 17.1 % (12-17); White Blood Count 6.6 10^3/uL (3.8-11.8)
[2024-09-06 11:52] LABS: Activated Partial Thrombo Time 36.2 seconds (26.0-38.0); INR 2.57 (0.85-1.14)
[2024-09-06 12:06] LABS: Albumin/Globulin Ratio 1.7 (1-3); Calcium 9.1 mg/dL (8.6-10.3); Creatinine, Serum 1.36 mg/dL (0.51-0.95); Globulin 2.3 g/dL (2-4); Indirect Bilirubin 0.5 mg/dL (0.3-1.0); Total Bilirubin 0.5 mg/dL (0.2-1.0); Total Protein 6.3 g/dL (6.4-8.9); eGFR CKD-EPI 37.7 (>60)
[2024-09-06 13:04] LABS: High Sensitivity Troponin 1 Hr 39 pg/mL (<15)
[2024-09-06 13:39] LABS: Urine Appearance Clear; Urine Bilirubin Negative (Negative); Urine Blood Negative (Negative); Urine Color Light-Yellow; Urine Glucose Negative (Negative); Urine Ketones Negative (Negative); Urine Nitrite Negative (Negative); Urine Protein Trace (Negative); Urine Specific Gravity 1.038 (1.002-1.030); Urine Urobilinogen Negative (Negative)
[2024-09-06 13:52] LABS: Urine Bacteria 1+ /HPF (Absent); Urine Red Blood Cell Trace(0-2/hpf) /HPF (0-Trace); Urine Squamous Epithelial Cell Present /HPF (Absent); Urine White Blood Cell Trace(0-5/hpf) /HPF (0-Trace)
[2024-09-06] MEDS ORDERED: Senna TAB 8.6 mg TAB PO PRN (15:24)
[2024-09-06] MEDS ORDERED: Warfarin per PHARMACY **NOTE FOLLOW UP SCH ×2 (17:00→18:37)
[2024-09-07 06:24] LABS: ABS Eosinophils 0.1 10^3/uL (0.0-0.5); ABS Lymphocytes 2.2 10^3/uL (1.0-4.8); ABS Monocytes 0.8 10^3/uL (0.0-0.9); ABS Neutrophils 4.9 10^3/uL (1.5-7.6); ABS Nucleated RBC 0.01 10^3/ul; Hematocrit 38.3 % (35-45); Hemoglobin 13.1 g/dL (11.5-14.3); Lymphocyte % 27.6 %; Mean Corpuscular Hemoglobin 29.8 pg (27-33); Mean Corpuscular Hgb Conc 34.2 g/dL (31-36); Mean Corpuscular Volume 87.1 fL (80-97); Mean Platelet Volume 7.8 fL (7.5-11.2); Nucleated Red Blood Cells % 0.1 %/100WBC (0.0-0.8); Platelet Count 172 10^3/uL (150-450); Red Cell Distribution Width 16.6 % (12-17)
[2024-09-07 06:32] LABS: INR 2.25 (0.85-1.14)
[2024-09-07 07:08] LABS: Calcium 9.4 mg/dL (8.6-10.3); Creatinine, Serum 1.08 mg/dL (0.51-0.95); Magnesium 1.6 mg/dL (1.9-2.7); Potassium 5.2 mmol/L (3.5-5.0); eGFR CKD-EPI 49.7 (>60)
[2024-09-07] MEDS: cefTRIAXone 2 gm/50 mL D5W 2 GM/50 ML BAG IV SCH (12:51)
[2024-09-07] MEDS: Cholestyramine Resin 4 GM POWDER PO SCH (14:58)
[2024-09-07] MEDS: Enoxaparin 80 MG/0.8 ML SYR SUBCUT SCH (16:50)
[2024-09-07] MEDS: NS 0.9% 1000 ml BAG 1,000 ML IV SCH (17:49)
[2024-09-07] MEDS: Magnesium Sulfate 2 gm BAG 2 GM/50 ML BAG IVPB ONE (18:00)
[2024-09-07] MEDS: Metoprolol Tartrate 5 mg VIAL 5 ml VIAL (1 mg/ml) IV SCH ×2 (19:53→20:05)
[2024-09-07] MEDS: Magnesium Sulfate IV 1GM/100ML 1 GM/100 ML BAG IV ONE (20:00)
[2024-09-08 06:09] LABS: ABS Eosinophils 0.1 10^3/uL (0.0-0.5); ABS Lymphocytes 2.2 10^3/uL (1.0-4.8); ABS Monocytes 0.7 10^3/uL (0.0-0.9); ABS Neutrophils 4.5 10^3/uL (1.5-7.6); ABS Nucleated RBC 0.01 10^3/ul; Eosinophil % 1.3 %; Hematocrit 39.5 % (35-45); Hemoglobin 13.2 g/dL (11.5-14.3); Lymphocyte % 29.2 %; Mean Corpuscular Hemoglobin 29.6 pg (27-33); Mean Corpuscular Hgb Conc 33.5 g/dL (31-36); Mean Corpuscular Volume 88.4 fL (80-97); Mean Platelet Volume 8.1 fL (7.5-11.2); Nucleated Red Blood Cells % 0.1 %/100WBC (0.0-0.8); Platelet Count 168 10^3/uL (150-450); Red Blood Count 4.47 10^6/uL (3.63-4.92); Red Cell Distribution Width 17.1 % (12-17); White Blood Count 7.5 10^3/uL (3.8-11.8)
[2024-09-08] MEDS: Levothyroxine 100 MCG/5 ML VIAL IV SCH (06:25)
[2024-09-08 06:37] LABS: INR 1.89 (0.85-1.14)
[2024-09-08 07:20] LABS: Calcium 8.7 mg/dL (8.6-10.3); Creatinine, Serum 1.02 mg/dL (0.51-0.95); Magnesium 2.3 mg/dL (1.9-2.7); Potassium 5.5 mmol/L (3.5-5.0); eGFR CKD-EPI 53.2 (>60)
[2024-09-08] MEDS: NS 0.9% 1000 ml BAG 1,000 ML IV SCH (09:52)
[2024-09-08] MEDS: Sulfur Hexaflouride MICROSPHR 25 MG VIAL IV PRN (10:23)
[2024-09-08] MEDS ORDERED: Warfarin per PHARMACY **NOTE FOLLOW UP SCH (15:00)
[2024-09-09 06:01] LABS: INR 1.71 (0.85-1.14)
[2024-09-09 06:03] LABS: ABS Eosinophils 0.1 10^3/uL (0.0-0.5); ABS Lymphocytes 2.4 10^3/uL (1.0-4.8); ABS Monocytes 0.6 10^3/uL (0.0-0.9); ABS Neutrophils 3.2 10^3/uL (1.5-7.6); Eosinophil % 1.1 %; Hematocrit 40.7 % (35-45); Hemoglobin 13.3 g/dL (11.5-14.3); Lymphocyte % 37.8 %; Mean Corpuscular Hemoglobin 29.1 pg (27-33); Mean Corpuscular Hgb Conc 32.8 g/dL (31-36); Mean Corpuscular Volume 88.8 fL (80-97); Mean Platelet Volume 7.9 fL (7.5-11.2); Platelet Count 141 10^3/uL (150-450); Red Blood Count 4.58 10^6/uL (3.63-4.92); Red Cell Distribution Width 16.8 % (12-17); White Blood Count 6.3 10^3/uL (3.8-11.8)
[2024-09-09 06:36] LABS: Calcium 8.6 mg/dL (8.6-10.3); Creatinine, Serum 0.99 mg/dL (0.51-0.95); Potassium 5.1 mmol/L (3.5-5.0); eGFR CKD-EPI 55.2 (>60)
[2024-09-09] MEDS: Cholestyramine Resin 4 GM POWDER PO SCH (10:05)
[2024-09-09] MEDS: Furosemide 20 mg/2 ml IV VIAL IV ONE (12:56)
[2024-09-09] MEDS: BENZOCAINE/MENTHOL (ORAJEL)20% 1 APPLIC TOP.GEL TOPICAL PRN (18:38)
[2024-09-10 06:08] LABS: INR 1.88 (0.85-1.14)
[2024-09-10 06:15] LABS: Calcium 9.1 mg/dL (8.6-10.3); Creatinine, Serum 1.27 mg/dL (0.51-0.95); Magnesium 1.7 mg/dL (1.9-2.7); Potassium 4.9 mmol/L (3.5-5.0); eGFR CKD-EPI 40.9 (>60)
[2024-09-10] MEDS: Influenza Vaccine *TRI* 2024-25* 0.5 ML SYRINGE IM ONE (10:06)
[2024-09-10] MEDS: Warfarin DAILY REMINDER **NOTE FOLLOW UP SCH (17:15)
[2024-09-10] MEDS: Magnesium Sulfate IV 1GM/100ML 1 GM/100 ML BAG IV ONE (20:06)
[2024-09-10] MEDS: levETIRAcetam IV 1,500 MG in NS 0.9% 100 ml BAG 100 ML IVPB ONE (20:47)
[2024-09-11 06:14] LABS: INR 2.67 (0.85-1.14)
[2024-09-11 06:51] LABS: Calcium 9.1 mg/dL (8.6-10.3); Creatinine, Serum 1.23 mg/dL (0.51-0.95); Potassium 4.5 mmol/L (3.5-5.0); eGFR CKD-EPI 42.5 (>60)
[2024-09-12 06:22] LABS: INR 3.19 (0.85-1.14)
[2024-09-12] MEDS: Furosemide 40 mg/4 ml IV VIAL IV ONE (18:12)
[2024-09-12] MEDS: Morphine 2 MG/ML SYRINGE IV ONE (18:13)
[2024-09-13] MEDS: Droperidol 5 MG/2 ML 2 ML VIAL IV ONE (03:01)
[2024-09-13] MEDS: Haloperidol 5 mg/ml SDV IV/IM 5 MG/ML AMP IV SLOW PU ONE (03:05)
[2024-09-13 06:33] LABS: INR 2.55 (0.85-1.14)
[2024-09-13 06:41] LABS: Calcium 9.2 mg/dL (8.6-10.3); Creatinine, Serum 1.39 mg/dL (0.51-0.95); Magnesium 1.7 mg/dL (1.9-2.7); Potassium 4.8 mmol/L (3.5-5.0); eGFR CKD-EPI 36.7 (>60)
[2024-09-13] MEDS: Magnesium Sulfate 2 gm BAG 2 GM/50 ML BAG IVPB ONE (08:57)
[2024-09-14] MEDS ORDERED: Acetaminophen IV 1 GM/100ML 1,000 MG/100 ML BAG IV PRN (02:11)
[2024-09-14 06:50] LABS: Calcium 9.1 mg/dL (8.6-10.3); Creatinine, Serum 1.45 mg/dL (0.51-0.95); Magnesium 2.3 mg/dL (1.9-2.7); Potassium 4.8 mmol/L (3.5-5.0); eGFR CKD-EPI 34.9 (>60)
[2024-09-14 06:53] LABS: INR 2.01 (0.85-1.14)
[2024-09-14] MEDS: NS 0.9% 500 ml BAG 500 ML IV ONE (14:15)
[2024-09-15 07:37] LABS: INR 2.01 (0.85-1.14)
[2024-09-15 07:44] LABS: Calcium 8.7 mg/dL (8.6-10.3); Creatinine, Serum 1.31 mg/dL (0.51-0.95); Magnesium 2.1 mg/dL (1.9-2.7); Potassium 4.7 mmol/L (3.5-5.0); eGFR CKD-EPI 39.4 (>60)
[2024-09-15 14:27] VITALS: BP 130/115
== END 2024-09-15 03:55 | DRG 64 ==
LOC: ED 11:04 → EDHOLD 11:04 → MEDTELE 17:32 → SUATTDRO 09-09 09:49
PROVIDERS: ADMIT Student in an Organized Health Care Education/Training Program; ATTEND Internal Medicine

== ENCOUNTER 2024-09-15 10:07 | Inpatient (IN) ==
[2024-09-16 06:14] LABS: INR 2.29 (0.85-1.14)
[2024-09-16] MEDS: Aspirin EC 81 mg TAB.EC (enteric coated) PO SCH (08:17)
[2024-09-16] MEDS: Cholestyramine Resin 4 GM POWDER PO SCH (10:05)
[2024-09-17] MEDS: Senna TAB 8.6 mg TAB PO PRN (15:43)
[2024-09-17] MEDS ORDERED: Magnesium Hydroxide LIQ 30 ML UDC PO PRN (15:49)
[2024-09-17] MEDS ORDERED: Polyethylene Glycol 3350 17 GM PACKET PO PRN (15:49)
[2024-09-18 06:19] LABS: ABS Basophils 0.1 10^3/uL (0.0-0.1); ABS Eosinophils 0.1 10^3/uL (0.0-0.5); ABS Lymphocytes 2.5 10^3/uL (1.0-4.8); ABS Monocytes 0.8 10^3/uL (0.0-0.9); ABS Neutrophils 4.6 10^3/uL (1.5-7.6); Eosinophil % 1.4 %; Hemoglobin 11.7 g/dL (11.5-14.3); Lymphocyte % 31.3 %; Mean Corpuscular Hemoglobin 29.3 pg (27-33); Mean Corpuscular Hgb Conc 33.5 g/dL (31-36); Mean Corpuscular Volume 87.4 fL (80-97); Mean Platelet Volume 8.3 fL (7.5-11.2); Nucleated Red Blood Cells % 0.1 %/100WBC (0.0-0.8); Platelet Count 220 10^3/uL (150-450); Red Cell Distribution Width 16.3 % (12-17); White Blood Count 8.1 10^3/uL (3.8-11.8)
[2024-09-18 06:20] LABS: INR 4.98 (0.85-1.14)
[2024-09-18 06:40] LABS: Albumin 3.6 g/dL (3.5-5.7); Albumin/Globulin Ratio 1.6 (1-3); Calcium 9.2 mg/dL (8.6-10.3); Creatinine, Serum 1.15 mg/dL (0.51-0.95); Globulin 2.2 g/dL (2-4); Total Bilirubin 0.4 mg/dL (0.2-1.0); Total Protein 5.8 g/dL (6.4-8.9); eGFR CKD-EPI 46.1 (>60)
[2024-09-19 06:39] LABS: INR 4.17 (0.85-1.14)
[2024-09-20 06:30] LABS: INR 3.18 (0.85-1.14)
[2024-09-22 07:04] LABS: INR 2.33 (0.85-1.14)
[2024-09-23 06:12] LABS: INR 2.94 (0.85-1.14)
[2024-09-24 06:16] LABS: INR 2.9 (0.85-1.14)
[2024-09-25 06:44] LABS: ABS Lymphocytes 2.4 10^3/uL (1.0-4.8); ABS Monocytes 1.1 10^3/uL (0.0-0.9); ABS Neutrophils 10.9 10^3/uL (1.5-7.6); Eosinophil % 0.2 %; Hematocrit 36.4 % (35-45); Hemoglobin 12.3 g/dL (11.5-14.3); Lymphocyte % 16.5 %; Mean Corpuscular Hemoglobin 29.5 pg (27-33); Mean Corpuscular Hgb Conc 33.8 g/dL (31-36); Mean Corpuscular Volume 87.3 fL (80-97); Mean Platelet Volume 7.9 fL (7.5-11.2); Platelet Count 231 10^3/uL (150-450); Red Blood Count 4.17 10^6/uL (3.63-4.92); Red Cell Distribution Width 15.9 % (12-17); White Blood Count 14.5 10^3/uL (3.8-11.8)
[2024-09-25 06:52] LABS: INR 3.13 (0.85-1.14)
[2024-09-25 07:02] LABS: Albumin 3.6 g/dL (3.5-5.7); Albumin/Globulin Ratio 1.5 (1-3); Calcium 9.1 mg/dL (8.6-10.3); Creatinine, Serum 1.17 mg/dL (0.51-0.95); Globulin 2.4 g/dL (2-4); Potassium 5.4 mmol/L (3.5-5.0); Total Bilirubin 0.5 mg/dL (0.2-1.0); eGFR CKD-EPI 45.2 (>60)
[2024-09-25 14:54] LABS: Urine Appearance Turbid; Urine Bilirubin Negative (Negative); Urine Blood Negative (Negative); Urine Color Light-Yellow; Urine Glucose Negative (Negative); Urine Ketones Negative (Negative); Urine Nitrite Negative (Negative); Urine Protein Negative (Negative); Urine Specific Gravity 1.014 (1.002-1.030); Urine Urobilinogen Negative (Negative)
[2024-09-25 15:26] LABS: Urine Bacteria 1+ /HPF (Absent); Urine Red Blood Cell 1+(3-5/hpf) /HPF (0-Trace); Urine Squamous Epithelial Cell Present /HPF (Absent); Urine Transitional Epithelial Present /HPF (Absent); Urine White Blood Cell 3+(>20/hpf) /HPF (0-Trace)
[2024-09-27 06:31] LABS: ABS Basophils 0.1 10^3/uL (0.0-0.1); ABS Eosinophils 0.1 10^3/uL (0.0-0.5); ABS Lymphocytes 2.5 10^3/uL (1.0-4.8); ABS Neutrophils 5.9 10^3/uL (1.5-7.6); ABS Nucleated RBC 0.01 10^3/ul; Eosinophil % 1.3 %; Hematocrit 38.1 % (35-45); Lymphocyte % 26.3 %; Mean Corpuscular Hemoglobin 29.8 pg (27-33); Mean Corpuscular Hgb Conc 34.2 g/dL (31-36); Mean Corpuscular Volume 87.1 fL (80-97); Mean Platelet Volume 7.7 fL (7.5-11.2); Nucleated Red Blood Cells % 0.1 %/100WBC (0.0-0.8); Platelet Count 221 10^3/uL (150-450); Red Blood Count 4.37 10^6/uL (3.63-4.92); Red Cell Distribution Width 16.2 % (12-17); White Blood Count 9.6 10^3/uL (3.8-11.8)
[2024-09-27 06:35] LABS: INR 2.5 (0.85-1.14)
[2024-09-27 07:04] LABS: Calcium 9.2 mg/dL (8.6-10.3); Creatinine, Serum 1.31 mg/dL (0.51-0.95); Potassium 5.2 mmol/L (3.5-5.0); eGFR CKD-EPI 39.4 (>60)
[2024-09-28] MEDS ORDERED: ARNICARE TOPICAL PRN (13:30)
[2024-09-29 07:36] LABS: INR 2.43 (0.85-1.14)
[2024-10-01] MEDS: Warfarin DAILY REMINDER **NOTE FOLLOW UP SCH (15:47)
[2024-10-02 06:28] LABS: ABS Eosinophils 0.2 10^3/uL (0.0-0.5); ABS Neutrophils 9.6 10^3/uL (1.5-7.6); ABS Nucleated RBC 0.01 10^3/ul; Eosinophil % 1.3 %; Hematocrit 35.7 % (35-45); Lymphocyte % 15.8 %; Mean Corpuscular Hemoglobin 29.6 pg (27-33); Mean Corpuscular Hgb Conc 33.8 g/dL (31-36); Mean Corpuscular Volume 87.7 fL (80-97); Mean Platelet Volume 7.9 fL (7.5-11.2); Nucleated Red Blood Cells % 0.1 %/100WBC (0.0-0.8); Platelet Count 210 10^3/uL (150-450); Red Blood Count 4.07 10^6/uL (3.63-4.92); Red Cell Distribution Width 16.1 % (12-17); White Blood Count 12.8 10^3/uL (3.8-11.8)
[2024-10-02 06:52] LABS: INR 2.58 (0.85-1.14)
[2024-10-02 07:09] LABS: Albumin 3.3 g/dL (3.5-5.7); Albumin/Globulin Ratio 1.4 (1-3); Calcium 8.8 mg/dL (8.6-10.3); Creatinine, Serum 1.31 mg/dL (0.51-0.95); Globulin 2.4 g/dL (2-4); Potassium 5.9 mmol/L (3.5-5.0); Total Bilirubin 0.5 mg/dL (0.2-1.0); Total Protein 5.7 g/dL (6.4-8.9); eGFR CKD-EPI 39.4 (>60)
[2024-10-02] MEDS: SODIUM ZIRCONIUM CYCLOSILICATE 5 GM PACKET PO ONE (16:04)
[2024-10-02] MEDS ORDERED: Albuterol HFA INHALER 8 gm MDI INH PRN (20:04)
[2024-10-03] MEDS: cefTRIAXone 1 gm/50 mL D5W 1 GM/50 ML BAG IV SCH (13:03)
[2024-10-04 07:02] LABS: INR 2.66 (0.85-1.14)
[2024-10-04 08:32] LABS: Creatinine, Serum 1.26 mg/dL (0.51-0.95); Potassium 5.3 mmol/L (3.5-5.0); eGFR CKD-EPI 41.3 (>60)
[2024-10-06 06:56] LABS: ABS Eosinophils 0.2 10^3/uL (0.0-0.5); ABS Monocytes 0.8 10^3/uL (0.0-0.9); ABS Neutrophils 5.5 10^3/uL (1.5-7.6); Eosinophil % 2.8 %; Hematocrit 34.3 % (35-45); Hemoglobin 11.8 g/dL (11.5-14.3); Lymphocyte % 23.1 %; Mean Corpuscular Hemoglobin 30.1 pg (27-33); Mean Corpuscular Hgb Conc 34.4 g/dL (31-36); Mean Corpuscular Volume 87.4 fL (80-97); Platelet Count 205 10^3/uL (150-450); Red Blood Count 3.93 10^6/uL (3.63-4.92); White Blood Count 8.6 10^3/uL (3.8-11.8)
[2024-10-06 07:10] LABS: INR 2.87 (0.85-1.14)
[2024-10-06 07:20] LABS: Calcium 8.8 mg/dL (8.6-10.3); Creatinine, Serum 1.12 mg/dL (0.51-0.95); Potassium 4.8 mmol/L (3.5-5.0); eGFR CKD-EPI 47.6 (>60)
[2024-10-06 16:11] VITALS: BP 130/56
[2024-10-07] MEDS ORDERED: Amoxicillin/Clavul 875/125 TAB (Augmentin 875 tab) PO SCH (09:00)
== END 2024-10-06 18:40 | disposition home or self-care (01) | DRG 64 ==
LOC: PMRU 15:55
PROVIDERS: ADMIT Physical Medicine & Rehabilitation; ATTEND Physical Medicine & Rehabilitation